=== PATIENT | male | born 1965 | race Caucasian/White ===

== ENCOUNTER 2022-10-27 13:33 | Outpatient (RCR) | payer OTHER, SELFPAY | END 2022-11-22 14:59 | disposition home or self-care (01) | LOC: PT 13:33 | PROVIDERS: PCP Family Medicine; Visit Provider Family Medicine | DX: S06.6XAD Traumatic subarachnoid hemorrhage with loss of consciousness status unknown, subsequent encounter (principal); W19.XXXD Unspecified fall, subsequent encounter | CPT/HCPCS: 97110; 97112; 97162; 97530 ==

== ENCOUNTER 2022-11-01 14:16 | Outpatient (RCR) | payer OTHER, SELFPAY | END 2022-12-26 16:34 | disposition home or self-care (01) | LOC: OT 14:16 | PROVIDERS: PCP Family Medicine; Visit Provider Family Medicine | DX: S06.6XAD Traumatic subarachnoid hemorrhage with loss of consciousness status unknown, subsequent encounter (principal); W19.XXXD Unspecified fall, subsequent encounter | CPT/HCPCS: 97018; 97022; 97110; 97165; 97530 ==

== ENCOUNTER 2022-11-30 12:50 | Outpatient (RCR) | payer OTHER, SELFPAY | END 2023-01-12 15:03 | disposition home or self-care (01) | LOC: ST 12:50 | PROVIDERS: PCP Family Medicine | DX: S06.6X0D Traumatic subarachnoid hemorrhage without loss of consciousness, subsequent encounter (principal); H53.9 Unspecified visual disturbance; R41.841 Cognitive communication deficit | CPT/HCPCS: 92507; 92523 ==

== ENCOUNTER 2023-10-10 07:19 | Outpatient (OUT) | payer OTHER, SELFPAY ==
--- OUTSIDE RECORDS SUMMARY | 2023-10-10 07:26 | XMS_ITS | CCD ---
Author Organization [facility] Inform ion Partnership [facility] Care Team Providers Care Kitchen Helper Name Role Phone DR SEBASTIAN CARO Attending Unavailable DR SEBASTIAN CARO Consulting Unavailable DR SEBASTIAN CARO Primary Care Unavailable DR SEBASTIAN CARO Admitting Unavailable Unavailable Primary Care Provider UnavailKeyana Scott Unavailable CINDY DE LA PAZ Attending Unavailable CINDY DE LA PAZ Attending Unavailable CINDY DE LA PAZ Attending Unavailable MD Ibrahima Zaman Attending Unavailable MD Ibrahima Zaman Attending Unavailable MD Ibrahima Zaman Attending Unavailable MD Ibrahima Zaman Attending Unavailable MD Ibrahima Zaman Attending Unavailable MD Ibrahima Zaman Attending Unavailable MD Ibrahima Zaman Attending Unavailable MD Ibrahima Zaman Attending Unavailable JUN ARGUETA Referring Unavailable JUN ARGUETA Referring Unavailable JUN ARGUETA Referring Unavailable BRIDGET CORBIN Consulting Unavailable JERMAINE ALEXANDRA Attending Unavailable JERMAINE ALEXANDRA Admitting Unavailable JUN ARGUETA Consulting Unavailable DOMINICK MORROW Consulting Unavailable KYLIE MEMBRENO Consulting Unavailable Allergies Allergy Classification Reported Allergen(s) Allergy Type Date of Onset Reaction(s) Facility (2 sources) Penicillins; Translations: [penicillins] Propensity to adverse reactions to drug 3 [facility] (1 source) Penicillin V Drug Allergy unknown Issuu Other Medications Current Medications Medication Drug Class(es) Dates Sig (Normalized) Sig (Original) acetaminophen 500 mg oral tablet (1 source) Start: 10-03-2022 acetaminophen (TYLENOL) tablet 1,000 mg 0.3 ml enoxaparin sodium 100 mg/ml prefilled syringe (2 sources) Low Molecular Weight Heparin Start: 10-02-2022 enoxaparin Sodium (LOVENOX) injection 30 mg ergocalciferol 1.25 mg oral capsule (1 source) Provitamin D2 Compound Start: 10-02-2022 take 1 capsule by mouth every week vitamin D (ERGOCALCIFEROL) 1.25 MG (49647 UT) CAPS capsule Take 1 capsule by mouth once a week 8 capsule 0 10/02/2022 Active fluticasone propionate 0.05 mg/actuat metered dose nasal spray (1 source) Corticosteroid Start: 02-06-2023 take 1 spray(s) nasal route once daily Fluticasone Propionate 50 MCG/ACT 1 spray in each nostril Nasally Once a day for 14 day(s) Jan, Active levETIRAcetam 500 mg oral tablet (3 sources) Start: 10-03-2022 End: 10-08-2022 take 1 tablet by mouth twice daily levETIRAcetam (KEPPRA) 500 MG tablet Take 1 tablet by mouth 2 times daily for 2 doses 60 tablet 0 10/07/2022 10/08/2022 Active Start: 10-01-2022 End: 10-03-2022 levETIRAcetam (KEPPRA) 500 m g/100 mL IVPB oxyCODONE hydrochloride 5 mg oral tablet (1 source) Opioid Agonist Start: 10-03-2022 oxyCODONE (RENATO ICODONE) immediate release tablet 5 mg polyethylene glycol 3350 07540 mg powder for oral solution (1 source) Osmotic Laxative Start: 10-01-2022 polyethylene glycol (GLYCOLAX) packet 17 g sertraline 50 mg oral tablet (4 sources) Serotonin Reuptake Inhibitor Start: 10-06-2022 sertraline (ZOLOFT) tablet 50 mg Start: 10-04-2022 End: 10-05-2022 take 25 mg by mouth once daily 25 mg, Oral, DAILY, Fir st dose on Mon10/04/22 at 0900, Until Discontinued Sertraline HCl A ctive Completed/Discontinued Medications Medication Drug Class(es) Dates Sig (Normalized) Sig (Original) 100 ml calcium gluconate 20 mg/ml injection (1 source) Start: 10-02-2022 End: 10-02-2022 calcium gluconate 2,000 mg in sodium chloride 100 mL ceFAZolin (ANCEF) 2000 mg in sterile water 20 mL IV syringe (3 sources) Start: 10-06-2022 End: 10-07-2022 2,000 mg, IntraVENous, EVERY 8 HOURS, 2 doses, First dose on Mon10/06/22 at 2200, Last dose on Mon10/07/22 at 0600 Antimicrobial Indications: Surgical Prophylaxis Administer over 5 mins. Start: 10-01-2022 End: 10-06-2022 ceFAZolin (ANCEF) 2000 mg in sterile water 20 mL IV syringe Start: 10-01-2022 End: 10-01-2022 ceFAZolin (ANCEF) 2000 mg in sterile water 20 mL IV syringe ceFAZolin 2000 mg in 20 mL SWFI IV Syringe IV syringe (1 source) Start: 10-01-2022 End: 10-01-2022 ceFAZolin 2000 mg in 20 mL SWFI IV Syringe IV syringe famotidine 20 mg oral tablet (2 sources) Histamine-2 Receptor Antagonist Start: 10-03-2022 End: 10-05-2022 famotidine (PEPCID) tablet 20 mg Start: 10-01-2022 End: 10-03-2022 famotidine (PEPCID) injectio n 20 mg 2 ml fentaNYL 0.05 mg/ml injection (1 source) Opioid Agonist Start: 10-01-2022 End: 10-01-2022 fentaNYL (SUBLIMAZE) injection 100 mcg Start: 10-01-2022 End: 10-01-2022 fentaNYL (SUBLIMAZE) injecti on 100 mcg iopamidol (ISOVUE-370) 76 % injection 130 mL (1 source) Start: 10-01-2022 End: 10-01-2022 iopamidol (ISOVUE-370) 76 % injection 130 mL iopamidol (ISOVUE-370) 76 % injection 75 mL (1 source) Start: 10-01-2022 End: 10-01-2022 iopamidol (ISOVUE-370) 76 % injection 75 mL Ketorolac (1 source) Nonsteroidal Anti-inflammatory Drug, Cyclooxygenase Inhibitor Start: 05-01-2017 Toradol per 15 mg Apr, 60 mg 10 ml lidocaine hydrochloride 10 mg/ml injection (1 source) Antiarrhythmic, Amide Local Anesthetic Start: 10-01-2022 End: 10-01-2022 lidocaine 1 % injection 20 mL Start: 10-01-2022 End: 10-01-2022 lidocaine 1 % injection 20 m L 2 ml ondansetron 2 mg/ml injection (1 source) Serotonin-3 Receptor Antagonist Start: 10-01-2022 End: 10-01-2022 ondansetron (ZOFRAN) injection 4 mg potassium phosphate 15 mmol in sodium chloride 0.9 % 250 mL IVPB (1 source) Start: 10-02-2022 End: 10-02-2022 potassium phosphate 15 mmol in sodium chloride 0.9 % 250 mL IVPB 5 ml sodium chloride 9 mg/ml injection (4 sources) Start: 10-01-2022 End: 10-05-2022 0.9 % sodium chloride infusion Start: 10-01-2022 End: 10-05-2022 sodium chloride flush 0.9 % injection 5-40 mL sodium phosphate 20 mmol in sodium chloride 0.9 % 250 mL IVPB (1 source) Start: 10-03-2022 End: 10-03-2022 sodium phosphate 20 mmol in sodium chloride 0.9 % 250 mL IVPB Problems Active Problems Problem Classification Problem Date Documented Da te Episodic/Chronic Acute cerebrovascular disease (6 sources) Hemorrhage into subarachnoid space of neuraxis; Translations: [Nontraumatic subarachnoid hemorrhage, unspecified] Onset: 10-01-2022 Chronic Intracranial injury (2 sources) Subarachnoid hemorrhage due to traumatic injury; Translations: [Traumatic intracranial subarachnoid hemorrhage (HCC)] Onset: 10-01-2022 Episodic Other screening for suspected conditions (not mental disorders or infectious disease) (1 source) Encounter for screening for malignant neoplasm of prostate; Translations: [ENC SCREEN MALIG NEOPLASM PROSTATE] Onset: 08-19-2021 Episodic Otitis media and related conditions (1 source) Unspecified nonsuppurative otitis media, unspecified ear Episodic Past or Other Problems Problem Classification Problem Date Documented Da te Episodic/Chronic Fracture of upper limb (7 sources) Closed Galeazzi fracture; Translations: [Galeazzi's fracture of left radius, initial encounter for closed fracture] Onset: 10-01-2022 Episodic Skull and face fractures (4 sources) Closed fracture of orbital floor (blow-out); Translations: [Fracture of orbital floor, unspecified side, initial encounter for closed fracture] Onset: 10-01-2022 Episodic Results Test Name Value Interpretation Reference Range Facil ity Ambulatory Visit Summaryon 0 09-11-2023 Ambulatory Visit Summary Ambulatory Visit Summary AZAEL AGOSTO :1965 Visit Date:09/11/2023 Ambulatory Visit Instructions Your Diagnosis Peripheral vision loss Seasonal allergic rhinitis due to pollen Fall on and from ladder, subsequent encounter Anxiety BMI 25.0-25.9,adult Overweight Nonsmoker Your Care Team Attending Physician - Ibrahima Zaman MD Primary Care Physician - Ibrahima Zaman MD This Is Your Medications List sertraline (sertraline 50 mg Tab) Procedures Performed History of repair of inguinal hernia. Discharge Vitals Temperature (Temporal Artery) 36.8 ?C Heart Rate (Peripheral) 76 Respiratory Rate 16 Blood Pressure 102/70 Height 173 cm Height 68 in Weight 77.7 kg Weight 170.94 lb BMI 25.96 What to do next Scheduled Follow-Up Appointments 2023 10:45 AM EDT With: Ibrahima Zaman MD Where: [facility] Normal [facility] Family Medicine Office/Clini c Noteon 09-11-2023 Family Medicine Office/Clinic Note Family Medicine Office/Clinic Note HPI Staff Azael is a 58 year old male presenting for a yearly check up Health Maintenance: Colonoscopy: refuses PSA: Last Labs: 09/12/22 questions/concerns: memory and vision not good History of Present Illness Patient is here for follow-up. Patient is really concerned about his memory. Patient states that he could be doing something such as picking out pain colors for his house. Being deep conversation with his about what colors they want and we do not want. And then 2 weeks later forget what they had even discussed. Patient does state he also forgets what he is doing if somebody stops him in the moment. Review of Systems PHQ Score Initial Depression Screen Score: 0 SCORE Physical Exam Vitals & Measurements T: 36.8 ?C(Temporal Artery) HR: 76(Peripheral) RR: 16 BP: 102/70 SpO2: 98% HT: 68 in HT: 173 cm WT: 77.7 kg WT: 170.94 lb BMI: 25.96 General: alert, no acute distress ENMT: oral mucosa moist, Cardiovascular: regular rate and rhythm, normal peripheral perfusion Respiratory: Lungs CTA, respirations non labored Extremities: no deformity, no trauma Neurological: oriented x 4, LOC appropriate for age, CN II-XII intact, motor strength equal & normal bilaterally, speech normal Abdomen: Soft, Nontender, Non-distended, + BS Assessment/Plan 1. 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 Seasonal allergic rhinitis due to pollen (J30.1: Allergic rhinitis due to pollen) - Stable 3. Fall on and from ladder, subsequent encounter (W11.XXXD: Fall on and from ladder, subsequent encounter) - Encouraged pt to follow up with neuro to help see if this TBI is causing the memory issues, or if other issues such as pseudodementia is. I do believe this is related to the TBI as the patient is forgetting things he was acutely involved in 4. Anxiety (F41.9: Anxiety disorder, unspecified) Patient is anxiety has improved significantly. Anxiety was related to concerns with having a job and being able to provide for his family. 5. BMI 25.0-25.9,adult (Z68.25: Body mass index [BMI] 25.0-25.9, adult) BMI education added to the chart 6. Overweight (E66.3: Overweight) Diet and exercise advised 7. Nonsmoker (Z78.9: Other specified health status) Please continue not to smoke. Total time spent preparing for the encounter, evaluating and assessing the patient, documenting the visit, and ordering appropriate follow-up work was 40 minutes. Follow-up No qualifying data available Patient Education BMI for Adults Problem List/Past Medical History Ongoing Anxiety Closed left hand fracture Fall on and from ladder, subsequent encounter Left hand fracture Lumbar strain Peripheral vision loss Seasonal allergic rhinitis due to pollen Historical No qualifying data Procedure/Surgical History History of repair of inguinal hernia. Medications sertraline 50 mg Tab, 50 mg= 1 tab(s), Oral, Daily, 1 refills Allergies penicillins (Unknown) Social History Tobacco Never (less than 100 in lifetime) Tobacco Use:. Never Smokeless Tobacco Use:., 09/11/2023 Family History Family history is negative Immunizations Vaccine Date Status Comments influenza virus vaccine, inactivated - Not Given Patient Refuses influenza virus vaccine, inactivated - Not Given Postpone due to refusal Normal [facility] Comment on above: Result Comment: Elec tronically Signed By: Ibrahima Zaman MD\.br\Date and Time Signed: 09/11/23 10:05 EDT Ambulatory Visit Summaryon 0 06-12-2023 Ambulatory Visit Summary AZAEL AGOSTO :1965 Visit Date:06/12/2023 Ambulatory Visit Instructions Your Diagnosis Anxiety Fall on and from ladder, subsequent encounter BMI 25.0-25.9,adult Over weight Nonsmoker Peripheral vision loss Your Care Team Attending Physician - Ibrahima Zaman MD Primary Care Physician - Ibrahima Zaman MD This Is Your Medications List sertraline (sertraline 50 mg Tab) Procedures Performed History of repair of inguinal hernia. Discharge Vitals Temperature (Temporal Artery) 37.1 ?C Heart Rate (Peripheral) 76 Respiratory Rate 16 Blood Pressure 120/82 Height 173 cm Height 68 in Weight 76.9 kg Weight 169.18 lb BMI 25.69 What to do next Scheduled Follow-Up Appointments Monday 9:15 AM EDT With: Ibrahima Zaman MD Where: [facility] [place] [address] [place] [address]- \.br\ Medications\.br \ What How Much When Instructions\.b r\ Unchanged sertraline (sertraline 50 mg Tab) 1 Tablets By Mouth Every day Pickup at [facility] #[id number]\.br\ Pharmacy Information\.br \ [facility] #[id number]: [address], [place] [id number] [phone]\.br\ Allergies\.br\ penicillins (Unknown)\.br\ Problems\.br\ Ongoing - Any problem that you are currently receiving treatment for.\.br\ Anxiety\.br\ Closed left hand fracture\.br\ Fall on and from ladder, subsequent encounter\.br\ Left hand fracture\.br\ Lumbar strain\.br\ Peripheral vision loss\.br\ Seasonal allergic rhinitis due to pollen\.br\ Patient Survey\.br\ You may receive a survey via text or e-mail asking about your office visit. Please share your experience with us by completing your survey. We appreciate your feedback and thank you for choosing us for your care.\.br\ \.br\ [facility] Medicine Office/Clini c Noteon 06-12-2023 Family Medicine Office/Clinic Note HPI Staff Azael is a 57 year old male presenting for 2 month follow up anxiety and recent OV with Dr De La Paz for the visual defect left eye and still advised not to drive Just saw Dr De La Paz again 06/09/23 and feels the peripheral vision is permanent vision loss for that part and will not change Follow up for Mental Status: Medication adherence- Yes, takes medication as prescribed Medication refill needed: yes Suicidal thoughts-Not at this time Most recent LUIS CARLOS: 0 Most recent PHQ: 0 questions/concerns: needs his sertraline refilled. Per , sherry terminated his job May 21, said there wasn't a job there for him. History of Present Illness - Here for follow up. - Still has the loss of vision. - Cannot see in the peripheral vision. - Otherwise, doing well. Review of Systems PHQ Score Initial Depression Screen Score: 0 SCORE Physical Exam Vitals & Measurements T: 37.1 ?C(Temporal Artery) HR: 76(Peripheral) RR: 16 BP: 120/82 SpO2: 98% HT: 68 in HT: 173 cm WT: 76.9 kg WT: 169.18 lb BMI: 25.69 General: alert, no acute distress ENMT: oral mucosa moist, Cardiovascular: regular rate and rhythm, normal peripheral perfusion Respiratory: Lungs CTA, respirations non labored Extremities: no deformity, no trauma Neurological: oriented x 4, LOC appropriate for age, CN II-XII intact, motor strength equal & normal bilaterally, speech normal Abdomen: Soft, Nontender, Non-distended, + BS Assessment/Plan 1. Anxiety (F41.9: Anxiety disorder, unspecified) - Well controlled. - Continue taking meds as before 2. Fall on and from ladder, subsequent encounter (W11.XXXD: Fall on and from ladder, subsequent encounter) - Stable. - No change 3. BMI 25.0-25.9,adult (Z68.25: Body mass index [BMI] 25.0-25.9, adult) - BMI education 4. Over weight (E66.3: Overweight) - Diet and exercise advised 5. Nonsmoker (Z78.9: Other specified health status) - Please continue to not smoke 6. 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 - Sees Optho - Paperwork done. Orders: sertraline, 50 mg = 1 tab(s), Oral, Daily, # 90 tab(s), Refills(s) 1, Pharmacy: [facility] #[id number], 173, cm, 06/12/23 13:01:00 EDT, Height/Length Dosing, 76.9, kg, 06/12/23 13:01:00 EDT, Weight Dosing Follow-up No qualifying data available Problem List/Past Medical History Ongoing Anxiety Closed left hand fracture Fall on and from ladder, subsequent encounter Left hand fracture Lumbar strain Peripheral vision loss Seasonal allergic rhinitis due to pollen Historical No qualifying data Procedure/Surgical History History of repair of inguinal hernia. Medications sertraline 50 mg Tab, 50 mg= 1 tab(s), Oral, Daily, 1 refills Allergies penicillins (Unknown) Social History Tobacco Never (less than 100 in lifetime) Tobacco Use:. Never Smokeless Tobacco Use:., 06/12/2023 Family History Family history is negative Immunizations Vaccine Date Status Comments influenza virus vaccine, inactivated - Not Given Patient Refuses influenza virus vaccine, inactivated - Not Given Postpone due to refusal [facility] Comment on above: Result Comment: Elec tronically Signed By: Austyn FIGUEROA, Ibrahima Pritchard\.br\Date and Time Signed: 06/12/23 13:22 EDT Consultation Noteon 06-07-19 Consultation Note [id number] 6E#1.00TIFF [facility] Consultation Noteon 05-26-19 Consultation Note [id number] 2E#1.00TIFF [facility] 04-26-2023 Forms [id number] D8#1.00TIFF [facility] 04-03-2023 Forms [id number] 98#1.00TIFF [facility] Forms [id number] D7#1.00TIFF Sravant[facility] Family Medicine Office/Clini c Noteon 03-29-2023 Family Medicine Office/Clinic Note HPI Staff Azael is a 57 year old male presenting for 2 month follow up and discuss RTW or extend currently off through Mar 23 due to the vision issues Follow up for Mental Status: Medication adherence- Yes, takes medication as prescribed Medication refill needed: no Suicidal thoughts-Not at this time Most recent LUIS CARLOS: Most recent PHQ: flu: due questions/concerns: c/o back pain and no improvement with vision History of Present Illness Azael Agosto is a 57-year-old male who presents today for a follow-up evaluation. The patient reports that his visual acuity has not improved and has remains unchanged. He reports having a recurrent back issue. He says this is the third episode of it. He notes he was diagnosed with degenerative disc disease in [place] after a comprehensive examination. He reports starting to feel pain in his spine while moving something recently. Although the pain has shown some improvement, yesterday, 03/22/2023, he was unable to bend down to remove his socks, requiring assistance from his grandson. He rated the pain as 10. He estimated his current pain level to be around 2 or 3. He reports the pain is mostly in the mid-back region. He felt relief as he stretched his body slowly, but the pain came back when he resumed sitting position. Despite the discomfort, he finds the pain manageable. His pain is relieved when stretched towards lumbar flexion. His pain on 03/22/2023 was a 10/10 but today he is at 2 or 3/10. The integrated logistics programs director did not state on his note that the patient should be off work, but they recommended a follow-up to check for vision improvement. He only has 15 days until his short term disability assistance . He spoke with the hr receptionist of Dr. De La Paz'abran to ask for a medical leave and was told that it is a task for a general practitioner. He has been struggling with anxiety ever since he stopped seeing Dr. Molina. He mentions that his doctor told him that he was fine and that he did not require any further surgery. He reports that his hernia surgery was performed by Dr Caro 40 years ago. He also mentions that Dr Caro informed him about a problem with his back but assured him not to be concerned about it. He reports having cerumen accumulation problem. He applies one or two drops of docusate ear drops in his ears as a remedy. Physical Exam Vitals & Measurements HR: 91(Peripheral) BP: 124/92 SpO2: 95% HT: 68 in HT: 173 cm WT: 78.4 kg WT: 172.48 lb BMI: 26.2 General: alert, no acute distress ENMT: oral mucosa moist, no pharyngeal erythema or exudate Cardiovascular: regular rate and rhythm, normal peripheral perfusion Respiratory: Lungs CTA, respirations non labored Extremities: no deformity, no trauma Neurological: oriented x 4, LOC appropriate for age, CN II-XII intact, motor strength equal & normal bilaterally, speech normal Musculoskeletal: Minimal pain to palpation in the left lower lumbar region in the paraspinal area. Assessment/Plan 1. Anxiety (F41.9: Anxiety disorder, unspecified) His anxiety is well controlled despite frustrations with him being unable to work. He will be reaching out to his integrated logistics programs director to consult for a likelihood for improvement. If not, we will to take the patient off of work and place him on jail disability. Since I do not specialize in ophthalmology, I am uncertain of his ability to work despite the changes in vision. We will leave it to his integrated logistics programs director. 2. Fall on and from ladder, subsequent encounter (W11.XXXD: Fall on and from ladder, subsequent encounter) He has been doing well except for his vision. I encouraged the patient to follow up with ophthalmology. 3. Seasonal allergic rhinitis due to pollen (J30.1: Allergic rhinitis due to pollen) He will continue with over the counter medication as needed. 4. BMI 26.0-26.9,adult (Z68.26: Body mass index [BMI] 26.0-26.9, adult) BMI education given. 5. Non-smoker (Z78.9: Other specified health status) Please continue not to smoke. 6. Lumbar strain (S39.012A: Strain of muscle, fascia and tendon of lower back, initial encounter) We discussed lifestyle modifications along with stretching and exercise to improve his lumbar strain. Portions of this record may have been created with voice recognition artificial intelligence software, specifically [employer], [employer] and or Dragon [employer]ient Experience. Substitutions may have occurred due to the inherent limitations of voice recognition and artificial intelligence software. Documentation services were performed after patient or guardian consented to allow Dragon [employer]ient [employer]perience to record this visit. SHIRLEY pet nutrition specialist and provider reviewed before signing. SHIRLEY: Xiomara Ferrari Follow-up No qualifying data available Problem List/Past Medical History Ongoing Anxiety Closed left hand fracture Fall on and from ladder, subsequent encounter Left hand fracture Lumbar strain Seasonal allergic rhinitis due to pollen (more content not included)... Normal [facility] Comment on above: Result Comment: Elec tronically Signed By: Ibrahima Zaman MD\.br\Date and Time Signed: 03/29/23 11:20 EST\.br\Electronically Co-Signed By: Jerry Momin\.br\Date and Time Co-Signed: 03/23/23 18:08 EST [facility] 03-07-2023 Forms [id number] FF#1.00TIFF [facility] 03-01-2023 Forms [id number] BE#1.00TIFF [facility] Consultation Noteon 02-22-19 Consultation Note [id number] EF#1.00TIFF [facility] Ambulatory Visit Summaryon 1 03-18-2022 Ambulatory Visit Summary AZAEL SCHNEIDER A :1965 Visit Date:01/16/2023 Ambulatory Visit Instructions Your Diagnosis Fall on and from ladder, subsequent encounter Anxiety Closed fracture of left hand with routine healing, subsequent encounter Subdural hematoma BMI 26.0-26.9,adult Overweight Nonsmoker Your Care Team Attending Physician - Ibrahima Zaman MD. Primary Care Physician - Ibrahima Zaman MD This Is Your Medications List Contact prescribing physician if questions or concerns sertraline (sertraline 50 mg Tab) Procedures Performed History of repair of inguinal hernia. Discharge Vitals Temperature (Temporal Artery) 37.2 ?C Heart Rate (Peripheral) 74 Respiratory Rate 16 Blood Pressure 136/78 Height 173.3 cm Height 68 in Weight 79.2 kg Weight 174.24 lb BMI 26.37 What to do next Scheduled Follow-Up Appointments 2023 1:00 PM EST With: Austyn FIGUEROA, Ibrahima Pritchard Where: [facility] [address] [place] [address]- \.br\ Medications\.br \ What How Much When Instructions\.b r\ Unchanged sertraline (sertraline 50 mg Tab) 1 Tablets By Mouth Every day Contact prescribing physician if questions or concerns \.br\ Medications and Immunizations Administered\.b r\ Not Given\.br\ influenza virus vaccine, inactivated, Patient Refuses\.br\ Allergies\.br\ penicillins (Unknown)\.br\ Problems\.br\ Ongoing - Any problem that you are currently receiving treatment for.\.br\ Anxiety\.br\ Closed left hand fracture\.br\ Fall on and from ladder, subsequent encounter\.br\ Left hand fracture\.br\ Seasonal allergic rhinitis due to pollen\.br\ Patient Survey\.br\ You may receive a survey via text or e-mail asking about your office visit. Please share your experience with us by completing your survey. We appreciate your feedback and thank you for choosing us for your care.\.br\ Education Materials\.br\ BMI for Adults\.br\ What is BMI?\.br\ Body mass index (BMI) is a number that is calculated from a person's weight and height. BMI can help estimate how much of a person's weight is composed of fat. BMI does not measure body fat directly. Rather, it is an alternative to procedures that directly measure body fat, which can be difficult and expensive.\.br\ BMI can help identify people who may be at higher risk for certain medical problems.\.br\ What are BMI measurements used for?\.br\ BMI is used as a screening tool to identify possible weight problems. It helps determine whether a person is obese, overweight, a healthy weight, or underweight.\.b r\ BMI is useful for:\.br\ ? \.br\ Identifying a weight problem that may be related to a medical condition or may increase the risk for medical problems.\.br\ ? \.br\ Promoting changes, such as changes in diet and exercise, to help reach a healthy weight. BMI screening can be repeated to see if these changes are working.\.br\ How is BMI calculated?\.br \ BMI involves measuring your weight in relation to your height. Both height and weight are measured, and the BMI is calculated from those numbers. This can be done either in [place] or metric measurements. Note that charts and online BMI calculators are available to help you find your BMI quickly and easily without having to do these calculations yourself.\.br\ To calculate your BMI in [place] measurements:\. br\ \.br\ 1. \.br\ Measure your weight in pounds (lb).\.br\ 2. \.br\ Multiply the number of pounds by 703.\.br\ ? \.br\ For example, for a person who weighs 180 lb, multiply that number by 703, which equals 126,540.\.br\ 3. \.br\ Measure your height in inches. Then multiply that number by itself to get a measurement called inches squared. \.br\ ? \.br\ For example, for a person who is 70 inches tall, the inches squared measurement is 70 inches x 70 inches, which equals 4,900 inches squared.\.br\ 4. \.br\ Divide the total from step 2 (number of lb x 703) by the total from step 3 (inches squared): 126,540 ? 4,900 = 25.8. This is your BMI.\.br\ To calculate your BMI in metric measurements:\. br\ 1. \.br\ Measure your weight in kilograms (kg).\.br\ 2. \.br\ Measure your height in meters (m). Then multiply that number by itself to get a measurement called meters squared. \.br\ ? \.br\ For example, for a person who is 1.75 m tall, the meters squared measurement is 1.75 m x 1.75 m, which is equal to 3.1 meters squared.\.br\ 3. \.br\ Divide the number of kilograms (your weight) by the meters squared number. In this example: 70 ? 3.1 = 22.6. This is your BMI.\.br\ What do the results mean?\.br\ BMI charts are used to identify whether you are underweight, normal weight, overweight, or obese. The following guidelines will be used:\.br\ ? \.br\ Underweight: BMI less than 18.5.\.br\ ? \.br\ Normal weight: BMI between 18.5 and 24.9.\.br\ ? \.br\ Overweight: BMI between 25 and 29.9.\.br\ ? \.br\ Obese: BMI of 30 or above.\.br\ Keep these notes in mind:\.br\ ? \.br\ Weight includes both fat and muscle, so someone with a muscular build, such as an athlete, may have a BMI that is higher than 24.9. In cases like these, BMI is not an accurate measure of body fat.\.br\ ? \.br\ To determine if excess body fat is the cause of a BMI of 25 or higher, further assessments may need to be done by a health care provider.\.br\ ? \.br\ BMI is usually interpreted in the same way for men and women.\.br\ Where to find more information\.br \ For more information about BMI, including tools to quickly calculate your BMI, go to these websites:\.br\ ? \.br\ Centers for Disease Control and Prevention: www.cdc.gov\.br \ ? \.br\ [place] [employer]: www.heart.org\. br\ ? \.br\ National Heart, Lung, and Blood Hooper: www.nhlbi.nih.g ov\.br\ Summary\.br\ ? \.br\ Body mass index (BMI) is a number that is calculated from a person's weight and height.\.br\ ? \.br\ BMI may help estimate how much of a person's weight is composed of fat. BMI can help identify those who may be at higher risk for certain medical problems.\.br\ ? \.br\ BMI can be measured using [place] measurements or metric measurements.\. br\ ? \.br\ BMI charts are used to identify whether you are underweight, normal weight, overweight, or obese.\.br\ This information is not intended to replace advice given to you by your health care provider. Make sure you discuss any questions you have with your health care provider.\.br\ Document Revised: 10/30/2019 Document Reviewed: 09/06/2019 Elsevier Patient Education ? 2022 [employer].br\ \.br\ [facility] Ambulatory Visit Summary AZAEL AGOSTO :1965 Visit Date:01/16/2023 Ambulatory Visit Instructions Your Diagnosis Fall on and from ladder, subsequent encounter Anxiety Closed fracture of left hand with routine healing, subsequent encounter Subdural hematoma BMI 26.0-26.9,adult Overweight Nonsmoker Your Care Team Attending Physician - Ibrahima Zaman MD Primary Care Physician - Ibrahima Zaman MD This Is Your Medications List sertraline (sertraline 50 mg Tab) Procedures Performed History of repair of inguinal hernia. Discharge Vitals Temperature (Temporal Artery) 37.2 ?C Heart Rate (Peripheral) 74 Respiratory Rate 16 Blood Pressure 136/78 Height 173.3 cm Height 68 in Weight 79.2 kg Weight 174.24 lb BMI 26.37 What to do next Scheduled Follow-Up Appointments 2023 1:00 PM EST With: Ibrahima Zaman MD Where: [facility] Normal [address] [place] [address]- \.br\ Medications\.br \ What How Much When Instructions\.b r\ Unchanged sertraline (sertraline 50 mg Tab) 1 Tablets By Mouth Every day\.br\ Medications and Immunizations Administered\.b r\ Not Given\.br\ influenza virus vaccine, inactivated, Patient Refuses\.br\ Allergies\.br\ penicillins (Unknown)\.br\ Problems\.br\ Ongoing - Any problem that you are currently receiving treatment for.\.br\ Anxiety\.br\ Closed left hand fracture\.br\ Fall on and from ladder, subsequent encounter\.br\ Left hand fracture\.br\ Seasonal allergic rhinitis due to pollen\.br\ Patient Survey\.br\ You may receive a survey via text or e-mail asking about your office visit. Please share your experience with us by completing your survey. We appreciate your feedback and thank you for choosing us for your care.\.br\ \.br\ [facility] Family Medicine Office/Clini c Noteon 01-16-2023 Family Medicine Office/Clinic Note HPI Staff Azael is a 57 year old male presenting for follow up anxiety Follow up for Mental Status: Medication adherence- Yes, takes medication as prescribed MEdication refill needed: no Suicidal thoughts-Not at this time Most recent LUIS CARLOS: 0 Most recent PHQ: 0 flu: refused questions/concerns: released from neuro and ortho and all care will go to PCP now Gave him 6 more weeks off work most she would extend. 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 - Anxiety is doing well. - For more information please see staff HPI. Review of Systems PHQ Score Initial Depression Screen Score: 0 SCORE Physical Exam Vitals & Measurements T: 37.2 ?C(Temporal Artery) HR: 74(Peripheral) RR: 16 BP: 136/78 SpO2: 100% HT: 68 in HT: 173.3 cm WT: 79.2 kg WT: 174.24 lb BMI: 26.37 General: alert, no acute distress ENMT: oral mucosa moist, Cardiovascular: normal peripheral perfusion Respiratory: respirations non labored Extremities: no deformity, no trauma Neurological: oriented x 4, LOC appropriate for age, CN II-XII intact, motor strength equal & normal bilaterally, speech normal Assessment/Plan 1. Fall on and from ladder, subsequent encounter (W11.XXXD: Fall on and from ladder, subsequent encounter) - Doing good. NS ok-ed him to go back to work - Will monitor 2. Anxiety (F41.9: Anxiety disorder, unspecified) - Doing great. - Pt is the calmest he has been 3. Closed fracture of left hand with routine healing, subsequent encounter (S62.92XD: Unspecified fracture of left wrist and hand, subsequent encounter for fracture with routine healing) - NO issues today. 4. Subdural hematoma (S06.5XAA: Traumatic subdural hemorrhage with loss of consciousness status unknown, initial encounter) - Resolved but still having some eye sight issues. - WIll follow - Needs Ana Cristina to put him off further from work as its 2/2 his sight now 5. BMI 26.0-26.9,adult (Z68.26: Body mass index [BMI] 26.0-26.9, adult) - BMI education given 6. Overweight (E66.3: Overweight) - Diet and exercise advised 7. Nonsmoker (Z78.9: Other specified health status) - Please continue to not smoke. Follow-up No qualifying data available Patient Education BMI for Adults Problem List/Past Medical History Ongoing Anxiety Closed left hand fracture Fall on and from ladder, subsequent encounter Left hand fracture Seasonal allergic rhinitis due to pollen Historical No qualifying data Procedure/Surgical History History of repair of inguinal hernia. Medications sertraline 50 mg Tab, 50 mg= 1 tab(s), Oral, Daily, 1 refills Allergies penicillins (Unknown) Social History Tobacco Never (less than 100 in lifetime) Tobacco Use:. Never Smokeless Tobacco Use:., 01/16/2023 Family History Family history is negative Immunizations Vaccine Date Status Comments influenza virus vaccine, inactivated - Not Given Patient Refuses influenza virus vaccine, inactivated - Not Given Postpone due to refusal Normal [facility] Comment on above: Result Comment: Elec tronically Signed By: Austyn FIGUEROA, Ibrahima Pritchard\.br\Date and Time Signed: 01/16/23 14:39 EST Patient Educationon 01-17-20 23 Patient Education Nutrition BMI for Adults What is BMI? Body mass index (BMI) is a number that is calculated from a person's weight and height. BMI can help estimate how much of a person's weight is composed of fat. BMI does not measure body fat directly. Rather, it is an alternative to procedures that directly measure body fat, which can be difficult and expensive. BMI can help identify people who may be at higher risk for certain medical problems. What are BMI measurements used for? BMI is used as a screening tool to identify possible weight problems. It helps determine whether a person is obese, overweight, a healthy weight, or underweight. BMI is useful for: ? Identifying a weight problem that may be related to a medical condition or may increase the risk for medical problems. ? Promoting changes, such as changes in diet and exercise, to help reach a healthy weight. BMI screening can be repeated to see if these changes are working. How is BMI calculated? BMI involves measuring your weight in relation to your height. Both height and weight are measured, and the BMI is calculated from those numbers. This can be done either in [place] or metric measurements. Note that charts and online BMI calculators are available to help you find your BMI quickly and easily without having to do these calculations yourself. To calculate your BMI in [place] measurements: 1. Measure your weight in pounds (lb). 2. Multiply the number of pounds by 703. ? For example, for a person who weighs 180 lb, multiply that number by 703, which equals 126,540. 3. Measure your height in inches. Then multiply that number by itself to get a measurement called inches squared. ? For example, for a person who is 70 inches tall, the inches squared measurement is 70 inches x 70 inches, which equals 4,900 inches squared. 4. Divide the total from step 2 (number of lb x 703) by the total from step 3 (inches squared): 126,540 ? 4,900 = 25.8. This is your BMI. To calculate your BMI in metric measurements: 1. Measure your weight in kilograms (kg). 2. Measure your height in meters (m). Then multiply that number by itself to get a measurement called meters squared. ? For example, for a person who is 1.75 m tall, the meters squared measurement is 1.75 m x 1.75 m, which is equal to 3.1 meters squared. 3. Divide the number of kilograms (your weight) by the meters squared number. In this example: 70 ? 3.1 = 22.6. This is your BMI. What do the results mean? BMI charts are used to identify whether you are underweight, normal weight, overweight, or obese. The following guidelines will be used: ? Underweight: BMI less than 18.5. ? Normal weight: BMI between 18.5 and 24.9. ? Overweight: BMI between 25 and 29.9. ? Obese: BMI of 30 or above. Keep these notes in mind: ? Weight includes both fat and muscle, so someone with a muscular build, such as an athlete, may have a BMI that is higher than 24.9. In cases like these, BMI is not an accurate measure of body fat. ? To determine if excess body fat is the cause of a BMI of 25 or higher, further assessments may need to be done by a health care provider. ? BMI is usually interpreted in the same way for men and women. Where to find more information For more information about BMI, including tools to quickly calculate your BMI, go to these websites: ? Centers for Disease Control and Prevention: www.cdc.gov ? [place] Heart [employer]: www.heart.org ? National Heart, Lung, and Blood Hooper: www.nhlbi.nih.gov Summary ? Body mass index (BMI) is a number that is calculated from a person's weight and height. ? BMI may help estimate how much of a person's weight is composed of fat. BMI can help identify those who may be at higher risk for certain medical problems. ? BMI can be measured using [place] measurements or metric measurements. ? BMI charts are used to identify whether you are underweight, normal weight, overweight, or obese. This information is not intended to replace advice given to you by your health care provider. Make sure you discuss any questions you have with your health care provider. Document Revised: 10/30/2019 Document Reviewed: 09/06/2019 [employer] Patient Education ? 2022 [employer] Normal [facility] XR WRIST LEFT (MIN 3 VIEWS)o n 01-06-2023 XR WRIST LEFT (MIN 3 VIEWS) History: 57-year-old male status post open reduction internal fixation left distal radius Comparison: 11/23/2022 Findings: 3 views of the left wrist (AP/lateral/oblique ) in a skeletally mature patient showing redemonstration of orthopedic hardware in the form plate and screws to left distal radius. No signs of hardware failure or loosening. Interval callus formation and bony consolidation when compared to prior films. No new acute osseous abnormalities. Joint alignment well-maintained. Impression: Stable hardware left wrist with interval healing Interpreted by: Jun Argueta DO Signed by: Jun Argueta DO 01/06/23 Final result Normal [facility] Discharge Note - OTon 2022 Discharge Note - OT [id number] 20#1.00TIFF Normal [facility] OT - Progress Noteson 2022 OT - Progress Notes [id number] 0A#1.00TIFF Normal [facility] XR WRIST LEFT (MIN 3 VIEWS)o n 12-19-2022 XR WRIST LEFT (MIN 3 VIEWS) History: 57-year-old male status post open reduction internal fixation left distal radius Comparison: 10/26/2022 Findings: 3 views of the left wrist (AP/lateral/oblique ) in a skeletally mature patient showing redemonstration orthopedic hardware in the form plate and screws to left distal radius. No signs of hardware failure or loosening. Interval callus formation when compared to prior films. Joint alignment well-maintained. No new acute osseous abnormalities. Impression: Stable hardware left wrist Interpreted by: Jun Argueta DO Signed by: Jun Argueta DO 12/19/22 Final result Normal [facility] Discharge Note - PTon 2022 Discharge Note - PT [id number] 53#1.00CD:[address] [facility] PT - Progress Noteson 2022 PT - Progress Notes [id number] 04#1.00CD:[address] [facility] Ambulatory Visit Summaryon 0 11-14-2022 Ambulatory Visit Summary AZAEL AGOSTO :1965 Visit Date:11/14/2022 Ambulatory Visit Instructions Your Diagnosis BMI 25.0-25.9,adult Overweight Anxiety Your Care Team Attending Physician - Ibrahima Zaamn MD Primary Care Physician - Ibrahima Zaman MD This Is Your Medications List sertraline (sertraline 50 mg Tab) Procedures Performed History of repair of inguinal hernia. Discharge Vitals Temperature (Oral) 36.8 ?C Heart Rate (Peripheral) 68 Respiratory Rate 14 Blood Pressure 136/74 Height 173.3 cm Height 68 in Weight 76.1 kg Weight 167.42 lb BMI 25.34 What to do next Scheduled Follow-Up Appointments Monday 2:20 PM EST With: Ibrahima Zaman MD Where: [facility] Normal [address] [place] [address]- \.br\ Medications\.br \ What How Much When Instructions\.b r\ Unchanged sertraline (sertraline 50 mg Tab) 1 Tablets By Mouth Every day\.br\ Medications and Immunizations Administered\.b r\ Not Given\.br\ influenza virus vaccine, inactivated, Postpone due to refusal\.br\ Allergies\.br\ penicillins (Unknown)\.br\ Problems\.br\ Ongoing - Any problem that you are currently receiving treatment for.\.br\ Anxiety\.br\ Fall\.br\ Hand fracture, left\.br\ Laceration of leg\.br\ Physical exam\.br\ Seasonal allergic rhinitis due to pollen\.br\ \.br\ [facility] Ambulatory Visit Summary AZAEL AGOSTO :1965 Visit Date:11/14/2022 Ambulatory Visit Instructions Your Diagnosis BMI 25.0-25.9,adult Overweight Your Care Team Attending Physician - Ibrahima Zaman MD Primary Care Physician - Ibrahima Zaman MD This Is Your Medications List sertraline (sertraline 50 mg Tab) Procedures Performed History of repair of inguinal hernia. Discharge Vitals Temperature (Oral) 36.8 ?C Heart Rate (Peripheral) 68 Respiratory Rate 14 Blood Pressure 136/74 Height 173.3 cm Height 68 in Weight 76.1 kg Weight 167.42 lb BMI 25.34 What to do next Scheduled Follow-Up Appointments Monday 2:20 PM EST With: Ibrahima Zaman MD Where: [place] [address]- \.br\ Medications\.br \ What How Much When Instructions\.b r\ Unchanged sertraline (sertraline 50 mg Tab) 1 Tablets By Mouth Every day\.br\ Medications and Immunizations Administered\.b r\ Not Given\.br\ influenza virus vaccine, inactivated, Postpone due to refusal\.br\ Allergies\.br\ penicillins (Unknown)\.br\ Problems\.br\ Ongoing - Any problem that you are currently receiving treatment for.\.br\ Anxiety\.br\ Fall\.br\ Hand fracture, left\.br\ Laceration of leg\.br\ Physical exam\.br\ Seasonal allergic rhinitis due to pollen\.br\ \.br\ [facility] Ambulatory Visit Summary AZAEL AGOSTO :1965 Visit Date:11/14/2022 Ambulatory Visit Instructions Your Diagnosis BMI 25.0-25.9,adult Overweight Your Care Team Attending Physician - Ibrahima Zaman MD Primary Care Physician - Ibrahima Zaman MD This Is Your Medications List sertraline (sertraline 50 mg Tab) Procedures Performed History of repair of inguinal hernia. Discharge Vitals Temperature (Oral) 36.8 ?C Heart Rate (Peripheral) 68 Respiratory Rate 14 Blood Pressure 136/74 Height 173.3 cm Height 68 in Weight 76.1 kg Weight 167.42 lb BMI 25.34 What to do next Scheduled Follow-Up Appointments Monday 8:40 AM EDT With: Ibrahima Zaman MD Where: [facility] Normal [facility] Medicine Office/Clini c Noteon 11-14-2022 Family Medicine Office/Clinic Note HPI Staff Azeal is a 57 year old male presenting for follow up after a fall facial fractures, laceration left leg, subdural hematoma, anxiety Still with eye issues, can't see out left eye. Memory a bit better, but having issues with things from 2 weeks ago, short term Follow up for Mental Status: Medication adherence- Yes, takes medication as prescribed MEdication refill needed: yes on the sertraline Suicidal thoughts-Not at this time Most recent LUIS CARLOS: 1 Most recent PHQ: 0 flu: refused questions/concerns: sees neurologist this week but can't see opth until dec 19 Dr Alaniz in [place] and can't see well in left eye and can't return to work with his eyesight the way it is and driving. History of Present Illness - Here for follow up. - states he is doing better. - Still having eye issues. - Needing visual rehab - Pt states they have tried to get into the eye doctor, but next apt is in november. - Pt is hoping for neurosurgeries help - Hand is doing better. - No new issues today. Review of Systems PHQ Score Initial Depression Screen Score: 0 Physical Exam Vitals & Measurements T: 36.8 ?C(Oral) HR: 68(Peripheral) RR: 14 BP: 136/74 SpO2: 96% HT: 68 in HT: 173.3 cm WT: 76.1 kg WT: 167.42 lb BMI: 25.34 General: alert, no acute distress ENMT: oral mucosa moist, Cardiovascular: regular rate and rhythm, normal peripheral perfusion Respiratory: Lungs CTA, respirations non labored Extremities: no deformity, no trauma Neurological: oriented x 4, LOC appropriate for age, CN II-XII intact, motor strength equal & normal bilaterally, speech normal Abdomen: Soft, Nontender, Non-distended, + BS Assessment/Plan 1. Anxiety (F41.9: Anxiety disorder, unspecified) - Doing well. - Stable - Needs refills 2. Fall on and from ladder, subsequent encounter (W11.XXXD: Fall on and from ladder, subsequent encounter) - Improving. - Seeing Neurosurgery next week, plastics then ortho - Significant improvement 3. Left hand fracture (S62.92XA: Unspecified fracture of left wrist and hand, initial encounter for closed fracture) - Seeing ortho next week 4. BMI 25.0-25.9,adult (Z68.25: Body mass index [BMI] 25.0-25.9, adult) - BMI education given 5. Overweight (E66.3: Overweight) - Diet and exercise advised. Orders: sertraline, 50 mg = 1 tab(s), Oral, Daily, # 90 tab(s), Refills(s) 1, Pharmacy: [id number], 173.3, cm, 11/14/22 14:30:00 EDT, Height/Length Dosing, 76.1, kg, 11/14/22 14:30:00 EDT, Weight Dosing Follow-up No qualifying data available Problem List/Past Medical History Ongoing Anxiety Fall on and from ladder, subsequent encounter Hand fracture, left Left hand fracture Seasonal allergic rhinitis due to pollen Historical No qualifying data Procedure/Surgical History History of repair of inguinal hernia. Medications sertraline 50 mg Tab, 50 mg= 1 tab(s), Oral, Daily, 1 refills Allergies penicillins (Unknown) Social History Tobacco Never (less than 100 in lifetime) Tobacco Use:. Never Smokeless Tobacco Use:., 11/14/2022 Family History Family history is negative Immunizations Vaccine Date Status Comments influenza virus vaccine, inactivated - Not Given Postpone due to refusal [facility] Comment on above: Result Comment: Elec tronically Signed By: Austyn FIGUEROA, Ibrahima Pritchard\.br\Date and Time Signed: 11/14/22 15:10 EDT XR WRIST LEFT (MIN 3 VIEWS)o n 11-14-2022 XR WRIST LEFT (MIN 3 VIEWS) History: ORIF left distal radius fracture Comparison: 10/06/2022 Findings: 3 views of the left wrist (AP, oblique, lateral) in a skeletally mature patient showing internal fixation of a comminuted distal radius fracture in the form of a plate and multiple screws. No change in fracture alignment, hardware complications or loss of fixation. No new fractures or dislocations. Impression: Stable ORIF left distal radius fracture. Interpreted by: Jun Argueta DO Signed by: Jun Argueta DO 11/14/22 Final result Normal [facility] Plan of Care - PT/OT/Speecho n 11-11-2022 Plan of Care - PT/OT/Speech [id number] 7#1.00CD:[address] [facility] OT - Progress Noteson 2022 OT - Progress Notes [id number] 4#1.00CD:[address] [facility] PT - Progress Noteson 2022 PT - Progress Notes [id number] E6#1.00CD:[address] [facility] Ambulatory Visit Summaryon 0 10-13-2022 Ambulatory Visit Summary SURENDRA RENUKA :1965 Visit Date:10/13/2022 Ambulatory Visit Instructions Your Diagnosis Hand fracture, left Laceration of leg Anxiety Subdural hematoma BMI 24.0-24.9, adult Your Care Team Attending Physician - Ibrahima Zaman MD Primary Care Physician - Ibrahima Zaman MD This Is Your Medications List sertraline (sertraline 25 mg Tab) Procedures Performed History of repair of inguinal hernia. Discharge Vitals Temperature (Oral) 36.8 ?C Heart Rate (Peripheral)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 Performed By: #### U A, UMICAO #### [facility] [address] [place] [address] Assistant Hvac Mechanic: Joe Hess MD MCHC (RBC) [Mass/Vol] 34.0 g/dL Normal 28.4-34.8 [facility] Comment on above: Performed By: #### U LAURA Hedrick #### [facility] [address] [place] [address] Assistant Hvac Mechanic: Joe Hess MD MCV (RBC) [Entitic vol] 93.0 fL Normal 82.6-102.9 [facility] Comment on above: Performed By: #### U A, UMHARSHILO #### [facility] [address] [place] [address] Assistant Hvac Mechanic: Joe Hess MD NRBC Automated 0.0 per 100 WBC Normal 0.0 [facility] Comment on above: Performed By: #### U LAURA Hedrick #### [address] [address] Assistant Hvac Mechanic: Joe Hess MD Platelet mean volume (Bld) [Entitic vol] 9.2 fL Normal 8.1-13.5 [facility] Comment on above: Performed By: #### U LAURA Hedrick #### [address] [address] Assistant Hvac Mechanic: Joe Hess MD Platelets (Bld) [#/Vol] 204 10*3/uL Normal 138-453 [facility] Comment on above: Performed By: #### U AVALENTINEO #### [address] [address] Assistant Hvac Mechanic: Joe Hess MD RBC (Bld) [#/Vol] 4.43 10*6/uL Normal 4.21-5.77 [facility] Comment on above: Performed By: #### U A, UMICAO #### [facility] [address] [place] [address] Assistant Hvac Mechanic: Joe Hess MD WBC (Bld) [#/Vol] 5.1 10*3/uL Normal 3.5-11.3 [facility] Comment on above: Performed By: #### U LAURA Hedrick #### [address] [address] Assistant Hvac Mechanic: Joe Hess MD Abs. Basophil <0.03 Normal 0.00-0.20 [facility] Comment on above: Performed By: #### B MP, CDP #### [address] [address] Assistant Hvac Mechanic: Joe Hess MD Abs.Imm.Granulocyte 0.03 k/uL Normal 0.00-0.30 [facility] Comment on above: Performed By: #### B MP, CDP #### [address] [address] Assistant Hvac Mechanic: Joe Hess MD Abs.Neutrophil (Seg) 2.46 k/uL Normal 1.50-8.10 [facility] Comment on above: Performed By: #### B MP, CDP #### [address] [address] Assistant Hvac Mechanic: Joe Hess MD Basophils/100 WBC (Bld) 1 % Normal 0-2 [facility] Comment on above: Performed By: #### B MP, CDP #### [address] [address] Assistant Hvac Mechanic: Joe Hess MD Eosinophils (Bld) [#/Vol] 0.06 10*3/uL Normal 0.00-0.44 [facility] Comment on above: Performed By: #### B MP, CDP #### [address] [address] Assistant Hvac Mechanic: Joe Hess MD Eosinophils/100 WBC (Bld) 2 % Normal 1-4 [facility] Comment on above: Performed By: #### B MP, CDP #### [facility] [address] [place] [address] Assistant Hvac Mechanic: Joe Hess MD Erythrocyte distribution width (RBC) [Ratio] 11.9 % Normal 11.8-14.4 [facility] Comment on above: Performed By: #### B MP, CDP #### [facility] [address] [place] [address] Assistant Hvac Mechanic: Joe Hess MD Hematocrit (Bld) [Volume fraction] 42.4 % Normal 40.7-50.3 [facility] Comment on above: Performed By: #### B MP, CDP #### [facility] [address] [place] [address] Assistant Hvac Mechanic: Joe Hess MD Hemoglobin (Bld) [Mass/Vol] 13.9 g/dL Normal 13.0-17.0 [facility] Comment on above: Performed By: #### B MP, CDP #### [facility] [address] [place] [address] Assistant Hvac Mechanic: Joe Hess MD Immature granulocytes/100 WBC (Bld) 1 % High 0 [facility] Comment on above: Performed By: #### B MP, CDP #### [facility] [address] [place] [address] Assistant Hvac Mechanic: Joe Hess MD Lymphocytes (Bld) [#/Vol] 0.95 10*3/uL Low 1.10-3.70 [facility] Comment on above: Performed By: #### B MP, CDP #### [facility] [address] [place] [address] Assistant Hvac Mechanic: Joe Hess MD Lymphocytes/100 WBC (Bld) 24 % Normal 24-43 [facility] Comment on above: Performed By: #### B MP, CDP #### [facility] [address] [place] [address] Assistant Hvac Mechanic: Joe Hess MD MCH (RBC) [Entitic mass] 31.6 pg Normal 25.2-33.5 [facility] Comment on above: Performed By: #### B MP, CDP #### [address] [address] Assistant Hvac Mechanic: Joe Hess MD MCHC (RBC) [Mass/Vol] 32.8 g/dL Normal 28.4-34.8 [facility] Comment on above: Performed By: #### B MP, CDP #### [address] [address] Assistant Hvac Mechanic: Joe Hess MD MCV (RBC) [Entitic vol] 96.4 fL Normal 82.6-102.9 [facility] Comment on above: Performed By: #### B ALVARO, CDP #### [address] [address] Assistant Hvac Mechanic: Joe Hess MD Monocytes (Bld) [#/Vol] 0.42 10*3/uL Normal 0.10-1.20 [facility] Comment on above: Performed By: #### B MP, CDP #### [address] [address] Assistant Hvac Mechanic: Joe Hess MD Monocytes/100 WBC (Bld) 11 % Normal 3-12 [facility] Comment on above: Performed By: #### B MP, CDP #### [address] [address] Assistant Hvac Mechanic: Joe Hess MD Neutrophil (Seg) 62 % Normal 36-65 [facility] Comment on above: Performed By: #### B MP, CDP #### [address] [address] Assistant Hvac Mechanic: Joe Hess MD NRBC Automated 0.0 per 100 WBC Normal 0.0 [facility] Comment on above: Performed By: #### B MP, CDP #### [facility] [place] [address] Assistant Hvac Mechanic: oJe Hess MD Platelet mean volume (Bld) [Entitic vol] 8.9 fL Normal 8.1-13.5 [facility] Comment on above: Performed By: #### B MP, CDP #### [facility] [address] [place] [address] Assistant Hvac Mechanic: Joe Hess MD Platelets (Bld) [#/Vol] 189 10*3/uL Normal 138-453 [facility] Comment on above: Performed By: #### B ALVARO, CDP #### [facility] [address] [place] [address] Assistant Hvac Mechanic: Joe Hess MD RBC (Bld) [#/Vol] 4.40 10*6/uL Normal 4.21-5.77 [facility] Comment on above: Performed By: #### B ALVARO, CDP #### [facility] [address] [place] [address] Assistant Hvac Mechanic: Joe Hess MD WBC (Bld) [#/Vol] 3.9 10*3/uL Normal 3.5-11.3 [facility] Comment on above: Performed By: #### B ALVARO, CDP #### [address] [address] Assistant Hvac Mechanic: Joe Hess MD FLUORO FOR SURGICAL PROCEDUR ESon 10-06-2022 FLUORO FOR SURGICAL PROCEDURES Radiology exam is complete. No Radiologist dictation. Please follow up with ordering provider. Final result Normal [facility] Radiology exam is complete. No Radiologist dictation. Please follow up with ordering provider. [facility] RIS CONSOLIDATED Lactate, Sepsison 10-06-2022 Lactic Acid, Sepsis, Whole Blood 1.4 mmol/L 0.5 - 1.9 mmol/L [facility] Lactic Acid,Sep Wbld 1.4 mmol/L Normal 0.5-1.9 [facility] Comment on above: Performed By: #### U LAURA Hedrick #### [facility] [address] [place] [address] Assistant Hvac Mechanic: Joe Hess MD XR WRIST LEFT (MIN 3 VIEWS)o n 10-06-2022 XR WRIST LEFT (MIN 3 VIEWS) EXAMINATION: 3 XRAY VIEWS OF THE LEFT WRIST 10/06/2022 4:52 pm COMPARISON: None. HISTORY: ORDERING SYSTEM PROVIDED HISTORY: post op TECHNOLOGIST PROVIDED HISTORY: post op Reason for Exam: post op. FINDINGS: Improved alignment distal radial fracture status post ORIF and plaster splint. IMPRESSION: Status post ORIF distal radial fracture Interpreted by: Chris Rm MD Signed by: Chris Rm MD 10/06/22 Final result Normal [facility] Status post ORIF distal radial fracture [facility] RIS CONSOLIDATED EXAMINATION: 3 XRAY VIEWS OF THE LEFT WRIST 10/06/2022 4:52 pm COMPARISON: None. HISTORY: ORDERING SYSTEM PROVIDED HISTORY: post op TECHNOLOGIST PROVIDED HISTORY: post op Reason for Exam: post op. FINDINGS: Improved alignment distal radial fracture status post ORIF and plaster splint. [facility] RIS CONSOLIDATED Chris Rm MD - 10/06/2022 EXAMINATION: 3 XRAY VIEWS OF THE LEFT WRIST 10/06/2022 4:52 pm COMPARISON: None. HISTORY: ORDERING SYSTEM PROVIDED HISTORY: post op TECHNOLOGIST PROVIDED HISTORY: post op Reason for Exam: post op. FINDINGS: Improved alignment distal radial fracture status post ORIF and plaster splint. IMPRESSION: Status post ORIF distal radial fracture [facility] [employer] [facility] Radiology Study observation (narrative) [facility] [employer] Basic Metabolic Panelon 09-20 Anion gap [Moles/Vol] 10 mmol/L 9 - 17 mmol/L [facility] [employer] Calcium [Mass/Vol] 8.6 mg/dL 8.6 - 10. 4 mg/dL [facility] Chloride [Moles/Vol] 104 mmol/L 98 - 107 mmol/L [facility] CO2 [Moles/Vol] 25 mmol/L 20 - 31 mmol/L [facility] Creatinine [Mass/Vol] 0.8 mg/dL 0.7 - 1.2 mg/d L [facility] Comment on above: ICTERIC SPECIMEN GFR/1.73 sq M.predicted MDRD (S/P/Bld) [Vol rate/Area] - PINF [facility] Comment on above: These results are not intended for use in patients <18 years of age. eGFR results are calculated without a race factor using the 202 CKD-EPI equation. Careful clinical correlation is recommended, particularly when comparing to results calculated using previous equations. The CKD-EPI equation is less accurate in patients with extremes of muscle mass, extra-renal metabolism of creatine, excessive creatine ingestion, or following therapy that affects renal tubular secretion. Glucose [Mass/Vol] 103 mg/dL High 70 - 99 mg/dL [facility] Interpretation and review of laboratory results Abnormal [facility] Potassium [Moles/Vol] 4.0 mmol/L 3.7 - 5.3 mmol/L [facility] Sodium [Moles/Vol] 139 mmol/L 135 - 144 mmol/L [facility] Urea nitrogen [Mass/Vol] 10 mg/dL 6 - 20 mg/dL [facility] Basic Metabolic Profon 10-05 Creatinine [Mass/Vol] 0.8 mg/dL Normal 0.7-1.2 [facility] Comment on above: Result Comment: ICTE [place] SPECIMEN Performed By: #### B MP, CDP #### [facility] [place] [address] Assistant Hvac Mechanic: Joe Hess MD GFR/1.73 sq M.predicted among non-blacks MDRD (S/P/Bld) [Vol rate/Area] mL/min/{1.73_m2} Normal >60 [facility] Comment on above: Result Comment: These results are not intended for use in patients <18 years of age. eGFR results are calculated without a race factor using the 2020 CKD-EPI equation. Careful clinical correlation is recommended, particularly when comparing to results calculated using previous equations. The CKD-EPI equation is less accurate in patients with extremes of muscle mass, extra-renal metabolism of creatine, excessive creatine ingestion, or following therapy that affects renal tubular secretion. Performed By: #### B ALVARO, CDP #### [address] [address] Assistant Hvac Mechanic: Joe Hess MD Anion gap [Moles/Vol] 10 mmol/L Normal 9-17 [facility] Comment on above: Performed By: #### B ALVARO, CDP #### [address] [address] Assistant Hvac Mechanic: Joe Hess MD Calcium [Mass/Vol] 8.6 mg/dL Normal 8.6-10.4 [facility] Comment on above: Performed By: #### B ALVARO, CDP #### [address] [address] Assistant Hvac Mechanic: Joe Hess MD Chloride [Moles/Vol] 104 mmol/L Normal 98-107 [facility] Comment on above: Performed By: #### B ALVARO, CDP #### [address] [address] Assistant Hvac Mechanic: Joe Hess MD CO2 [Moles/Vol] 25 mmol/L Normal 20-31 [facility] Comment on above: Performed By: #### B ALVARO, CDP #### [address] [address] Assistant Hvac Mechanic: Joe Hess MD Glucose [Mass/Vol] 103 mg/dL High 70-99 [facility] Comment on above: Performed By: #### B ALVARO, CDP #### [address] [address] Assistant Hvac Mechanic: Joe Hess MD Potassium [Moles/Vol] 4.0 mmol/L Normal 3.7-5.3 [facility] Comment on above: Performed By: #### B MP, CDP #### [facility] [address] [place] [address] Assistant Hvac Mechanic: Joe Hess MD Sodium [Moles/Vol] 139 mmol/L Normal 135-144 [facility] Comment on above: Performed By: #### B ALVARO, CDP #### [facility] [address] [place], [place] [id number] Assistant Hvac Mechanic: Joe Hess MD Urea nitrogen [Mass/Vol] 10 mg/dL Normal 6-20 [facility] Comment on above: Performed By: #### B ALVARO, CDP #### [facility] [address] [place], [place] [phone] Assistant Hvac Mechanic: Joe Hess MD CBC with Auto Differentialon 10-05-2022 Basophils (Bld) [#/Vol] [facility] Basophils/100 WBC (Bld) 0 % 0 - 2 % [facility] Eosinophils (Bld) [#/Vol] 0.04 10*3/uL [facility] Eosinophils/100 WBC (Bld) 1 % 1 - 4 % [facility] Erythrocyte distribution width (RBC) [Ratio] 11.4 % Low 11.8 - 14.4 % [facility] Hematocrit (Bld) [Volume fraction] 38.3 % Low 40.7 - 50.3 % [facility] Hemoglobin (Bld) [Mass/Vol] 13.5 g/dL 13.0 - 17.0 g/dL [facility] Immature granulocytes (Bld) [#/Vol] 0.03 10*3/uL [facility] Immature granulocytes/100 WBC (Bld) 1 % High 0 [facility] Interpretation and review of laboratory results Abnormal [facility] Lymphocytes/100 WBC (Bld) 23 % Low 24 - 43 % [facility] Lymphocytes/100 WBC (Bld) 1.18 % [facility] MCH (RBC) [Entitic mass] 31.9 pg 25.2 - 33.5 pg [facility] MCHC (RBC) [Mass/Vol] 35.2 g/dL High 28.4 - 34.8 g/dL [facility] MCV (RBC) [Entitic vol] 90.5 fL 82.6 - 102.9 fL [facility] Monocytes/100 WBC (Bld) 9 % 3 - 12 % [facility] Monocytes/100 WBC (Bld) 0.45 % [facility] Neutrophils/100 WBC (Bld) 66 % High 36 - 65 % [facility] Nucleated RBC/100 WBC (Bld) [Ratio] 0.0 % 0.0 per 100 WBC [facility] Platelet mean volume (Bld) [Entitic vol] 10.2 fL 8.1 - 13.5 fL [facility] Platelets (Bld) [#/Vol] 142 10*3/uL [facility] RBC (Bld) [#/Vol] 4.23 10*6/uL 4.21 - 5.7 7 m/uL [facility] [employer] Segmented neutrophils/100 WBC (Bld) 3.39 % [facility] WBC other (Bld) [#/Vol] 5.1 [facility] CBC with Diffon 10-05-2022 Abs. Basophil <0.03 Normal 0.00-0.20 [facility] Comment on above: Performed By: #### B ALVARO, CDP #### [employer] [address] [place] [address] Assistant Hvac Mechanic: Joe Hess MD Abs.Imm.Granulocyte 0.03 k/uL Normal 0.00-0.30 [facility] Comment on above: Performed By: #### B ALVARO, CDP #### [employer] [address] [place] [address] Assistant Hvac Mechanic: Joe Hess MD Abs.Neutrophil (Seg) 3.39 k/uL Normal 1.50-8.10 [facility] Comment on above: Performed By: #### B ALVARO, CDP #### [facility] [address] [place] [address] Assistant Hvac Mechanic: Joe Hess MD Basophils/100 WBC (Bld) 0 % Normal 0-2 [facility] Comment on above: Performed By: #### B ALVARO, CDP #### [address] [address] Assistant Hvac Mechanic: Joe Hess MD Eosinophils (Bld) [#/Vol] 0.04 10*3/uL Normal 0.00-0.44 [facility] Comment on above: Performed By: #### B ALVARO, CDP #### [address] [address] Assistant Hvac Mechanic: Joe Hess MD Eosinophils/100 WBC (Bld) 1 % Normal 1-4 [facility] Comment on above: Performed By: #### B ALVARO, CDP #### [address] [address] Assistant Hvac Mechanic: Joe Hess MD Erythrocyte distribution width (RBC) [Ratio] 11.4 % Low 11.8-14.4 [facility] Comment on above: Performed By: #### B ALVARO, CDP #### [address] [address] Assistant Hvac Mechanic: Joe Hess MD Hematocrit (Bld) [Volume fraction] 38.3 % Low 40.7-50.3 [facility] Comment on above: Performed By: #### B ALVARO, CDP #### [address] [address] Assistant Hvac Mechanic: Joe Hess MD Hemoglobin (Bld) [Mass/Vol] 13.5 g/dL Normal 13.0-17.0 [facility] Comment on above: Performed By: #### B MP, CDP #### [address] [address] Assistant Hvac Mechanic: Joe Hess MD Immature granulocytes/100 WBC (Bld) 1 % High 0 [facility] Comment on above: Performed By: #### B MP, CDP #### [place] [address] Assistant Hvac Mechanic: Joe Hess MD Lymphocytes (Bld) [#/Vol] 1.18 10*3/uL Normal 1.10-3.70 [facility] Comment on above: Performed By: #### B MP, CDP #### [place] [address] Assistant Hvac Mechanic: Joe Hess MD Lymphocytes/100 WBC (Bld) 23 % Low 24-43 [facility] Comment on above: Performed By: #### B ALVARO, CDP #### [place] [address] Assistant Hvac Mechanic: Joe Hess MD MCH (RBC) [Entitic mass] 31.9 pg Normal 25.2-33.5 [facility] Comment on above: Performed By: #### B ALVARO, CDP #### [place] [address] Assistant Hvac Mechanic: Joe Hess MD MCHC (RBC) [Mass/Vol] 35.2 g/dL High 28.4-34.8 [facility] Comment on above: Performed By: #### B ALVARO, CDP #### [place] [address] Assistant Hvac Mechanic: Joe Hess MD MCV (RBC) [Entitic vol] 90.5 fL Normal 82.6-102.9 [facility] Comment on above: Performed By: #### B MP, CDP #### [address] [address] Assistant Hvac Mechanic: Joe Hess MD Monocytes (Bld) [#/Vol] 0.45 10*3/uL Normal 0.10-1.20 [facility] Comment on above: Performed By: #### B MP, CDP #### [facility] [address] [place] [address] Assistant Hvac Mechanic: Joe Hess MD Monocytes/100 WBC (Bld) 9 % Normal 3-12 [facility] Comment on above: Performed By: #### B MP, CDP #### [facility] [address] [place] [address] Assistant Hvac Mechanic: Joe Hess MD Neutrophil (Seg) 66 % High 36-65 [facility] Comment on above: Performed By: #### B MP, CDP #### [address] [address] Assistant Hvac Mechanic: Joe Hess MD NRBC Automated 0.0 per 100 WBC Normal 0.0 [facility] Comment on above: Performed By: #### B MP, CDP #### [address] [address] Assistant Hvac Mechanic: Joe Hess MD Platelet mean volume (Bld) [Entitic vol] 10.2 fL Normal 8.1-13.5 [facility] Comment on above: Performed By: #### B MP, CDP #### [address] [address] Assistant Hvac Mechanic: Joe Hess MD Platelets (Bld) [#/Vol] 142 10*3/uL Normal 138-453 [facility] Comment on above: Performed By: #### B MP, CDP #### [facility] [address] [place] [address] Assistant Hvac Mechanic: Joe Hess MD RBC (Bld) [#/Vol] 4.23 10*6/uL Normal 4.21-5.77 [facility] Comment on above: Performed By: #### B MP, CDP #### [address] [address] Assistant Hvac Mechanic: Joe Hess MD WBC (Bld) [#/Vol] 5.1 10*3/uL Normal 3.5-11.3 [facility] Comment on above: Performed By: #### B MP, CDP #### [facility] [address] [phone] Assistant Hvac Mechanic: oJe Hess MD POC Glucose Fingerstickon Glucose [Mass/Vol] 101 mg/dL 75 - 110 mg/dL [facility] [employer] Basic Metabolic Panelon 09-20 Anion gap [Moles/Vol] 10 mmol/L 9 - 17 mmol/L [facility] [employer] Calcium [Mass/Vol] 8.6 mg/dL 8.6 - 10. 4 mg/dL [facility] [employer] Chloride [Moles/Vol] 105 mmol/L 98 - 107 mmol/L [facility] [employer] CO2 [Moles/Vol] 24 mmol/L 20 - 31 mmol/L [facility] Creatinine [Mass/Vol] 0.8 mg/dL 0.7 - 1.2 mg/d L [facility] [employer] [facility] Comment on above: ICTERIC SPECIMEN GFR/1.73 sq M.predicted MDRD (S/P/Bld) [Vol rate/Area] - [facility]PITAL[facility] Comment on above: These results are not intended for use in patients <18 years of age. eGFR results are calculated without a race factor using the 2020 CKD-EPI equation. Careful clinical correlation is recommended, particularly when comparing to results calculated using previous equations. The CKD-EPI equation is less accurate in patients with extremes of muscle mass, extra-renal metabolism of creatine, excessive creatine ingestion, or following therapy that affects renal tubular secretion. Glucose [Mass/Vol] 87 mg/dL 70 - 99 mg/dL [facility] Potassium [Moles/Vol] 4.2 mmol/L 3.7 - 5.3 mmol/L [facility] [employer] Sodium [Moles/Vol] 139 mmol/L 135 - 144 mmol/L [facility] Urea nitrogen [Mass/Vol] 13 mg/dL 6 - 20 mg/dL [facility] [employer] [facility] Basic Metabolic Profon 10-04 Creatinine [Mass/Vol] 0.8 mg/dL Normal 0.7-1.2 [facility] Comment on above: Result Comment: ICTE [place] SPECIMEN Performed By: #### T YS #### [facility] [address] [place] [address] Assistant Hvac Mechanic: Joe Hess MD GFR/1.73 sq M.predicted among non-blacks MDRD (S/P/Bld) [Vol rate/Area] mL/min/{1.73_m2} Normal >60 [facility] Comment on above: Result Comment: These results are not intended for use in patients <18 years of age. eGFR results are calculated without a race factor using the 2020 CKD-EPI equation. Careful clinical correlation is recommended, particularly when comparing to results calculated using previous equations. The CKD-EPI equation is less accurate in patients with extremes of muscle mass, extra-renal metabolism of creatine, excessive creatine ingestion, or following therapy that affects renal tubular secretion. Performed By: #### T YS #### [employer] [address] [place] [address] Assistant Hvac Mechanic: Joe Hess MD Anion gap [Moles/Vol] 10 mmol/L Normal 9-17 [facility] Comment on above: Performed By: #### T YS #### [facility] [address] [place] [address] Assistant Hvac Mechanic: Joe Hess MD Calcium [Mass/Vol] 8.6 mg/dL Normal 8.6-10.4 [facility] Comment on above: Performed By: #### T YS #### [facility] [address] [place] [address] Assistant Hvac Mechanic: Joe Hess MD Chloride [Moles/Vol] 105 mmol/L Normal 98-107 [facility] Comment on above: Performed By: #### T YS #### [facility] [address] [place] [address] Assistant Hvac Mechanic: Joe Hess MD CO2 [Moles/Vol] 24 mmol/L Normal 20-31 [facility] Comment on above: Performed By: #### T YS #### [facility] [employer] [address] [place] [address] Assistant Hvac Mechanic: Joe Hess MD Glucose [Mass/Vol] 87 mg/dL Normal 70-99 [facility] Comment on above: Performed By: #### T YS #### [address] [address] Assistant Hvac Mechanic: Joe Hess MD Potassium [Moles/Vol] 4.2 mmol/L Normal 3.7-5.3 [facility] Comment on above: Performed By: #### T YS #### [address] [address] Assistant Hvac Mechanic: Joe Hess MD Sodium [Moles/Vol] 139 mmol/L Normal 135-144 [facility] Comment on above: Performed By: #### T YS #### [address] [address] Assistant Hvac Mechanic: Joe Hess MD Urea nitrogen [Mass/Vol] 13 mg/dL Normal 6-20 [facility] Comment on above: Performed By: #### T YS #### [address] [address] Assistant Hvac Mechanic: Joe Hess MD CBC with Auto Differentialon 10-04-2022 Basophils (Bld) [#/Vol] [facility] SEC[facility] [employer] Basophils/100 WBC (Bld) 0 % 0 - 2 % [facility] Eosinophils (Bld) [#/Vol] 0.03 10*3/uL [facility] [employer] Eosinophils/100 WBC (Bld) 1 % 1 - 4 % [facility] Erythrocyte distribution width (RBC) [Ratio] 11.5 % Low 11.8 - 14.4 % [facility] SECPubliAt[facility]ATION[facility] Interactive Hematocrit (Bld) [Volume fraction] 39.8 % Low 40.7 - 50.3 % [facility] Hemoglobin (Bld) [Mass/Vol] 13.7 g/dL 13.0 - 17.0 g/dL [facility] Immature granulocytes (Bld) [#/Vol] [facility] Immature granulocytes/100 WBC (Bld) 0 % 0 [facility] Interpretation and review of laboratory results Abnormal [facility] Lymphocytes/100 WBC (Bld) 21 % Low 24 - 43 % [facility] Lymphocytes/100 WBC (Bld) 1.13 % [facility] MCH (RBC) [Entitic mass] 31.6 pg 25.2 - 33.5 pg [facility] MCHC (RBC) [Mass/Vol] 34.4 g/dL 28.4 - 34.8 g/dL [facility] MCV (RBC) [Entitic vol] 91.7 fL 82.6 - 102.9 fL [facility] Monocytes/100 WBC (Bld) 9 % 3 - 12 % [facility] Monocytes/100 WBC (Bld) 0.50 % [facility] Neutrophils/100 WBC (Bld) 68 % High 36 - 65 % [facility] Nucleated RBC/100 WBC (Bld) [Ratio] 0.0 % 0.0 per 100 WBC [facility] Platelet, Fluorescence 156 [facility] Platelets (Bld) [#/Vol] See Reflexed IPF Result [facility] Platelets reticulated/100 platelets Auto (Bld) 1.5 % 1.1 - 10.3 % [facility] RBC (Bld) [#/Vol] 4.34 10*6/uL 4.21 - 5.7 7 m/uL [facility] Segmented neutrophils/100 WBC (Bld) 3.61 % [facility] WBC other (Bld) [#/Vol] 5.3 [facility] CBC with Diffon 10-04-2022 Platelet, Fluoresc. 156 k/uL Normal 138-453 [facility] Comment on above: Performed By: #### T YS #### [address] [address] Assistant Hvac Mechanic: Joe Hess MD PLT, Immature Fract. 1.5 % Normal 1.1-10.3 [facility] Comment on above: Performed By: #### T YS #### [address] [address] Assistant Hvac Mechanic: Joe Hess MD Abs. Basophil <0.03 Normal 0.00-0.20 [facility] Comment on above: Performed By: #### T YS #### [address] [address] Assistant Hvac Mechanic: Joe Hess MD Abs.Imm.Granulocyte <0.03 Normal 0.00-0.30 [facility] Comment on above: Performed By: #### T YS #### [place] [address] Assistant Hvac Mechanic: Joe Hess MD Abs.Neutrophil (Seg) 3.61 k/uL Normal 1.50-8.10 [facility] Comment on above: Performed By: #### T YS #### [address] [address] Assistant Hvac Mechanic: Joe Hess MD Basophils/100 WBC (Bld) 0 % Normal 0-2 [facility] Comment on above: Performed By: #### T YS #### [place] [address] Assistant Hvac Mechanic: Joe Hess MD Eosinophils (Bld) [#/Vol] 0.03 10*3/uL Normal 0.00-0.44 [facility] Comment on above: Performed By: #### T YS #### [address] [address] Assistant Hvac Mechanic: Joe Hess MD Eosinophils/100 WBC (Bld) 1 % Normal 1-4 [facility] Comment on above: Performed By: #### T YS #### [address] [address] Assistant Hvac Mechanic: Joe Hess MD Erythrocyte distribution width (RBC) [Ratio] 11.5 % Low 11.8-14.4 [facility] Comment on above: Performed By: #### T YS #### [address] [address] Assistant Hvac Mechanic: Joe Hess MD Hematocrit (Bld) [Volume fraction] 39.8 % Low 40.7-50.3 [facility] Comment on above: Performed By: #### T YS #### [address] [address] Assistant Hvac Mechanic: Joe Hess MD Hemoglobin (Bld) [Mass/Vol] 13.7 g/dL Normal 13.0-17.0 [facility] Comment on above: Performed By: #### T YS #### [address] [address] Assistant Hvac Mechanic: Joe Hess MD Immature granulocytes/100 WBC (Bld) 0 % Normal 0 [facility] Comment on above: Performed By: #### T YS #### [address] [address] Assistant Hvac Mechanic: Joe Hess MD Lymphocytes (Bld) [#/Vol] 1.13 10*3/uL Normal 1.10-3.70 [facility] Comment on above: Performed By: #### T YS #### [address] [address] Assistant Hvac Mechanic: Joe Hess MD Lymphocytes/100 WBC (Bld) 21 % Low 24-43 [facility] Comment on above: Performed By: #### T YS #### [address] [address] Assistant Hvac Mechanic: Joe Hess MD MCH (RBC) [Entitic mass] 31.6 pg Normal 25.2-33.5 [facility] Comment on above: Performed By: #### T YS #### [address] [address] Assistant Hvac Mechanic: Joe Hess MD MCHC (RBC) [Mass/Vol] 34.4 g/dL Normal 28.4-34.8 [facility] Comment on above: Performed By: #### T YS #### [address] [address] Assistant Hvac Mechanic: Joe Hess MD MCV (RBC) [Entitic vol] 91.7 fL Normal 82.6-102.9 [facility] Comment on above: Performed By: #### T YS #### [address] [address] Assistant Hvac Mechanic: Joe Hess MD Monocytes (Bld) [#/Vol] 0.50 10*3/uL Normal 0.10-1.20 [facility] Comment on above: Performed By: #### T YS #### [address] [address] Assistant Hvac Mechanic: Joe Hess MD Monocytes/100 WBC (Bld) 9 % Normal 3-12 [facility] Comment on above: Performed By: #### T YS #### [address] [address] Assistant Hvac Mechanic: Joe Hess MD Neutrophil (Seg) 68 % High 36-65 [facility] Comment on above: Performed By: #### T YS #### [address] [address] Assistant Hvac Mechanic: Joe Hess MD NRBC Automated 0.0 per 100 WBC Normal 0.0 [facility] Comment on above: Performed By: #### T YS #### [facility] [address] [place] [address] Assistant Hvac Mechanic: Joe Hess MD Platelet Count See Reflexed IPF Result Normal 138-453 [facility] Comment on above: Performed By: #### T YS #### [facility] [address] [place] [address] Assistant Hvac Mechanic: Joe Hess MD RBC (Bld) [#/Vol] 4.34 10*6/uL Normal 4.21-5.77 [facility] Comment on above: Performed By: #### T YS #### [facility] [place] [address] Assistant Hvac Mechanic: Joe Hess MD WBC (Bld) [#/Vol] 5.3 10*3/uL Normal 3.5-11.3 [facility] Comment on above: Performed By: #### T YS #### [facility] [address] [place] [address] Assistant Hvac Mechanic: Joe Hess MD EKG 12 LeadOrdered By: Naif Nunes on 10-04-2022 Atrial Rate 55 BPM [employer] Phone: P Fenton 61 degrees [employer] Phone: P-R Interval 154 ms [employer] Phone: Q-T Interval 414 ms [employer] Phone: QRS Duration 82 ms [employer] Phone: QTc Calculation (Bazett) 396 ms [employer] Phone: R Fenton 20 degrees [employer] Phone: T Fenton 15 degrees [employer] Phone: Ventricular Rate 55 BPM [facility] [employer] Phone: [facility] [employer] Work Phone: EKG 12 Leadon 10-04-2022 Sinus bradycardia Otherwise normal ECG No previous ECGs available [facility] Naif Lozada MD - 10/04/2022 Sinus bradycardia Otherwise normal ECG No previous ECGs available [facility] Magnesiumon 10-04-2022 Magnesium [Mass/Vol] 2.0 mg/dL 1.6 - 2.6 mg/dL [facility] Magnesium [Mass/Vol] 2.0 mg/dL Normal 1.6-2.6 [facility] Comment on above: Performed By: #### T YS #### [employer] [facility] [place] [address] Assistant Hvac Mechanic: Joe Hess MD Microscopic Urinalysison Epithelial cells LM.HPF (Urine sed) [#/Area] None [facility] RBC LM.HPF (Urine sed) [#/Area] 2 TO 5 [facility] Comment on above: Reference range defi rupa for non-centrifuged specimen. WBC LM.HPF (Urine sed) [#/Area] None [facility] [employer] No Panel Informationon 10-04 [facility]ITAL[facility] Interactive POC Glucose Fingerstickon Glucose [Mass/Vol] 142 mg/dL High 75 - 110 mg/dL [facility] Interpretation and review of laboratory results Abnormal [facility] Glucose [Mass/Vol] 113 mg/dL High 75 - 110 mg/dL [facility] Interpretation and review of laboratory results Abnormal [facility] Glucose [Mass/Vol] 99 mg/dL 75 - 110 mg/dL [facility] Glucose [Mass/Vol] 110 mg/dL 75 - 110 mg/dL [facility] Glucose [Mass/Vol] 93 mg/dL 75 - 110 mg/dL [facility] [employer] Phosphoruson 10-04-2022 Phosphate [Mass/Vol] 3.0 mg/dL 2.5 - 4.5 mg/dL [facility] Phosphorus, Inorg.on 023 Phosphorus, Inorg. 3.0 mg/dL Normal 2.5-4.5 [facility] Comment on above: Performed By: #### T YS #### [employer] [address] [place] [phone] Assistant Hvac Mechanic: Joe Hess MD Urinalysison 10-04-2022 Bilirubin Ql (U) Negative NEGATIVE [facility] Clarity (U) Clear Clear [facility] Color (U) Yellow Yellow [facility] Glucose Test strip (U) [Mass/Vol] Negative NEGATIVE mg/dL [facility] Hemoglobin Auto test strip Ql (U) TRACE Abnormal NEGATIVE [facility] Interpretation and review of laboratory results Abnormal [facility] Ketones (U) [Mass/Vol] SMALL Abnormal NEGATIVE mg/dL [facility] Leukocyte esterase Test strip Ql (U) Negative NEGATIVE [facility] Nitrite Ql (U) Negative NEGATIVE [facility] pH (U) 8.0 [pH] 5.0 - 8.0 [facility] Protein (U) [Mass/Vol] Negative NEGATIVE mg/dL [facility] Specific gravity (U) [Rel density] 1.013 1.005 - 1.030 [facility] Urobilinogen Qn (U) Normal 0.0 - 1.0 EU/dL [facility] Urinalysis, Routineon 2022 Bilirubin, SemiQt,Ur Negative Normal NEG [facility] Comment on above: Performed By: #### LAURA Strauss #### [employer] [address] [place] [address] [id number] Assistant Hvac Mechanic: Joe Hess MD Blood, Urine TRACE Abnormal NEG [facility] Comment on above: Performed By: #### U LAURA Hedrick #### [address] [address] Assistant Hvac Mechanic: Joe Hess MD Clarity (U) Clear Normal CLEAR [facility] Comment on above: Performed By: #### U A, UMICAO #### [facility] [address] [place] [address] Assistant Hvac Mechanic: Joe Hess MD Color (U) Yellow Normal YEL [facility] Comment on above: Performed By: #### U A, UMICAO #### [facility] [address] [place] [address] Assistant Hvac Mechanic: Joe Hess MD Glucose Ql (U) Negative Normal NEG [facility] Comment on above: Performed By: #### U A, UMICAO #### [address] [address] Assistant Hvac Mechanic: Joe Hess MD Ketones Ql (U) SMALL Abnormal NEG [facility] Comment on above: Performed By: #### U A, UMICAO #### [address] [address] Assistant Hvac Mechanic: Joe Hess MD Leukocyte esterase Test strip Ql (U) Negative Normal NEG [facility] Comment on above: Performed By: #### U A, UMICAO #### [address] [address] Assistant Hvac Mechanic: Joe Hess MD Nitrite,Ur Negative Normal NEG [facility] Comment on above: Performed By: #### U A, UMICAO #### [address] [address] Assistant Hvac Mechanic: Joe Hess MD PH,Ur 8.0 Normal 5.0-8.0 [facility] Comment on above: Performed By: #### U A, UMICAO #### [facility] [address] [place] [address] Assistant Hvac Mechanic: Joe Hess MD Protein Ql (U) Negative Normal NEG [facility] Comment on above: Performed By: #### U A, UMICAO #### [facility] [employer] [address] [place] [address] Assistant Hvac Mechanic: Joe Hess MD Spec. [place],Ur 1.013 Normal 1.005-1.030 [facility] Comment on above: Performed By: #### U A, UMICAO #### [facility] [employer] [address] [place] [address] Assistant Hvac Mechanic: Joe Hess MD Urobilinogen,Ur Normal Normal 0.0-1.0 [facility] Comment on above: Performed By: #### U A, UMICAO #### [address] [address] Assistant Hvac Mechanic: Joe Hess MD Urinalysis,Microon 3 Epithelial cells LM Ql (Urine sed) None Normal 0-5 [facility] Comment on above: Performed By: #### U A, UMICAO #### [facility] [employer] [address] [place] [address] Assistant Hvac Mechanic: Joe Hess MD Urine RBC's 2 TO 5 Normal 0-4 [facility] Comment on above: Result Comment: Refe rence range defined for non-centrifuged specimen. Performed By: #### U A, UMICAO #### [facility] [address] [place] [address] Assistant Hvac Mechanic: Joe Hess MD Urine WBC's None Normal 0-5 [facility] Comment on above: Performed By: #### U A, UMICAO #### [facility] [employer] [address] [place] [address] Assistant Hvac Mechanic: Joe Hess MD Basic Metabolic Panelon 09-20 Anion gap [Moles/Vol] 12 mmol/L 9 - 17 mmol/L [facility] Calcium [Mass/Vol] 8.3 mg/dL Low 8.6 - 10. 4 mg/dL [facility] Chloride [Moles/Vol] 105 mmol/L 98 - 107 mmol/L [facility] CO2 [Moles/Vol] 21 mmol/L 20 - 31 mmol/L [facility] Creatinine [Mass/Vol] 0.8 mg/dL 0.7 - 1.2 mg/d L [facility] Comment on above: ICTERIC SPECIMEN GFR/1.73 sq M.predicted MDRD (S/P/Bld) [Vol rate/Area] - PINF [facility] Comment on above: These results are not intended for use in patients <18 years of age. eGFR results are calculated without a race factor using the 2020 CKD-EPI equation. Careful clinical correlation is recommended, particularly when comparing to results calculated using previous equations. The CKD-EPI equation is less accurate in patients with extremes of muscle mass, extra-renal metabolism of creatine, excessive creatine ingestion, or following therapy that affects renal tubular secretion. Glucose [Mass/Vol] 92 mg/dL 70 - 99 mg/dL [facility] Interpretation and review of laboratory results Abnormal [facility] Potassium [Moles/Vol] 4.0 mmol/L 3.7 - 5.3 mmol/L [facility] Sodium [Moles/Vol] 138 mmol/L 135 - 144 mmol/L [facility] Urea nitrogen [Mass/Vol] 14 mg/dL 6 - 20 mg/dL [facility] Basic Metabolic Profon 10-03 Creatinine [Mass/Vol] 0.8 mg/dL Normal 0.7-1.2 [facility] Comment on above: Result Comment: ICTE [place] SPECIMEN Performed By: #### B CUL2 #### [employer] [address] [place] [address] Assistant Hvac Mechanic: Joe Hess MD GFR/1.73 sq M.predicted among non-blacks MDRD (S/P/Bld) [Vol rate/Area] mL/min/{1.73_m2} Normal >60 [facility] Comment on above: Result Comment: These results are not intended for use in patients <18 years of age. eGFR results are calculated without a race factor using the 2020 CKD-EPI equation. Careful clinical correlation is recommended, particularly when comparing to results calculated using previous equations. The CKD-EPI equation is less accurate in patients with extremes of muscle mass, extra-renal metabolism of creatine, excessive creatine ingestion, or following therapy that affects renal tubular secretion. Performed By: #### B CUL2 #### [address] [address] Assistant Hvac Mechanic: Joe Hess MD Anion gap [Moles/Vol] 12 mmol/L Normal 9-17 [facility] Comment on above: Performed By: #### B CUL2 #### [address] [address] Assistant Hvac Mechanic: Joe Hess MD Calcium [Mass/Vol] 8.3 mg/dL Low 8.6-10.4 [facility] Comment on above: Performed By: #### B CUL2 #### [address] [address] Assistant Hvac Mechanic: Joe Hess MD Chloride [Moles/Vol] 105 mmol/L Normal 98-107 [facility] Comment on above: Performed By: #### B CUL2 #### [address] [address] Assistant Hvac Mechanic: Joe Hess MD CO2 [Moles/Vol] 21 mmol/L Normal 20-31 [facility] Comment on above: Performed By: #### B CUL2 #### [address] [address] Assistant Hvac Mechanic: Joe Hess MD Glucose [Mass/Vol] 92 mg/dL Normal 70-99 [facility] Comment on above: Performed By: #### B CUL2 #### [address] [id number] Assistant Hvac Mechanic: Joe Hess MD Potassium [Moles/Vol] 4.0 mmol/L Normal 3.7-5.3 [facility] Comment on above: Performed By: #### B CUL2 #### [facility] [address] [place], [place] [id number] Assistant Hvac Mechanic: Joe Hess MD Sodium [Moles/Vol] 138 mmol/L Normal 135-144 [facility] Comment on above: Performed By: #### B CUL2 #### [employer] [address] [place], [place] [id number] Assistant Hvac Mechanic: Joe Hess MD Urea nitrogen [Mass/Vol] 14 mg/dL Normal 6-20 [facility] Comment on above: Performed By: #### B CUL2 #### [facility] [place], [place] [id number] Assistant Hvac Mechanic: Joe Hess MD CBC with Auto Differentialon 10-03-2022 Basophils (Bld) [#/Vol] [facility] Basophils/100 WBC (Bld) 0 % 0 - 2 % [facility] Eosinophils (Bld) [#/Vol] [facility] Eosinophils/100 WBC (Bld) 0 % Low 1 - 4 % [facility] Erythrocyte distribution width (RBC) [Ratio] 11.7 % Low 11.8 - 14.4 % [facility] Hematocrit (Bld) [Volume fraction] 37.8 % Low 40.7 - 50.3 % [facility] Hemoglobin (Bld) [Mass/Vol] 12.6 g/dL Low 13.0 - 17.0 g/dL [facility] Immature granulocytes (Bld) [#/Vol] [facility] Immature granulocytes/100 WBC (Bld) 0 % 0 [facility] Interpretation and review of laboratory results Abnormal [facility] Lymphocytes/100 WBC (Bld) 16 % Low 24 - 43 % [facility] Lymphocytes/100 WBC (Bld) 0.88 % Low [facility] MCH (RBC) [Entitic mass] 31.6 pg 25.2 - 33.5 pg [facility] MCHC (RBC) [Mass/Vol] 33.3 g/dL 28.4 - 34.8 g/dL [facility] MCV (RBC) [Entitic vol] 94.7 fL 82.6 - 102.9 fL [facility] Monocytes/100 WBC (Bld) 7 % 3 - 12 % [facility] Monocytes/100 WBC (Bld) 0.38 % [facility] Neutrophils/100 WBC (Bld) 77 % High 36 - 65 % [facility] Nucleated RBC/100 WBC (Bld) [Ratio] 0.0 % 0.0 per 100 WBC [facility] Platelet mean volume (Bld) [Entitic vol] 9.6 fL 8.1 - 13.5 fL [facility] Platelets (Bld) [#/Vol] 141 10*3/uL [facility] RBC (Bld) [#/Vol] 3.99 10*6/uL Low 4.21 - 5.7 7 m/uL [facility] Segmented neutrophils/100 WBC (Bld) 4.25 % [facility] WBC other (Bld) [#/Vol] 5.6 [facility] CBC with Diffon 10-03-2022 Abs. Basophil <0.03 Normal 0.00-0.20 [facility] Comment on above: Performed By: #### B CUL2 #### [facility] [place] [id number] Assistant Hvac Mechanic: Joe Hess MD Abs. Eosinophil <0.03 Normal 0.00-0.44 [facility] Comment on above: Performed By: #### B CUL2 #### [facility] [place] [id number] Assistant Hvac Mechanic: Joe Hess MD Abs.Imm.Granulocyte <0.03 Normal 0.00-0.30 [facility] Comment on above: Performed By: #### B CUL2 #### [address] [address] Assistant Hvac Mechanic: Joe Hess MD Abs.Neutrophil (Seg) 4.25 k/uL Normal 1.50-8.10 [facility] Comment on above: Performed By: #### B CUL2 #### [address] [address] Assistant Hvac Mechanic: Joe Hess MD Basophils/100 WBC (Bld) 0 % Normal 0-2 [facility] Comment on above: Performed By: #### B CUL2 #### [address] [address] Assistant Hvac Mechanic: Joe Hess MD Eosinophils/100 WBC (Bld) 0 % Low 1-4 [facility] Comment on above: Performed By: #### B CUL2 #### [address] [address] Assistant Hvac Mechanic: Joe Hess MD Erythrocyte distribution width (RBC) [Ratio] 11.7 % Low 11.8-14.4 [facility] Comment on above: Performed By: #### B CUL2 #### [address] [address] Assistant Hvac Mechanic: Joe Hess MD Hematocrit (Bld) [Volume fraction] 37.8 % Low 40.7-50.3 [facility] Comment on above: Performed By: #### B CUL2 #### [address] [address] Assistant Hvac Mechanic: Joe Hess MD Hemoglobin (Bld) [Mass/Vol] 12.6 g/dL Low 13.0-17.0 [facility] Comment on above: Performed By: #### B CUL2 #### [address] [address] Assistant Hvac Mechanic: Joe Hess MD Immature granulocytes/100 WBC (Bld) 0 % Normal 0 [facility] Comment on above: Performed By: #### B CUL2 #### [address] [address] Assistant Hvac Mechanic: Joe Hess MD Lymphocytes (Bld) [#/Vol] 0.88 10*3/uL Low 1.10-3.70 [facility] Comment on above: Performed By: #### B CUL2 #### [place] [address] Assistant Hvac Mechanic: Joe Hess MD Lymphocytes/100 WBC (Bld) 16 % Low 24-43 [facility] Comment on above: Performed By: #### B CUL2 #### [place] [address] Assistant Hvac Mechanic: Joe Hess MD MCH (RBC) [Entitic mass] 31.6 pg Normal 25.2-33.5 [facility] Comment on above: Performed By: #### B CUL2 #### [place] [address] Assistant Hvac Mechanic: Joe Hess MD MCHC (RBC) [Mass/Vol] 33.3 g/dL Normal 28.4-34.8 [facility] Comment on above: Performed By: #### B CUL2 #### [place] [address] Assistant Hvac Mechanic: Joe Hess MD MCV (RBC) [Entitic vol] 94.7 fL Normal 82.6-102.9 [facility] Comment on above: Performed By: #### B CUL2 #### [place] [address] Assistant Hvac Mechanic: Joe Hess MD Monocytes (Bld) [#/Vol] 0.38 10*3/uL Normal 0.10-1.20 [facility] Comment on above: Performed By: #### B CUL2 #### [address] [address] Assistant Hvac Mechanic: Joe Hess MD Monocytes/100 WBC (Bld) 7 % Normal 3-12 [facility] Comment on above: Performed By: #### B CUL2 #### [address] [address] Assistant Hvac Mechanic: Joe Hess MD Neutrophil (Seg) 77 % High 36-65 [facility] Comment on above: Performed By: #### B CUL2 #### [address] [address] Assistant Hvac Mechanic: Joe Hess MD NRBC Automated 0.0 per 100 WBC Normal 0.0 [facility] Comment on above: Performed By: #### B CUL2 #### [address] [address] Assistant Hvac Mechanic: Joe Hess MD Platelet mean volume (Bld) [Entitic vol] 9.6 fL Normal 8.1-13.5 [facility] Comment on above: Performed By: #### B CUL2 #### [address] [address] Assistant Hvac Mechanic: Joe Hess MD Platelets (Bld) [#/Vol] 141 10*3/uL Normal 138-453 [facility] Comment on above: Performed By: #### B CUL2 #### [address] [address] Assistant Hvac Mechanic: Joe Hess MD RBC (Bld) [#/Vol] 3.99 10*6/uL Low 4.21-5.77 [facility] Comment on above: Performed By: #### B CUL2 #### [address] [address] Assistant Hvac Mechanic: Joe Hess MD WBC (Bld) [#/Vol] 5.6 10*3/uL Normal 3.5-11.3 [facility] Comment on above: Performed By: #### B CUL2 #### [facility] [address] [place], [place] [id number] Assistant Hvac Mechanic: Joe Hess MD Calcium, Ionicon 10-03-2022 Calcium [Moles/Vol] 1.09 mmol/L Low 1.13-1.33 [facility] Comment on above: Performed By: #### B CUL2 #### [facility] [address] [place], [place] [id number] Assistant Hvac Mechanic: Joe Hess MD Calcium, Ionizedon Calcium.ionized (Bld) [Moles/Vol] 1.09 mmol/L Low 1.13 - 1.33 mmol/L [facility] Interpretation and review of laboratory results Abnormal [facility] Magnesiumon 10-03-2022 Magnesium [Mass/Vol] 1.9 mg/dL 1.6 - 2.6 mg/dL [facility] Magnesium [Mass/Vol] 1.9 mg/dL Normal 1.6-2.6 [facility] Comment on above: Performed By: #### T YS #### [facility] [place], [place] [id number] Assistant Hvac Mechanic: Joe Hess MD No Panel Informationon 10-03 [facility] POC Glucose Fingerstickon Glucose [Mass/Vol] 107 mg/dL 75 - 110 mg/dL [facility] Glucose [Mass/Vol] 132 mg/dL High 75 - 110 mg/dL [facility] Interpretation and review of laboratory results Abnormal [facility] Glucose [Mass/Vol] 80 mg/dL 75 - 110 mg/dL [facility] Phosphoruson 10-03-2022 Interpretation and review of laboratory results Abnormal [facility] Phosphate [Mass/Vol] 1.9 mg/dL Low 2.5 - 4.5 mg/dL [facility] Phosphorus, Inorg.on 023 Phosphorus, Inorg. 1.9 mg/dL Low 2.5-4.5 [facility] Comment on above: Performed By: #### T YS #### [facility] [address] [place] [id number] Assistant Hvac Mechanic: Joe Hess MD XR CHEST PORTABLEon 10-04-19 XR CHEST PORTABLE EXAMINATION: ONE XRAY VIEW OF THE CHEST 10/03/2022 6:06 pm COMPARISON: CT chest October 01, 2022 HISTORY: ORDERING SYSTEM PROVIDED HISTORY: Preop TECHNOLOGIST PROVIDED HISTORY: Preop Reason for Exam: Upright port, pre op FINDINGS: The lungs are without acute focal process. There is no effusion or pneumothorax. The cardiomediastinal silhouette is without acute process. The osseous structures are without acute process. IMPRESSION: No acute process. Interpreted by: Chris Rm MD Signed by: Chris Rm MD 10/03/22 Final result Normal [facility] No acute process. [facility] EXAMINATION: ONE XRAY VIEW OF THE CHEST 10/03/2022 6:06 pm COMPARISON: CT chest October 01, 2022 HISTORY: ORDERING SYSTEM PROVIDED HISTORY: Preop TECHNOLOGIST PROVIDED HISTORY: Preop Reason for Exam: Upright port, pre op FINDINGS: The lungs are without acute focal process. There is no effusion or pneumothorax. The cardiomediastinal silhouette is without acute process. The osseous structures are without acute process. [facility] Chris Rm MD - 10/03/2022 EXAMINATION: ONE XRAY VIEW OF THE CHEST 10/03/2022 6:06 pm COMPARISON: CT chest October 01, 2022 HISTORY: ORDERING SYSTEM PROVIDED HISTORY: Preop TECHNOLOGIST PROVIDED HISTORY: Preop Reason for Exam: Upright port, pre op FINDINGS: The lungs are without acute focal process. There is no effusion or pneumothorax. The cardiomediastinal silhouette is without acute process. The osseous structures are without acute process. IMPRESSION: No acute process. [facility] Radiology Study observation (narrative) [facility] XR CHEST PORTABLEOrdered By: Chris Rm on 10-03-2022 [facility] Work Phone: Basic Metab w/rfx MGon 10-02 Anion gap [Moles/Vol] 10 mmol/L Normal 9-17 [facility] Comment on above: Performed By: #### U AVALENTINEO #### [facility] [address] [place] [address] Assistant Hvac Mechanic: Joe Hess MD Calcium [Mass/Vol] 7.9 mg/dL Low 8.6-10.4 [facility] Comment on above: Performed By: #### U VALENTINE HedrickO #### [facility] [address] [place] [address] Assistant Hvac Mechanic: Joe Hess MD Chloride [Moles/Vol] 105 mmol/L Normal 98-107 [facility] Comment on above: Performed By: #### U AVALENTINEO #### [facility] [address] [place] [address] Assistant Hvac Mechanic: Joe Hess MD CO2 [Moles/Vol] 23 mmol/L Normal 20-31 [facility] Comment on above: Performed By: #### U AVALENTINEO #### [facility] [address] [place] [address] Assistant Hvac Mechanic: Joe Hess MD Creatinine [Mass/Vol] 0.8 mg/dL Normal 0.7-1.2 [facility] Comment on above: Performed By: #### U A UMICAO #### [facility] [address] [place] [address] Assistant Hvac Mechanic: Joe Hess MD GFR/1.73 sq M.predicted among non-blacks MDRD (S/P/Bld) [Vol rate/Area] mL/min/{1.73_m2} Normal >60 [facility] Comment on above: Result Comment: These results are not intended for use in patients <18 years of age. eGFR results are calculated without a race factor using the 2020 CKD-EPI equation. Careful clinical correlation is recommended, particularly when comparing to results calculated using previous equations. The CKD-EPI equation is less accurate in patients with extremes of muscle mass, extra-renal metabolism of creatine, excessive creatine ingestion, or following therapy that affects renal tubular secretion. Performed By: #### U Floridalma UMICAO #### [facility] [address] [place] [address] Assistant Hvac Mechanic: Joe Hess MD Glucose [Mass/Vol] 108 mg/dL High 70-99 [facility] Comment on above: Performed By: #### U Floridalma UMICAO #### [address] [address] Assistant Hvac Mechanic: Joe Hess MD Potassium [Moles/Vol] 4.0 mmol/L Normal 3.7-5.3 [facility] Comment on above: Performed By: #### U Floridalma UMICAO #### [address] [address] Assistant Hvac Mechanic: Joe Hess MD Sodium [Moles/Vol] 138 mmol/L Normal 135-144 [facility] Comment on above: Performed By: #### U Floridalma UMICAO #### [address] [address] Assistant Hvac Mechanic: Joe Hess MD Urea nitrogen [Mass/Vol] 19 mg/dL Normal 6-20 [facility] Comment on above: Performed By: #### U A, UMICAO #### [address] [address] Assistant Hvac Mechanic: Joe Hess MD Basic Metabolic Panel w/ Ref da to MGon 10-02-2022 Anion gap [Moles/Vol] 10 mmol/L 9 - 17 mmol/L [facility] Calcium [Mass/Vol] 7.9 mg/dL Low 8.6 - 10. 4 mg/dL [facility] Chloride [Moles/Vol] 105 mmol/L 98 - 107 mmol/L [facility] CO2 [Moles/Vol] 23 mmol/L 20 - 31 mmol/L [facility] Creatinine [Mass/Vol] 0.8 mg/dL 0.7 - 1.2 mg/d L [facility] GFR/1.73 sq M.predicted MDRD (S/P/Bld) [Vol rate/Area] - PINF [facility] Comment on above: These results are not intended for use in patients <18 years of age. eGFR results are calculated without a race factor using the 2020 CKD-EPI equation. Careful clinical correlation is recommended, particularly when comparing to results calculated using previous equations. The CKD-EPI equation is less accurate in patients with extremes of muscle mass, extra-renal metabolism of creatine, excessive creatine ingestion, or following therapy that affects renal tubular secretion. Glucose [Mass/Vol] 108 mg/dL High 70 - 99 mg/dL [facility] Interpretation and review of laboratory results Abnormal [facility] Potassium [Moles/Vol] 4.0 mmol/L 3.7 - 5.3 mmol/L [facility] Sodium [Moles/Vol] 138 mmol/L 135 - 144 mmol/L [facility] Urea nitrogen [Mass/Vol] 19 mg/dL 6 - 20 mg/dL [facility] CBC with Auto Differentialon 10-02-2022 Basophils (Bld) [#/Vol] [facility] Basophils/100 WBC (Bld) 0 % 0 - 2 % [facility] Eosinophils (Bld) [#/Vol] [facility] Eosinophils/100 WBC (Bld) 0 % Low 1 - 4 % [facility] Erythrocyte distribution width (RBC) [Ratio] 12.0 % 11.8 - 14.4 % [facility] Hematocrit (Bld) [Volume fraction] 40.2 % Low 40.7 - 50.3 % [facility] Hemoglobin (Bld) [Mass/Vol] 13.3 g/dL 13.0 - 17.0 g/dL [facility] Immature granulocytes (Bld) [#/Vol] [facility] Immature granulocytes/100 WBC (Bld) 0 % 0 [facility] Interpretation and review of laboratory results Abnormal [facility] Lymphocytes/100 WBC (Bld) 12 % Low 24 - 43 % [facility] Lymphocytes/100 WBC (Bld) 0.85 % Low [facility] MCH (RBC) [Entitic mass] 31.4 pg 25.2 - 33.5 pg [facility] MCHC (RBC) [Mass/Vol] 33.1 g/dL 28.4 - 34.8 g/dL [facility] MCV (RBC) [Entitic vol] 94.8 fL 82.6 - 102.9 fL [facility] Monocytes/100 WBC (Bld) 7 % 3 - 12 % [facility] Monocytes/100 WBC (Bld) 0.53 % [facility] Neutrophils/100 WBC (Bld) 81 % High 36 - 65 % [facility] Nucleated RBC/100 WBC (Bld) [Ratio] 0.0 % 0.0 per 100 WBC [facility] Platelet mean volume (Bld) [Entitic vol] 9.6 fL 8.1 - 13.5 fL [facility] Platelets (Bld) [#/Vol] 139 10*3/uL [facility] RBC (Bld) [#/Vol] 4.24 10*6/uL 4.21 - 5.7 7 m/uL [facility] Segmented neutrophils/100 WBC (Bld) 5.97 % [facility] WBC other (Bld) [#/Vol] 7.4 [facility] CBC with Diffon 10-02-2022 Abs. Basophil <0.03 Normal 0.00-0.20 [facility] Comment on above: Performed By: #### P HO, VD25, BMPX, IOCAL, CDP, MG #### [facility] [place] [address] Assistant Hvac Mechanic: Joe Hess MD Abs. Eosinophil <0.03 Normal 0.00-0.44 [facility] Comment on above: Performed By: #### P HO, VD25, BMPX, IOCAL, CDP, MG #### [place] [address] Assistant Hvac Mechanic: Joe Hess MD Abs.Imm.Granulocyte <0.03 Normal 0.00-0.30 [facility] Comment on above: Performed By: #### P HO, VD25, BMPX, IOCAL, CDP, MG #### [place] [address] Assistant Hvac Mechanic: Joe Hess MD Abs.Neutrophil (Seg) 5.97 k/uL Normal 1.50-8.10 [facility] Comment on above: Performed By: #### P HO, VD25, BMPX, IOCAL, CDP, MG #### [place] [address] Assistant Hvac Mechanic: Joe Hess MD Basophils/100 WBC (Bld) 0 % Normal 0-2 [facility] Comment on above: Performed By: #### P HO, VD25, BMPX, IOCAL, CDP, MG #### [place] [address] Assistant Hvac Mechanic: Joe Hess MD Eosinophils/100 WBC (Bld) 0 % Low 1-4 [facility] Comment on above: Performed By: #### P HO, VD25, BMPX, IOCAL, CDP, MG #### [place] [address] Assistant Hvac Mechanic: Joe Hess MD Erythrocyte distribution width (RBC) [Ratio] 12.0 % Normal 11.8-14.4 [facility] Comment on above: Performed By: #### P HO, VD25, BMPX, IOCAL, CDP, MG #### [address] [address] Assistant Hvac Mechanic: Joe Hess MD Hematocrit (Bld) [Volume fraction] 40.2 % Low 40.7-50.3 [facility] Comment on above: Performed By: #### P HO, VD25, BMPX, IOCAL, CDP, MG #### [address] [address] Assistant Hvac Mechanic: Joe Hess MD Hemoglobin (Bld) [Mass/Vol] 13.3 g/dL Normal 13.0-17.0 [facility] Comment on above: Performed By: #### P HO, VD25, BMPX, IOCAL, CDP, MG #### [address] [address] Assistant Hvac Mechanic: Joe Hess MD Immature granulocytes/100 WBC (Bld) 0 % Normal 0 [facility] Comment on above: Performed By: #### P HO, VD25, BMPX, IOCAL, CDP, MG #### [address] [address] Assistant Hvac Mechanic: Joe Hess MD Lymphocytes (Bld) [#/Vol] 0.85 10*3/uL Low 1.10-3.70 [facility] Comment on above: Performed By: #### P HO, VD25, BMPX, IOCAL, CDP, MG #### [address] [address] Assistant Hvac Mechanic: Joe Hess MD Lymphocytes/100 WBC (Bld) 12 % Low 24-43 [facility] Comment on above: Performed By: #### P HO, VD25, BMPX, IOCAL, CDP, MG #### [address] [address] Assistant Hvac Mechanic: Joe Hess MD MCH (RBC) [Entitic mass] 31.4 pg Normal 25.2-33.5 [facility] Comment on above: Performed By: #### P HO, VD25, BMPX, IOCAL, CDP, MG #### [address] [address] Assistant Hvac Mechanic: Joe Hess MD MCHC (RBC) [Mass/Vol] 33.1 g/dL Normal 28.4-34.8 [facility] Comment on above: Performed By: #### P HO, VD25, BMPX, IOCAL, CDP, MG #### [address] [address] Assistant Hvac Mechanic: Joe Hess MD MCV (RBC) [Entitic vol] 94.8 fL Normal 82.6-102.9 [facility] Comment on above: Performed By: #### P HO, VD25, BMPX, IOCAL, CDP, MG #### [address] [address] Assistant Hvac Mechanic: Joe Hess MD Monocytes (Bld) [#/Vol] 0.53 10*3/uL Normal 0.10-1.20 [facility] Comment on above: Performed By: #### P HO, VD25, BMPX, IOCAL, CDP, MG #### [address] [address] Assistant Hvac Mechanic: Joe Hess MD Monocytes/100 WBC (Bld) 7 % Normal 3-12 [facility] Comment on above: Performed By: #### P HO, VD25, BMPX, IOCAL, CDP, MG #### [address] [address] Assistant Hvac Mechanic: Joe Hess MD Neutrophil (Seg) 81 % High 36-65 [facility] Comment on above: Performed By: #### P HO, VD25, BMPX, IOCAL, CDP, MG #### [address] [address] Assistant Hvac Mechanic: Joe Hess MD NRBC Automated 0.0 per 100 WBC Normal 0.0 [facility] Comment on above: Performed By: #### P HO, VD25, BMPX, IOCAL, CDP, MG #### [address] [address] Assistant Hvac Mechanic: Joe Hess MD Platelet mean volume (Bld) [Entitic vol] 9.6 fL Normal 8.1-13.5 [facility] Comment on above: Performed By: #### P HO, VD25, BMPX, IOCAL, CDP, MG #### [address] [address] Assistant Hvac Mechanic: Joe Hess MD Platelets (Bld) [#/Vol] 139 10*3/uL Normal 138-453 [facility] Comment on above: Performed By: #### P HO, VD25, BMPX, IOCAL, CDP, MG #### [facility] [address] [place] [address] Assistant Hvac Mechanic: Joe Hess MD RBC (Bld) [#/Vol] 4.24 10*6/uL Normal 4.21-5.77 [facility] Comment on above: Performed By: #### P HO, VD25, BMPX, IOCAL, CDP, MG #### [address] [address] Assistant Hvac Mechanic: Joe Hess MD WBC (Bld) [#/Vol] 7.4 10*3/uL Normal 3.5-11.3 [facility] Comment on above: Performed By: #### P HO, VD25, BMPX, IOCAL, CDP, MG #### [facility] [address] [place] [address] Assistant Hvac Mechanic: Joe Hess MD CT HEAD WO CONTRASTon 2022 CT HEAD WO CONTRAST EXAMINATION: CT OF THE HEAD WITHOUT CONTRAST 10/01/2022 10:55 pm TECHNIQUE: CT of the head was performed without the administration of intravenous contrast. Automated exposure control, iterative reconstruction, and/or weight based adjustment of the mA/kV was utilized to reduce the radiation dose to as low as reasonably achievable. COMPARISON: CT scan of brain without contrast on 10/01/2022 at 4:32 p.m. HISTORY: ORDERING SYSTEM PROVIDED HISTORY: sah TECHNOLOGIST PROVIDED HISTORY: sah FINDINGS: BRAIN/VENTRICLES: Redemonstration of small focus of subarachnoid hemorrhage, with or without focal cortical hemorrhage at the medial aspect of upper posterior portion of right frontal lobe, and, as compared to previous CT scan the amount of hyperdense blood in this area appears to be decreased to some extent. Redemonstration of small focus of cortical or subcortical hemorrhage at the upper posterosuperior portion of the left frontal lobe similar to previous study. Redemonstration of small punctate foci of cortical or subarachnoid hemorrhage in 3-4 tiny foci at the posterosuperior aspect of the right parietal lobe. Redemonstration of minimal cortical or subarachnoid hemorrhage at the posterior aspect of left parietal lobe similar to previous CT scan findings. Redemonstration of focus of acute hyperdense hemorrhage at the right posterolateral aspect of upper bindu of brainstem in the area of the right superior cerebellar peduncle. This focus of hyperdense hemorrhage measures maximal 6.5 mm, similar to findings on previous CT scan. Redemonstration of small focus of subarachnoid hemorrhage in the depth of the interventricular cistern. There is no new focus of hemorrhage in brain. No evidence of subdural or epidural hematoma. No evidence of intraventricular hemorrhage. Cerebral ventricles are of normal size without midline shift. ORBITS: Redemonstration of findings of fractures involving the lateral wall of left orbit and the left orbital floor with soft tissue emphysema within the left orbit. Within the right orbit there is no soft tissue emphysema or hemorrhage. SINUSES: Redemonstration of comminuted fractures of left lateral wall of the left maxillary sinus and mild depressed fracture of the lateral of the right maxillary sinus. Redemonstration of comminuted fractures involving the anterior wall of the left maxillary sinus. Also there are findings of pre-existing comminuted fractures of the nasal bones. Evidence of dense opacities in bilateral maxillary sinus, suggestive of significant hemorrhage in the sinuses. SOFT TISSUES/SKULL: No evidence of fracture in the skull. IMPRESSION: Redemonstration of multifocal subarachnoid hemorrhage/cortical hemorrhage at the upper medial aspect of right frontal lobe, at the upper posterior aspect of left frontal lobe, and at the posterior aspects of bilateral parietal lobes. Evidence of focal hyperdense acute hemorrhage in the area of the right superior cerebellar peduncle at the right posterior aspect of upper bindu or lower midbrain. Redemonstration of small focus of subarachnoid hemorrhage in the depth of the interpeduncular cistern No new focus of intra-axial or extra-axial hemorrhage. Cerebral ventricles are of normal size without midline shift. No evidence of intraventricular hemorrhage. Interpreted by: Fernanda Prince MD Signed by: Fernanda Prince MD 10/02/22 Final result Normal [facility] Redemonstration of multifocal subarachnoid hemorrhage/cortical hemorrhage at the upper medial aspect of right frontal lobe, at the upper posterior aspect of left frontal lobe, and at the posterior aspects of bilateral parietal lobes. Evidence of focal hyperdense acute hemorrhage in the area of the right superior cerebellar peduncle at the right posterior aspect of upper bindu or lower midbrain. Redemonstration of small focus of subarachnoid hemorrhage in the depth of the interpeduncular cistern No new focus of intra-axial or extra-axial hemorrhage. Cerebral ventricles are of normal size without midline shift. No evidence of intraventricular hemorrhage. [facility] CONSOLIDATED EXAMINATION: CT OF THE HEAD WITHOUT CONTRAST 10/01/2022 10:55 pm TECHNIQUE: CT of the head was performed without the administration of intravenous contrast. Automated exposure control, iterative reconstruction, and/or weight based adjustment of the mA/kV was utilized to reduce the radiation dose to as low as reasonably achievable. COMPARISON: CT scan of brain without contrast on 10/01/2022 at 4:32 p.m. HISTORY: ORDERING SYSTEM PROVIDED HISTORY: sah TECHNOLOGIST PROVIDED HISTORY: sah FINDINGS: BRAIN/VENTRICLES: Redemonstration of small focus of subarachnoid hemorrhage, with or without focal cortical hemorrhage at the medial aspect of upper posterior portion of right frontal lobe, and, as compared to previous CT scan the amount of hyperdense blood in this area appears to be decreased to some extent. Redemonstration of small focus of cortical or subcortical hemorrhage at the upper posterosuperior portion of the left frontal lobe similar to previous study. Redemonstration of small punctate foci of cortical or subarachnoid hemorrhage in 3-4 tiny foci at the posterosuperior aspect of the right parietal lobe. Redemonstration of minimal cortical or subarachnoid hemorrhage at the posterior aspect of left parietal lobe similar to previous CT scan findings. Redemonstration of focus of acute hyperdense hemorrhage at the right posterolateral aspect of upper bindu of brainstem in the area of the right superior cerebellar peduncle. This focus of hyperdense hemorrhage measures maximal 6.5 mm, similar to findings on previous CT scan. Redemonstration of small focus of subarachnoid hemorrhage in the depth of the interventricular cistern. There is no new focus of hemorrhage in brain. No evidence of subdural or epidural hematoma. No evidence of intraventricular hemorrhage. Cerebral ventricles are of normal size without midline shift. ORBITS: Redemonstration of findings of fractures involving the lateral wall of left orbit and the left orbital floor with soft tissue emphysema within the left orbit. Within the right orbit there is no soft tissue emphysema or hemorrhage. SINUSES: Redemonstration of comminuted fractures of left lateral wall of the left maxillary sinus and mild depressed fracture of the lateral of the right maxillary sinus. Redemonstration of comminuted fractures involving the anterior wall of the left maxillary sinus. Also there are findings of pre-existing comminuted fractures of the nasal bones. Evidence of dense opacities in bilateral maxillary sinus, suggestive of significant hemorrhage in the sinuses. SOFT TISSUES/SKULL: No evidence of fracture in the skull. [facility] Fernanda Manzano MD - 10/02/2022 EXAMINATION: CT OF THE HEAD WITHOUT CONTRAST 10/01/2022 10:55 pm TECHNIQUE: CT of the head was performed without the administration of intravenous contrast. Automated exposure control, iterative reconstruction, and/or weight based adjustment of the mA/kV was utilized to reduce the radiation dose to as low as reasonably achievable. COMPARISON: CT scan of brain without contrast on 10/01/2022 at 4:32 p.m. HISTORY: ORDERING SYSTEM PROVIDED HISTORY: sah TECHNOLOGIST PROVIDED HISTORY: sah FINDINGS: BRAIN/VENTRICLES: Redemonstration of small focus of subarachnoid hemorrhage, with or without focal cortical hemorrhage at the medial aspect of upper posterior portion of right frontal lobe, and, as compared to previous CT scan the amount of hyperdense blood in this area appears to be decreased to some extent. Redemonstration of small focus of cortical or subcortical hemorrhage at the upper posterosuperior portion of the left frontal lobe similar to previous study. Redemonstration of small punctate foci of cortical or subarachnoid hemorrhage in 3-4 tiny foci at the posterosuperior aspect of the right parietal lobe. Redemonstration of minimal cortical or subarachnoid hemorrhage at the posterior aspect of left parietal lobe similar to previous CT scan findings. Redemonstration of focus of acute hyperdense hemorrhage at the right posterolateral aspect of upper bindu of brainstem in the area of the right superior cerebellar peduncle. This focus of hyperdense hemorrhage measures maximal 6.5 mm, similar to findings on previous CT scan. Redemonstration of small focus of subarachnoid hemorrhage in the depth of the interventricular cistern. There is no new focus of hemorrhage in brain. No evidence of subdural or epidural hematoma. No evidence of intraventricular hemorrhage. Cerebral ventricles are of normal size without midline shift. ORBITS: Redemonstration of findings of fractures involving the lateral wall of left orbit and the left orbital floor with soft tissue emphysema within the left orbit. Within the right orbit there is no soft tissue emphysema or hemorrhage. SINUSES: Redemonstration of comminuted fractures of left lateral wall of the left maxillary sinus and mild depressed fracture of the lateral of the right maxillary sinus. Redemonstration of comminuted fractures involving the anterior wall of the left maxillary sinus. Also there are findings of pre-existing comminuted fractures of the nasal bones. Evidence of dense opacities in bilateral maxillary sinus, suggestive of significant hemorrhage in the sinuses. SOFT TISSUES/SKULL: No evidence of fracture in the skull. IMPRESSION: Redemonstration of multifocal subarachnoid hemorrhage/cortical hemorrhage at the upper medial aspect of right frontal lobe, at the upper posterior aspect of left frontal lobe, and at the posterior aspects of bilateral parietal lobes. Evidence of focal hyperdense acute hemorrhage in the area of the right superior cerebellar peduncle at the right posterior aspect of upper bindu or lower midbrain. Redemonstration of small focus of subarachnoid hemorrhage in the depth of the interpeduncular cistern No new focus of intra-axial or extra-axial hemorrhage. Cerebral ventricles are of normal size without midline shift. No evidence of intraventricular hemorrhage. [facility] CT HEAD WO CONTRAST ADDENDUM: Connected Jermaine MENEZES with Dr Phipps,10/01/2022 6:12 PM Electronically Signed by: JUAN DAVID PHIPPS on Sun Oct 02, 2022 8:45:34 AM EDT EXAMINATION: CT OF THE HEAD WITHOUT CONTRAST 10/01/2022 4:18 pm TECHNIQUE: CT of the head was performed without the administration of intravenous contrast. Automated exposure control, iterative reconstruction, and/or weight based adjustment of the mA/kV was utilized to reduce the radiation dose to as low as reasonably achievable. COMPARISON: October 01 at 1018 hours HISTORY: ORDERING SYSTEM PROVIDED HISTORY: f/u sah TECHNOLOGIST PROVIDED HISTORY: f/u sah FINDINGS: BRAIN/VENTRICLES: Areas of subarachnoid hemorrhage involving the bilateral parietal and left frontal lobe. Punctate foci of parenchymal hemorrhage are seen within the left frontal lobe. New areas of subdural hemorrhage are seen adjacent to the falx. Minimal hemorrhage in the left sylvian fissure. Stable appearing area of hemorrhage adjacent to the posterior right bindu (series 2, image 25). Hemorrhage is seen in the intra peduncular fossa. No mass effect or subfalcine herniation. The ventricles are normal in position and size. Minimal hemorrhage in the region of the foramen of Monro versus small colored cyst (series 2, image 39). No pneumocephalus identified. Stable appearing numerous facial bone fractures no opacification of the paranasal sinuses. Intra and extraconal left orbital air is noted. Globes are unremarkable in appearance. SOFT TISSUES/SKULL: No acute abnormality of the visualized skull or soft tissues. IMPRESSION: Worsening areas of parenchymal, subdural, and subarachnoid hemorrhage when compared to the prior exam. No appreciable mass effect. No midline shift. Interpreted by: Juan David Phipps MD Signed by: Juan David Phipps MD 10/02/22 Edited Result - FINAL Normal [facility] CT HEAD WO CONTRASTOrdered B y: Fernanda Prince on 10-02-2022 NAOMI GAGETEVIN [facility] [employer] Work Phone: Calcium, Ionicon 10-02-2022 Calcium [Moles/Vol] 1.00 mmol/L Low 1.13-1.33 [facility] Comment on above: Performed By: #### U LAURA Hedrick #### [facility] [address] [place] [address] Assistant Hvac Mechanic: Joe Hess MD Calcium, Ionizedon 3 Calcium.ionized (Bld) [Moles/Vol] 1.00 mmol/L Low 1.13 - 1.33 mmol/L [facility] Interpretation and review of laboratory results Abnormal [facility] Magnesiumon 10-02-2022 Magnesium [Mass/Vol] 1.9 mg/dL 1.6 - 2.6 mg/dL [facility] Magnesium [Mass/Vol] 1.9 mg/dL Normal 1.6-2.6 [facility] Comment on above: Performed By: #### U LAURA Hedrick #### [id number] [address] [place] [address] Assistant Hvac Mechanic: Joe Hess MD No Panel Informationon 10-02 [facility] POC Glucose Fingerstickon Glucose [Mass/Vol] 89 mg/dL 75 - 110 mg/dL [facility] Phosphoruson 10-02-2022 Phosphate [Mass/Vol] 2.9 mg/dL 2.5 - 4.5 mg/dL [facility] Phosphorus, Inorg.on 023 Phosphorus, Inorg. 2.9 mg/dL Normal 2.5-4.5 [facility] Comment on above: Performed By: #### Brian Hedrick, LAURA #### [id number] [address] [place] [address] Assistant Hvac Mechanic: Joe Hess MD Vitamin D 25 Hydroxyon 10-02 25-hydroxyvitamin D3 [Mass/Vol] 18.7 ng/mL Low 29.9 - PINF ng/mL [facility] Comment on above: Reference Range: Vitamin D status Range Deficiency <20 ng/mL Mild Deficiency 20-30 ng/mL Sufficiency 30-100 ng/mL Toxicity >100 ng/mL Interpretation and review of laboratory results Abnormal [facility] Vitamin D 25 OHon 10-02-2022 Vitamin D 25 OH 18.7 ng/mL Low >29.9 [facility] Comment on above: Result Comment: Reference Range: Vitamin D status Range Deficiency <20 ng/mL Mild Deficiency 20-30 ng/mL Sufficiency 30-100 ng/mL Toxicity >100 ng/mL Performed By: #### U LAURA Hedrick #### [facility] [address] [place] [address] Assistant Hvac Mechanic: Joe Hess MD XR WRIST LEFT (MIN 3 VIEWS)o n 10-02-2022 XR WRIST LEFT (MIN 3 VIEWS) EXAMINATION: 3 XRAY VIEWS OF THE LEFT WRIST 10/02/2022 9:03 pm COMPARISON: Left wrist radiograph series performed earlier today. HISTORY: ORDERING SYSTEM PROVIDED HISTORY: Trauma/Fracture. Reason for Exam: fracture FINDINGS: *Unchanged comminuted, Y configured articular 2 cortex width radial displaced mildly impacted distal radial metaphysis fracture. *Possible acute, nondisplaced distal ulnar fracture versus overlying artifact. *Diffuse left wrist soft tissue edema. *Overlying splint material obscures detail greatly. IMPRESSION: 1. Unchanged comminuted, Y configured articular 2 cortex width radial displaced mildly impacted distal radial metaphysis fracture. 2. Possible acute, nondisplaced distal ulnar fracture versus overlying artifact. 3. Diffuse left wrist soft tissue edema. 4. Overlying splint material obscures detail greatly. Interpreted by: Wili Casillas MD Signed by: Wili Casillas MD 10/02/22 Final result Normal [facility] 1. Unchanged comminuted, Y configured articular 2 cortex width radial displaced mildly impacted distal radial metaphysis fracture. 2. Possible acute, nondisplaced distal ulnar fracture versus overlying artifact. 3. Diffuse left wrist soft tissue edema. 4. Overlying splint material obscures detail greatly. [facility] CON[facility] EXAMINATION: 3 XRAY VIEWS OF THE LEFT WRIST 10/02/2022 9:03 pm COMPARISON: Left wrist radiograph series performed earlier today. HISTORY: ORDERING SYSTEM PROVIDED HISTORY: Trauma/Fracture. Reason for Exam: fracture FINDINGS: *Unchanged comminuted, Y configured articular 2 cortex width radial displaced mildly impacted distal radial metaphysis fracture. *Possible acute, nondisplaced distal ulnar fracture versus overlying artifact. *Diffuse left wrist soft tissue edema. *Overlying splint material obscures detail greatly. [facility] Wili Casillas MD - 10/02/2022 EXAMINATION: 3 XRAY VIEWS OF THE LEFT WRIST 10/02/2022 9:03 pm COMPARISON: Left wrist radiograph series performed earlier today. HISTORY: ORDERING SYSTEM PROVIDED HISTORY: Trauma/Fracture. Reason for Exam: fracture FINDINGS: *Unchanged comminuted, Y configured articular 2 cortex width radial displaced mildly impacted distal radial metaphysis fracture. *Possible acute, nondisplaced distal ulnar fracture versus overlying artifact. *Diffuse left wrist soft tissue edema. *Overlying splint material obscures detail greatly. IMPRESSION: 1. Unchanged comminuted, Y configured articular 2 cortex width radial displaced mildly impacted distal radial metaphysis fracture. 2. Possible acute, nondisplaced distal ulnar fracture versus overlying artifact. 3. Diffuse left wrist soft tissue edema. 4. Overlying splint material obscures detail greatly. [facility] Radiology Study observation (narrative) [facility] XR WRIST LEFT (MIN 3 VIEWS)O rdered By: Wili Casillas on 10-02-2022 [facility] Work Phone: CT CERVICAL SPINE WO CONTRAS Ton 10-01-2022 CT CERVICAL SPINE WO CONTRAST EXAMINATION: CT OF THE CERVICAL SPINE WITHOUT CONTRAST 10/01/2022 10:14 am TECHNIQUE: CT of the cervical spine was performed without the administration of intravenous contrast. Multiplanar reformatted images are provided for review. Automated exposure control, iterative reconstruction, and/or weight based adjustment of the mA/kV was utilized to reduce the radiation dose to as low as reasonably achievable. COMPARISON: None. HISTORY: ORDERING SYSTEM PROVIDED HISTORY: Trauma TECHNOLOGIST PROVIDED HISTORY: Trauma FINDINGS: BONES/ALIGNMENT: There is no acute fracture or traumatic malalignment. DEGENERATIVE CHANGES: Multilevel degenerative changes SOFT TISSUES: There is no prevertebral soft tissue swelling. IMPRESSION: No acute abnormality of the cervical spine. Interpreted by: Azael Khan MD Signed by: Azael Khan MD 10/01/22 Final result Normal [facility] No acute abnormality of the cervical spine. [facility] EXAMINATION: CT OF THE CERVICAL SPINE WITHOUT CONTRAST 10/01/2022 10:14 am TECHNIQUE: CT of the cervical spine was performed without the administration of intravenous contrast. Multiplanar reformatted images are provided for review. Automated exposure control, iterative reconstruction, and/or weight based adjustment of the mA/kV was utilized to reduce the radiation dose to as low as reasonably achievable. COMPARISON: None. HISTORY: ORDERING SYSTEM PROVIDED HISTORY: Trauma TECHNOLOGIST PROVIDED HISTORY: Trauma FINDINGS: BONES/ALIGNMENT: There is no acute fracture or traumatic malalignment. DEGENERATIVE CHANGES: Multilevel degenerative changes SOFT TISSUES: There is no prevertebral soft tissue swelling. [facility] Azael Dias MD - 10/01/2022 EXAMINATION: CT OF THE CERVICAL SPINE WITHOUT CONTRAST 10/01/2022 10:14 am TECHNIQUE: CT of the cervical spine was performed without the administration of intravenous contrast. Multiplanar reformatted images are provided for review. Automated exposure control, iterative reconstruction, and/or weight based adjustment of the mA/kV was utilized to reduce the radiation dose to as low as reasonably achievable. COMPARISON: None. HISTORY: ORDERING SYSTEM PROVIDED HISTORY: Trauma TECHNOLOGIST PROVIDED HISTORY: Trauma FINDINGS: BONES/ALIGNMENT: There is no acute fracture or traumatic malalignment. DEGENERATIVE CHANGES: Multilevel degenerative changes SOFT TISSUES: There is no prevertebral soft tissue swelling. IMPRESSION: No acute abnormality of the cervical spine. [facility] CT CERVICAL SPINE WO CONTRAS TOrdered By: Azael Khan on 10-01-2022 [facility] Work Phone: CT CHEST ABDOMEN PELVIS W CO NTRASTon 10-01-2022 CT CHEST ABDOMEN PELVIS W CONTRAST EXAMINATION: CT OF THE LUMBAR SPINE WITHOUT CONTRAST; CT OF THE THORACIC SPINE WITHOUT CONTRAST; CT OF THE CHEST, ABDOMEN, AND PELVIS WITH CONTRAST 10/01/2022 10:14 am TECHNIQUE: CT of the lumbar spine was performed without the administration of intravenous contrast. Multiplanar reformatted images are provided for review. Adjustment of mA and/or kV according to patient size was utilized. Automated exposure control, iterative reconstruction, and/or weight based adjustment of the mA/kV was utilized to reduce the radiation dose to as low as reasonably achievable.; CT of the thoracic spine was performed without the administration of intravenous contrast. Multiplanar reformatted images are provided for review. Automated exposure control, iterative reconstruction, and/or weight based adjustment of the mA/kV was utilized to reduce the radiation dose to as low as reasonably achievable.; CT of the chest, abdomen and pelvis was performed with the administration of intravenous contrast. Multiplanar reformatted images are provided for review. Automated exposure control, iterative reconstruction, and/or weight based adjustment of the mA/kV was utilized to reduce the radiation dose to as low as reasonably achievable. COMPARISON: None. HISTORY: ORDERING SYSTEM PROVIDED HISTORY: TRAUMA TECHNOLOGIST PROVIDED HISTORY: Trauma trauma; ORDERING SYSTEM PROVIDED HISTORY: trauma TECHNOLOGIST PROVIDED HISTORY: trauma; ORDERING SYSTEM PROVIDED HISTORY: Trauma TECHNOLOGIST PROVIDED HISTORY: Trauma FINDINGS: CT SCAN CHEST: Mediastinum: There are a few less than 1 cm mediastinal lymph nodes but no lymphadenopathy is seen. The thoracic aorta is not aneurysmal. No dissection is seen. There are no defects involving the major pulmonary arteries. Lungs/pleura: The lung parenchyma demonstrates no focal infiltrates or masses. No pleural effusions or pneumothoraces are seen. Bones/soft tissues: No acute bony abnormalities are noted. CT SCAN ABDOMEN AND PELVIS: Organs: The liver, spleen, gallbladder, pancreas and adrenal glands appear unremarkable. There is symmetric enhancement of the kidneys. No hydronephrosis is seen. No ureteral or bladder calculi are seen. GI/Bowel: Evaluation of the bowel is limited as no enteric contrast was given. No dilated loops of bowel are seen. There is scattered diverticular disease involving the colon but no findings to suggest active inflammation. I do not see a dilated appendix. Pelvis: No pelvic masses or fluid collections are seen. Peritoneum/Retroper itoneum: The abdominal aorta is not aneurysmal. There are shotty mesenteric and retroperitoneal lymph nodes but no lymphadenopathy is seen. Bones/Soft Tissues: No acute bony abnormalities are noted. CT SCAN THORACIC AND LUMBAR SPINE: BONES/ALIGNMENT: There is normal alignment of the spine. The vertebral body heights are maintained. No osseous destructive lesion is seen. There is non osseous union involving the left transverse process of L1. No acute fractures are seen. DEGENERATIVE CHANGES: There is degenerative disc disease most pronounced at L5-S1. SOFT TISSUES/RETROPERITO NEUM: No paraspinal mass is seen. IMPRESSION: 1. No active pulmonary disease. 2. No acute intra-abdominal or pelvic abnormality. 3. No acute traumatic abnormality involving the thoracic or lumbar spine. Interpreted by: Chuy Roy MD Signed by: Chuy Roy MD 10/01/22 Final result Normal [facility] CT FACIAL BONES WO CONTRASTo n 10-01-2022 CT FACIAL BONES WO CONTRAST EXAMINATION: CT OF THE FACE WITHOUT CONTRAST 10/01/2022 10:57 am TECHNIQUE: CT of the face was performed without the administration of intravenous contrast. Multiplanar reformatted images are provided for review. Automated exposure control, iterative reconstruction, and/or weight based adjustment of the mA/kV was utilized to reduce the radiation dose to as low as reasonably achievable. COMPARISON: None. HISTORY: ORDERING SYSTEM PROVIDED HISTORY: facial fractures TECHNOLOGIST PROVIDED HISTORY: facial fractures Decision Support Exception - unselect if not a suspected or confirmed emergency medical condition->Emergenc y Medical Condition (MA) FINDINGS: FACIAL BONES: There are numerous facial bone fractures. There are nondisplaced fractures of the right pterygoid plates. No visible fracture involving the left pterygoid plates. Mandible and temporomandibular joints are intact. There is a nondisplaced fracture at the anterior nasal maxillary spine. Hard palate is intact. There is hemorrhage in the right maxillary sinus with suspected nondisplaced fractures of the medial and lateral sadlivar. There are multiple mildly displaced fractures involving all saldivar of the left maxillary sinus. There are mildly displaced fractures of bilateral nasal bones. Right orbital bones are intact. There a comminuted and displaced fracture at the floor of the left orbit. There is herniation of extraconal fat and minimal displacement of the inferior rectus muscle into the fracture defect. There are multiple foci of gas in the intraconal and extraconal fat. There are nondisplaced fractures of the left lamina papyracea. There is a minimally displaced fracture at the lateral wall of the left orbit. Roof of the orbit is intact. There is a nondisplaced fracture of the left zygomatic arch. Right zygomatic arch is intact. ORBITAL CONTENTS: The globes appear intact. There is mild left-sided proptosis. No evidence of retrobulbar hematoma. SINUSES: There is scattered hemorrhage and mucosal thickening in the paranasal sinuses. Mastoid air cells are well aerated. SOFT TISSUES: There is scattered soft tissue edema and soft tissue gas in the soft tissues of the face, more so on the left. IMPRESSION: 1. Multiple acute maxillofacial fractures, as below: -nondisplaced fractures of the right pterygoid plates. -nondisplaced fracture at the anterior nasal maxillary spine and mildly displaced fractures of bilateral nasal bones. -nondisplaced fractures at the medial and lateral saldivar of the right maxillary sinus. -multiple mildly displaced fractures involving all saldivar of the left maxillary sinus. -comminuted left orbital blowout fracture with herniation of extraconal fat and minimal displacement of the inferior rectus muscle. Multiple foci of gas in the intraconal and extraconal fat. No visible retrobulbar hematoma. -nondisplaced fractures of the left lamina papyracea. -minimally displaced fracture at the lateral wall of the left orbit. -nondisplaced fracture of the left zygomatic arch 2. Mild left-sided proptosis. 3. Scattered hemorrhage and mucosal thickening in the paranasal sinuses. 4. Scattered soft tissue edema and gas. Interpreted by: Uzma Beckett DO Signed by: Uzma Beckett DO 10/01/22 Final result Normal [facility] 1. Multiple acute maxillofacial fractures, as below: -nondisplaced fractures of the right pterygoid plates. -nondisplaced fracture at the anterior nasal maxillary spine and mildly displaced fractures of bilateral nasal bones. -nondisplaced fractures at the medial and lateral saldivar of the right maxillary sinus. -multiple mildly displaced fractures involving all saldivar of the left maxillary sinus. -comminuted left orbital blowout fracture with herniation of extraconal fat and minimal displacement of the inferior rectus muscle. Multiple foci of gas in the intraconal and extraconal fat. No visible retrobulbar hematoma. -nondisplaced fractures of the left lamina papyracea. -minimally displaced fracture at the lateral wall of the left orbit. -nondisplaced fracture of the left zygomatic arch 2. Mild left-sided proptosis. 3. Scattered hemorrhage and mucosal thickening in the paranasal sinuses. 4. Scattered soft tissue edema and gas. [facility] CONSOLIDATED EXAMINATION: CT OF THE FACE WITHOUT CONTRAST 10/01/2022 10:57 am TECHNIQUE: CT of the face was performed without the administration of intravenous contrast. Multiplanar reformatted images are provided for review. Automated exposure control, iterative reconstruction, and/or weight based adjustment of the mA/kV was utilized to reduce the radiation dose to as low as reasonably achievable. COMPARISON: None. HISTORY: ORDERING SYSTEM PROVIDED HISTORY: facial fractures TECHNOLOGIST PROVIDED HISTORY: facial fractures Decision Support Exception - unselect if not a suspected or confirmed emergency medical condition->Emergenc y Medical Condition (MA) FINDINGS: FACIAL BONES: There are numerous facial bone fractures. There are nondisplaced fractures of the right pterygoid plates. No visible fracture involving the left pterygoid plates. Mandible and temporomandibular joints are intact. There is a nondisplaced fracture at the anterior nasal maxillary spine. Hard palate is intact. There is hemorrhage in the right maxillary sinus with suspected nondisplaced fractures of the medial and lateral saldivar. There are multiple mildly displaced fractures involving all saldivar of the left maxillary sinus. There are mildly displaced fractures of bilateral nasal bones. Right orbital bones are intact. There a comminuted and displaced fracture at the floor of the left orbit. There is herniation of extraconal fat and minimal displacement of the inferior rectus muscle into the fracture defect. There are multiple foci of gas in the intraconal and extraconal fat. There are nondisplaced fractures of the left lamina papyracea. There is a minimally displaced fracture at the lateral wall of the left orbit. Roof of the orbit is intact. There is a nondisplaced fracture of the left zygomatic arch. Right zygomatic arch is intact. ORBITAL CONTENTS: The globes appear intact. There is mild left-sided proptosis. No evidence of retrobulbar hematoma. SINUSES: There is scattered hemorrhage and mucosal thickening in the paranasal sinuses. Mastoid air cells are well aerated. SOFT TISSUES: There is scattered soft tissue edema and soft tissue gas in the soft tissues of the face, more so on the left. [facility] Uzma Beckett DO - 10/01/2022 EXAMINATION: CT OF THE FACE WITHOUT CONTRAST 10/01/2022 10:57 am TECHNIQUE: CT of the face was performed without the administration of intravenous contrast. Multiplanar reformatted images are provided for review. Automated exposure control, iterative reconstruction, and/or weight based adjustment of the mA/kV was utilized to reduce the radiation dose to as low as reasonably achievable. COMPARISON: None. HISTORY: ORDERING SYSTEM PROVIDED HISTORY: facial fractures TECHNOLOGIST PROVIDED HISTORY: facial fractures Decision Support Exception - unselect if not a suspected or confirmed emergency medical condition->Emergenc y Medical Condition (MA) FINDINGS: FACIAL BONES: There are numerous facial bone fractures. There are nondisplaced fractures of the right pterygoid plates. No visible fracture involving the left pterygoid plates. Mandible and temporomandibular joints are intact. There is a nondisplaced fracture at the anterior nasal maxillary spine. Hard palate is intact. There is hemorrhage in the right maxillary sinus with suspected nondisplaced fractures of the medial and lateral saldivar. There are multiple mildly displaced fractures involving all saldivar of the left maxillary sinus. There are mildly displaced fractures of bilateral nasal bones. Right orbital bones are intact. There a comminuted and displaced fracture at the floor of the left orbit. There is herniation of extraconal fat and minimal displacement of the inferior rectus muscle into the fracture defect. There are multiple foci of gas in the intraconal and extraconal fat. There are nondisplaced fractures of the left lamina papyracea. There is a minimally displaced fracture at the lateral wall of the left orbit. Roof of the orbit is intact. There is a nondisplaced fracture of the left zygomatic arch. Right zygomatic arch is intact. ORBITAL CONTENTS: The globes appear intact. There is mild left-sided proptosis. No evidence of retrobulbar hematoma. SINUSES: There is scattered hemorrhage and mucosal thickening in the paranasal sinuses. Mastoid air cells are well aerated. SOFT TISSUES: There is scattered soft tissue edema and soft tissue gas in the soft tissues of the face, more so on the left. IMPRESSION: 1. Multiple acute maxillofacial fractures, as below: -nondisplaced fractures of the right pterygoid plates. -nondisplaced fracture at the anterior nasal maxillary spine and mildly displaced fractures of bilateral nasal bones. -nondisplaced fractures at the medial and lateral saldivar of the right maxillary sinus. -multiple mildly displaced fractures involving all saldivar of the left maxillary sinus. -comminuted left orbital blowout fracture with herniation of extraconal fat and minimal displacement of the inferior rectus muscle. Multiple foci of gas in the intraconal and extraconal fat. No visible retrobulbar hematoma. -nondisplaced fractures of the left lamina papyracea. -minimally displaced fracture at the lateral wall of the left orbit. -nondisplaced fracture of the left zygomatic arch 2. Mild left-sided proptosis. 3. Scattered hemorrhage and mucosal thickening in the paranasal sinuses. 4. Scattered soft tissue edema and gas. [facility] Radiology Study observation (narrative) [facility] CT HEAD WO CONTRASTon 2022 Radiology Study observation (narrative) [facility] Addendum by Juan David Phipps MD on 10/02/2022 8:45 AM EDT ADDENDUM: Connected Jermaine MENEZES with Dr Phipps,10/01/2022 6:12 PM [facility] Worsening areas of parenchymal, subdural, and subarachnoid hemorrhage when compared to the prior exam. No appreciable mass effect. No midline shift. [facility] CONSOLIDATED EXAMINATION: CT OF THE HEAD WITHOUT CONTRAST 10/01/2022 4:18 pm TECHNIQUE: CT of the head was performed without the administration of intravenous contrast. Automated exposure control, iterative reconstruction, and/or weight based adjustment of the mA/kV was utilized to reduce the radiation dose to as low as reasonably achievable. COMPARISON: October 01 at 1018 hours HISTORY: ORDERING SYSTEM PROVIDED HISTORY: f/u sah TECHNOLOGIST PROVIDED HISTORY: f/u sah FINDINGS: BRAIN/VENTRICLES: Areas of subarachnoid hemorrhage involving the bilateral parietal and left frontal lobe. Punctate foci of parenchymal hemorrhage are seen within the left frontal lobe. New areas of subdural hemorrhage are seen adjacent to the falx. Minimal hemorrhage in the left sylvian fissure. Stable appearing area of hemorrhage adjacent to the posterior right bidnu (series 2, image 25). Hemorrhage is seen in the intra peduncular fossa. No mass effect or subfalcine herniation. The ventricles are normal in position and size. Minimal hemorrhage in the region of the foramen of Monro versus small colored cyst (series 2, image 39). No pneumocephalus identified. Stable appearing numerous facial bone fractures no opacification of the paranasal sinuses. Intra and extraconal left orbital air is noted. Globes are unremarkable in appearance. SOFT TISSUES/SKULL: No acute abnormality of the visualized skull or soft tissues. [facility] Juan David Phipps MD - 10/01/2022 EXAMINATION: CT OF THE HEAD WITHOUT CONTRAST 10/01/2022 4:18 pm TECHNIQUE: CT of the head was performed without the administration of intravenous contrast. Automated exposure control, iterative reconstruction, and/or weight based adjustment of the mA/kV was utilized to reduce the radiation dose to as low as reasonably achievable. COMPARISON: October 01 at 1018 hours HISTORY: ORDERING SYSTEM PROVIDED HISTORY: f/u sah TECHNOLOGIST PROVIDED HISTORY: f/u sah FINDINGS: BRAIN/VENTRICLES: Areas of subarachnoid hemorrhage involving the bilateral parietal and left frontal lobe. Punctate foci of parenchymal hemorrhage are seen within the left frontal lobe. New areas of subdural hemorrhage are seen adjacent to the falx. Minimal hemorrhage in the left sylvian fissure. Stable appearing area of hemorrhage adjacent to the posterior right bindu (series 2, image 25). Hemorrhage is seen in the intra peduncular fossa. No mass effect or subfalcine herniation. The ventricles are normal in position and size. Minimal hemorrhage in the region of the foramen of Monro versus small colored cyst (series 2, image 39). No pneumocephalus identified. Stable appearing numerous facial bone fractures no opacification of the paranasal sinuses. Intra and extraconal left orbital air is noted. Globes are unremarkable in appearance. SOFT TISSUES/SKULL: No acute abnormality of the visualized skull or soft tissues. IMPRESSION: Worsening areas of parenchymal, subdural, and subarachnoid hemorrhage when compared to the prior exam. No appreciable mass effect. No midline shift. [facility] CT HEAD WO CONTRAST EXAMINATION: CT OF THE HEAD WITHOUT CONTRAST 10/01/2022 10:14 am TECHNIQUE: CT of the head was performed without the administration of intravenous contrast. Automated exposure control, iterative reconstruction, and/or weight based adjustment of the mA/kV was utilized to reduce the radiation dose to as low as reasonably achievable. COMPARISON: None. HISTORY: ORDERING SYSTEM PROVIDED HISTORY: Trauma TECHNOLOGIST PROVIDED HISTORY: Trauma FINDINGS: BRAIN/VENTRICLES: There is a tiny focus of subarachnoid hemorrhage in the right ambient cistern. There is also a tiny amount of subarachnoid hemorrhage in the left frontal and parietal sulci. No mass effect or midline shift.. The brush-white differentiation is maintained without evidence of an acute infarct. There is no evidence of hydrocephalus. SINUSES: There is hemorrhage in the bilateral maxillary sinuses. There is mucosal thickening and hemorrhage in the frontal, sphenoid, and ethmoid sinuses as well. There are fractures of bilateral nasal bones. Multiple fractures is in the saldivar of the maxillary sinuses, more so on the left. There is a blowout fracture at the left orbit with minimal herniation of the left inferior rectus muscle. There is intraconal and extraconal gas at the left orbit. There is a fracture at the lateral wall of the left orbit. Possible nondisplaced fracture of the left zygoma. SOFT TISSUES/SKULL: No acute abnormality of the visualized skull or soft tissues. IMPRESSION: 1. There are a few tiny foci of subarachnoid hemorrhage, including in the right ambient cistern as well as at the left frontal and parietal sulci. No mass effect or midline shift. 2. Multiple facial fractures with hemorrhage in the paranasal sinuses. Facial fractures include bilateral maxillary sinuses, nasal bones, and a left orbital blowout fracture. There is intra and extraconal gas at the left orbit. Critical results were called by Dr. Uzma Beckett to Dr. Schmidt on 10/01/2022 at 10:44. Interpreted by: Uzma Beckett DO Signed by: Uzma Beckett DO 10/01/22 Final result Normal [facility] 1. There are a few tiny foci of subarachnoid hemorrhage, including in the right ambient cistern as well as at the left frontal and parietal sulci. No mass effect or midline shift. 2. Multiple facial fractures with hemorrhage in the paranasal sinuses. Facial fractures include bilateral maxillary sinuses, nasal bones, and a left orbital blowout fracture. There is intra and extraconal gas at the left orbit. Critical results were called by Dr. Uzma Beckett to Dr. Schmidt on 10/01/2022 at 10:44. [facility] R[facility] CONSOLIDATED EXAMINATION: CT OF THE HEAD WITHOUT CONTRAST 10/01/2022 10:14 am TECHNIQUE: CT of the head was performed without the administration of intravenous contrast. Automated exposure control, iterative reconstruction, and/or weight based adjustment of the mA/kV was utilized to reduce the radiation dose to as low as reasonably achievable. COMPARISON: None. HISTORY: ORDERING SYSTEM PROVIDED HISTORY: Trauma TECHNOLOGIST PROVIDED HISTORY: Trauma FINDINGS: BRAIN/VENTRICLES: There is a tiny focus of subarachnoid hemorrhage in the right ambient cistern. There is also a tiny amount of subarachnoid hemorrhage in the left frontal and parietal sulci. No mass effect or midline shift.. The brush-white differentiation is maintained without evidence of an acute infarct. There is no evidence of hydrocephalus. SINUSES: There is hemorrhage in the bilateral maxillary sinuses. There is mucosal thickening and hemorrhage in the frontal, sphenoid, and ethmoid sinuses as well. There are fractures of bilateral nasal bones. Multiple fractures is in the saldivar of the maxillary sinuses, more so on the left. There is a blowout fracture at the left orbit with minimal herniation of the left inferior rectus muscle. There is intraconal and extraconal gas at the left orbit. There is a fracture at the lateral wall of the left orbit. Possible nondisplaced fracture of the left zygoma. SOFT TISSUES/SKULL: No acute abnormality of the visualized skull or soft tissues. [facility] Uzma Bah, DO - 10/01/2022 EXAMINATION: CT OF THE HEAD WITHOUT CONTRAST 10/01/2022 10:14 am TECHNIQUE: CT of the head was performed without the administration of intravenous contrast. Automated exposure control, iterative reconstruction, and/or weight based adjustment of the mA/kV was utilized to reduce the radiation dose to as low as reasonably achievable. COMPARISON: None. HISTORY: ORDERING SYSTEM PROVIDED HISTORY: Trauma TECHNOLOGIST PROVIDED HISTORY: Trauma FINDINGS: BRAIN/VENTRICLES: There is a tiny focus of subarachnoid hemorrhage in the right ambient cistern. There is also a tiny amount of subarachnoid hemorrhage in the left frontal and parietal sulci. No mass effect or midline shift.. The brush-white differentiation is maintained without evidence of an acute infarct. There is no evidence of hydrocephalus. SINUSES: There is hemorrhage in the bilateral maxillary sinuses. There is mucosal thickening and hemorrhage in the frontal, sphenoid, and ethmoid sinuses as well. There are fractures of bilateral nasal bones. Multiple fractures is in the saldivar of the maxillary sinuses, more so on the left. There is a blowout fracture at the left orbit with minimal herniation of the left inferior rectus muscle. There is intraconal and extraconal gas at the left orbit. There is a fracture at the lateral wall of the left orbit. Possible nondisplaced fracture of the left zygoma. SOFT TISSUES/SKULL: No acute abnormality of the visualized skull or soft tissues. IMPRESSION: 1. There are a few tiny foci of subarachnoid hemorrhage, including in the right ambient cistern as well as at the left frontal and parietal sulci. No mass effect or midline shift. 2. Multiple facial fractures with hemorrhage in the paranasal sinuses. Facial fractures include bilateral maxillary sinuses, nasal bones, and a left orbital blowout fracture. There is intra and extraconal gas at the left orbit. Critical results were called by Dr. Uzma Beckett to Dr. Schmidt on 10/01/2022 at 10:44. [facility] CT HEAD WO CONTRASTOrdered B y: Uzma Beckett on 10-01-2022 [facility] Work Phone: CT LUMBAR SPINE TRAUMA RECON STRUCTIONon 10-01-2022 CT LUMBAR SPINE TRAUMA RECONSTRUCTION EXAMINATION: CT OF THE LUMBAR SPINE WITHOUT CONTRAST; CT OF THE THORACIC SPINE WITHOUT CONTRAST; CT OF THE CHEST, ABDOMEN, AND PELVIS WITH CONTRAST 10/01/2022 10:14 am TECHNIQUE: CT of the lumbar spine was performed without the administration of intravenous contrast. Multiplanar reformatted images are provided for review. Adjustment of mA and/or kV according to patient size was utilized. Automated exposure control, iterative reconstruction, and/or weight based adjustment of the mA/kV was utilized to reduce the radiation dose to as low as reasonably achievable.; CT of the thoracic spine was performed without the administration of intravenous contrast. Multiplanar reformatted images are provided for review. Automated exposure control, iterative reconstruction, and/or weight based adjustment of the mA/kV was utilized to reduce the radiation dose to as low as reasonably achievable.; CT of the chest, abdomen and pelvis was performed with the administration of intravenous contrast. Multiplanar reformatted images are provided for review. Automated exposure control, iterative reconstruction, and/or weight based adjustment of the mA/kV was utilized to reduce the radiation dose to as low as reasonably achievable. COMPARISON: None. HISTORY: ORDERING SYSTEM PROVIDED HISTORY: TRAUMA TECHNOLOGIST PROVIDED HISTORY: Trauma trauma; ORDERING SYSTEM PROVIDED HISTORY: trauma TECHNOLOGIST PROVIDED HISTORY: trauma; ORDERING SYSTEM PROVIDED HISTORY: Trauma TECHNOLOGIST PROVIDED HISTORY: Trauma FINDINGS: CT SCAN CHEST: Mediastinum: There are a few less than 1 cm mediastinal lymph nodes but no lymphadenopathy is seen. The thoracic aorta is not aneurysmal. No dissection is seen. There are no defects involving the major pulmonary arteries. Lungs/pleura: The lung parenchyma demonstrates no focal infiltrates or masses. No pleural effusions or pneumothoraces are seen. Bones/soft tissues: No acute bony abnormalities are noted. CT SCAN ABDOMEN AND PELVIS: Organs: The liver, spleen, gallbladder, pancreas and adrenal glands appear unremarkable. There is symmetric enhancement of the kidneys. No hydronephrosis is seen. No ureteral or bladder calculi are seen. GI/Bowel: Evaluation of the bowel is limited as no enteric contrast was given. No dilated loops of bowel are seen. There is scattered diverticular disease involving the colon but no findings to suggest active inflammation. I do not see a dilated appendix. Pelvis: No pelvic masses or fluid collections are seen. Peritoneum/Retroper itoneum: The abdominal aorta is not aneurysmal. There are shotty mesenteric and retroperitoneal lymph nodes but no lymphadenopathy is seen. Bones/Soft Tissues: No acute bony abnormalities are noted. CT SCAN THORACIC AND LUMBAR SPINE: BONES/ALIGNMENT: There is normal alignment of the spine. The vertebral body heights are maintained. No osseous destructive lesion is seen. There is non osseous union involving the left transverse process of L1. No acute fractures are seen. DEGENERATIVE CHANGES: There is degenerative disc disease most pronounced at L5-S1. SOFT TISSUES/RETROPERITO NEUM: No paraspinal mass is seen. IMPRESSION: 1. No active pulmonary disease. 2. No acute intra-abdominal or pelvic abnormality. 3. No acute traumatic abnormality involving the thoracic or lumbar spine. Interpreted by: Chuy Roy MD Signed by: Chuy Roy MD 10/01/22 Final result Normal [facility] CT THORACIC SPINE TRAUMA REC ONSTRUCTIONon 10-01-2022 CT THORACIC SPINE TRAUMA RECONSTRUCTION EXAMINATION: CT OF THE LUMBAR SPINE WITHOUT CONTRAST; CT OF THE THORACIC SPINE WITHOUT CONTRAST; CT OF THE CHEST, ABDOMEN, AND PELVIS WITH CONTRAST 10/01/2022 10:14 am TECHNIQUE: CT of the lumbar spine was performed without the administration of intravenous contrast. Multiplanar reformatted images are provided for review. Adjustment of mA and/or kV according to patient size was utilized. Automated exposure control, iterative reconstruction, and/or weight based adjustment of the mA/kV was utilized to reduce the radiation dose to as low as reasonably achievable.; CT of the thoracic spine was performed without the administration of intravenous contrast. Multiplanar reformatted images are provided for review. Automated exposure control, iterative reconstruction, and/or weight based adjustment of the mA/kV was utilized to reduce the radiation dose to as low as reasonably achievable.; CT of the chest, abdomen and pelvis was performed with the administration of intravenous contrast. Multiplanar reformatted images are provided for review. Automated exposure control, iterative reconstruction, and/or weight based adjustment of the mA/kV was utilized to reduce the radiation dose to as low as reasonably achievable. COMPARISON: None. HISTORY: ORDERING SYSTEM PROVIDED HISTORY: TRAUMA TECHNOLOGIST PROVIDED HISTORY: Trauma trauma; ORDERING SYSTEM PROVIDED HISTORY: trauma TECHNOLOGIST PROVIDED HISTORY: trauma; ORDERING SYSTEM PROVIDED HISTORY: Trauma TECHNOLOGIST PROVIDED HISTORY: Trauma FINDINGS: CT SCAN CHEST: Mediastinum: There are a few less than 1 cm mediastinal lymph nodes but no lymphadenopathy is seen. The thoracic aorta is not aneurysmal. No dissection is seen. There are no defects involving the major pulmonary arteries. Lungs/pleura: The lung parenchyma demonstrates no focal infiltrates or masses. No pleural effusions or pneumothoraces are seen. Bones/soft tissues: No acute bony abnormalities are noted. CT SCAN ABDOMEN AND PELVIS: Organs: The liver, spleen, gallbladder, pancreas and adrenal glands appear unremarkable. There is symmetric enhancement of the kidneys. No hydronephrosis is seen. No ureteral or bladder calculi are seen. GI/Bowel: Evaluation of the bowel is limited as no enteric contrast was given. No dilated loops of bowel are seen. There is scattered diverticular disease involving the colon but no findings to suggest active inflammation. I do not see a dilated appendix. Pelvis: No pelvic masses or fluid collections are seen. Peritoneum/Retroper itoneum: The abdominal aorta is not aneurysmal. There are shotty mesenteric and retroperitoneal lymph nodes but no lymphadenopathy is seen. Bones/Soft Tissues: No acute bony abnormalities are noted. CT SCAN THORACIC AND LUMBAR SPINE: BONES/ALIGNMENT: There is normal alignment of the spine. The vertebral body heights are maintained. No osseous destructive lesion is seen. There is non osseous union involving the left transverse process of L1. No acute fractures are seen. DEGENERATIVE CHANGES: There is degenerative disc disease most pronounced at L5-S1. SOFT TISSUES/RETROPERITO NEUM: No paraspinal mass is seen. IMPRESSION: 1. No active pulmonary disease. 2. No acute intra-abdominal or pelvic abnormality. 3. No acute traumatic abnormality involving the thoracic or lumbar spine. Interpreted by: Chuy Roy MD Signed by: Chuy Roy MD 10/01/22 Final result Normal [facility] CTA NECK W CONTRASTon 2022 CTA NECK W CONTRAST EXAMINATION: CTA OF THE NECK 10/01/2022 4:18 pm TECHNIQUE: CTA of the neck was performed with the administration of intravenous contrast. Multiplanar reformatted images are provided for review. MIP images are provided for review. Stenosis of the internal carotid arteries measured using NASCET criteria. Automated exposure control, iterative reconstruction, and/or weight based adjustment of the mA/kV was utilized to reduce the radiation dose to as low as reasonably achievable. COMPARISON: None. HISTORY: ORDERING SYSTEM PROVIDED HISTORY: multiple deep facial fxs s/p fall TECHNOLOGIST PROVIDED HISTORY: multiple deep facial fxs s/p fall Decision Support Exception - unselect if not a suspected or confirmed emergency medical condition->Emergenc y Medical Condition (MA) FINDINGS: AORTIC ARCH/ARCH VESSELS: No dissection or arterial injury. No significant stenosis of the brachiocephalic or subclavian arteries. CAROTID ARTERIES: No dissection, arterial injury, or hemodynamically significant stenosis by NASCET criteria. VERTEBRAL ARTERIES: No dissection, arterial injury, or significant stenosis. SOFT TISSUES: No active contrast extravasation. BONES: Please see separate head, face and cervical spine CT reports. IMPRESSION: No acute trauma of the major arterial vessels of the neck. Interpreted by: Massimo Dejesus DO Signed by: Massimo Dejesus DO 10/01/22 Final result Normal [facility] No acute trauma of the major arterial vessels of the neck. [facility] EXAMINATION: CTA OF THE NECK 10/01/2022 4:18 pm TECHNIQUE: CTA of the neck was performed with the administration of intravenous contrast. Multiplanar reformatted images are provided for review. MIP images are provided for review. Stenosis of the internal carotid arteries measured using NASCET criteria. Automated exposure control, iterative reconstruction, and/or weight based adjustment of the mA/kV was utilized to reduce the radiation dose to as low as reasonably achievable. COMPARISON: None. HISTORY: ORDERING SYSTEM PROVIDED HISTORY: multiple deep facial fxs s/p fall TECHNOLOGIST PROVIDED HISTORY: multiple deep facial fxs s/p fall Decision Support Exception - unselect if not a suspected or confirmed emergency medical condition->Emergenc y Medical Condition (MA) FINDINGS: AORTIC ARCH/ARCH VESSELS: No dissection or arterial injury. No significant stenosis of the brachiocephalic or subclavian arteries. CAROTID ARTERIES: No dissection, arterial injury, or hemodynamically significant stenosis by NASCET criteria. VERTEBRAL ARTERIES: No dissection, arterial injury, or significant stenosis. SOFT TISSUES: No active contrast extravasation. BONES: Please see separate head, face and cervical spine CT reports. [facility] Massimo Dejesus DO - 10/01/2022 EXAMINATION: CTA OF THE NECK 10/01/2022 4:18 pm TECHNIQUE: CTA of the neck was performed with the administration of intravenous contrast. Multiplanar reformatted images are provided for review. MIP images are provided for review. Stenosis of the internal carotid arteries measured using NASCET criteria. Automated exposure control, iterative reconstruction, and/or weight based adjustment of the mA/kV was utilized to reduce the radiation dose to as low as reasonably achievable. COMPARISON: None. HISTORY: ORDERING SYSTEM PROVIDED HISTORY: multiple deep facial fxs s/p fall TECHNOLOGIST PROVIDED HISTORY: multiple deep facial fxs s/p fall Decision Support Exception - unselect if not a suspected or confirmed emergency medical condition->Emergenc y Medical Condition (MA) FINDINGS: AORTIC ARCH/ARCH VESSELS: No dissection or arterial injury. No significant stenosis of the brachiocephalic or subclavian arteries. CAROTID ARTERIES: No dissection, arterial injury, or hemodynamically significant stenosis by NASCET criteria. VERTEBRAL ARTERIES: No dissection, arterial injury, or significant stenosis. SOFT TISSUES: No active contrast extravasation. BONES: Please see separate head, face and cervical spine CT reports. IMPRESSION: No acute trauma of the major arterial vessels of the neck. [facility] [employer] [facility] CTA NECK W CONTRASTOrdered B y: Massimo Sessions on 10-01-2022 [facility] [employer] [facility] Work Phone: No Panel Informationon 10-01 Radiology Study observation (narrative) [facility]okoreWE[facility] H[facility]PITALMatchbook [facility] Acute comminuted displaced intra-articular fracture of the distal left radius (Galeazzi). No acute osseous abnormality identified involving the left elbow. No acute osseous abnormality identified involving the right femur or left tib fib. [facility] EXAMINATION: XRAY VIEWS OF THE LEFT WRIST; TWO XRAY VIEWS OF THE LEFT ELBOW; TWO XRAY VIEWS OF THE LEFT FOREARM; XRAY VIEWS OF THE RIGHT FEMUR; XRAY VIEWS OF THE LEFT TIBIA AND FIBULA 10/01/2022 10:32 am COMPARISON: None. HISTORY: ORDERING SYSTEM PROVIDED HISTORY: trauma TECHNOLOGIST PROVIDED HISTORY: trauma FINDINGS: Left elbow: Joint spaces are maintained. No fracture or dislocation identified. No joint effusion. No soft tissue abnormality identified. Left forearm: Comminuted displaced intra-articular fracture involving the distal radius. There is 8.4 mm dorsal displacement of the distal radial fracture. Positive ulnar variance. Osteophyte formation subjacent to the distal radioulnar joint. Left wrist: No additional fractures are seen. Narrowing of the 1st CMC joint with associated subjacent osteophytes. Right femur: No fracture dislocation identified. Over coverage of the right femoral head by the acetabulum. Osteophyte formation involving the right acetabulum. No bony destructive process is seen. No soft tissue abnormality identified. Left tib fib: No fracture dislocation identified. No bony destructive process. No soft tissue abnormality identified. [facility] Juan David Phipps MD - 10/01/2022 EXAMINATION: XRAY VIEWS OF THE LEFT WRIST; TWO XRAY VIEWS OF THE LEFT ELBOW; TWO XRAY VIEWS OF THE LEFT FOREARM; XRAY VIEWS OF THE RIGHT FEMUR; XRAY VIEWS OF THE LEFT TIBIA AND FIBULA 10/01/2022 10:32 am COMPARISON: None. HISTORY: ORDERING SYSTEM PROVIDED HISTORY: trauma TECHNOLOGIST PROVIDED HISTORY: trauma FINDINGS: Left elbow: Joint spaces are maintained. No fracture or dislocation identified. No joint effusion. No soft tissue abnormality identified. Left forearm: Comminuted displaced intra-articular fracture involving the distal radius. There is 8.4 mm dorsal displacement of the distal radial fracture. Positive ulnar variance. Osteophyte formation subjacent to the distal radioulnar joint. Left wrist: No additional fractures are seen. Narrowing of the 1st CMC joint with associated subjacent osteophytes. Right femur: No fracture dislocation identified. Over coverage of the right femoral head by the acetabulum. Osteophyte formation involving the right acetabulum. No bony destructive process is seen. No soft tissue abnormality identified. Left tib fib: No fracture dislocation identified. No bony destructive process. No soft tissue abnormality identified. IMPRESSION: Acute comminuted displaced intra-articular fracture of the distal left radius (Galeazzi). No acute osseous abnormality identified involving the left elbow. No acute osseous abnormality identified involving the right femur or left tib fib. [facility] 1. No active pulmonary disease. 2. No acute intra-abdominal or pelvic abnormality. 3. No acute traumatic abnormality involving the thoracic or lumbar spine. [facility] EXAMINATION: CT OF THE LUMBAR SPINE WITHOUT CONTRAST; CT OF THE THORACIC SPINE WITHOUT CONTRAST; CT OF THE CHEST, ABDOMEN, AND PELVIS WITH CONTRAST 10/01/2022 10:14 am TECHNIQUE: CT of the lumbar spine was performed without the administration of intravenous contrast. Multiplanar reformatted images are provided for review. Adjustment of mA and/or kV according to patient size was utilized. Automated exposure control, iterative reconstruction, and/or weight based adjustment of the mA/kV was utilized to reduce the radiation dose to as low as reasonably achievable.; CT of the thoracic spine was performed without the administration of intravenous contrast. Multiplanar reformatted images are provided for review. Automated exposure control, iterative reconstruction, and/or weight based adjustment of the mA/kV was utilized to reduce the radiation dose to as low as reasonably achievable.; CT of the chest, abdomen and pelvis was performed with the administration of intravenous contrast. Multiplanar reformatted images are provided for review. Automated exposure control, iterative reconstruction, and/or weight based adjustment of the mA/kV was utilized to reduce the radiation dose to as low as reasonably achievable. COMPARISON: None. HISTORY: ORDERING SYSTEM PROVIDED HISTORY: TRAUMA TECHNOLOGIST PROVIDED HISTORY: Trauma trauma; ORDERING SYSTEM PROVIDED HISTORY: trauma TECHNOLOGIST PROVIDED HISTORY: trauma; ORDERING SYSTEM PROVIDED HISTORY: Trauma TECHNOLOGIST PROVIDED HISTORY: Trauma FINDINGS: CT SCAN CHEST: Mediastinum: There are a few less than 1 cm mediastinal lymph nodes but no lymphadenopathy is seen. The thoracic aorta is not aneurysmal. No dissection is seen. There are no defects involving the major pulmonary arteries. Lungs/pleura: The lung parenchyma demonstrates no focal infiltrates or masses. No pleural effusions or pneumothoraces are seen. Bones/soft tissues: No acute bony abnormalities are noted. CT SCAN ABDOMEN AND PELVIS: Organs: The liver, spleen, gallbladder, pancreas and adrenal glands appear unremarkable. There is symmetric enhancement of the kidneys. No hydronephrosis is seen. No ureteral or bladder calculi are seen. GI/Bowel: Evaluation of the bowel is limited as no enteric contrast was given. No dilated loops of bowel are seen. There is scattered diverticular disease involving the colon but no findings to suggest active inflammation. I do not see a dilated appendix. Pelvis: No pelvic masses or fluid collections are seen. Peritoneum/Retroper itoneum: The abdominal aorta is not aneurysmal. There are shotty mesenteric and retroperitoneal lymph nodes but no lymphadenopathy is seen. Bones/Soft Tissues: No acute bony abnormalities are noted. CT SCAN THORACIC AND LUMBAR SPINE: BONES/ALIGNMENT: There is normal alignment of the spine. The vertebral body heights are maintained. No osseous destructive lesion is seen. There is non osseous union involving the left transverse process of L1. No acute fractures are seen. DEGENERATIVE CHANGES: There is degenerative disc disease most pronounced at L5-S1. SOFT TISSUES/RETROPERITO NEUM: No paraspinal mass is seen. [facility] Chuy Roy MD - 10/01/2022 EXAMINATION: CT OF THE LUMBAR SPINE WITHOUT CONTRAST; CT OF THE THORACIC SPINE WITHOUT CONTRAST; CT OF THE CHEST, ABDOMEN, AND PELVIS WITH CONTRAST 10/01/2022 10:14 am TECHNIQUE: CT of the lumbar spine was performed without the administration of intravenous contrast. Multiplanar reformatted images are provided for review. Adjustment of mA and/or kV according to patient size was utilized. Automated exposure control, iterative reconstruction, and/or weight based adjustment of the mA/kV was utilized to reduce the radiation dose to as low as reasonably achievable.; CT of the thoracic spine was performed without the administration of intravenous contrast. Multiplanar reformatted images are provided for review. Automated exposure control, iterative reconstruction, and/or weight based adjustment of the mA/kV was utilized to reduce the radiation dose to as low as reasonably achievable.; CT of the chest, abdomen and pelvis was performed with the administration of intravenous contrast. Multiplanar reformatted images are provided for review. Automated exposure control, iterative reconstruction, and/or weight based adjustment of the mA/kV was utilized to reduce the radiation dose to as low as reasonably achievable. COMPARISON: None. HISTORY: ORDERING SYSTEM PROVIDED HISTORY: TRAUMA TECHNOLOGIST PROVIDED HISTORY: Trauma trauma; ORDERING SYSTEM PROVIDED HISTORY: trauma TECHNOLOGIST PROVIDED HISTORY: trauma; ORDERING SYSTEM PROVIDED HISTORY: Trauma TECHNOLOGIST PROVIDED HISTORY: Trauma FINDINGS: CT SCAN CHEST: Mediastinum: There are a few less than 1 cm mediastinal lymph nodes but no lymphadenopathy is seen. The thoracic aorta is not aneurysmal. No dissection is seen. There are no defects involving the major pulmonary arteries. Lungs/pleura: The lung parenchyma demonstrates no focal infiltrates or masses. No pleural effusions or pneumothoraces are seen. Bones/soft tissues: No acute bony abnormalities are noted. CT SCAN ABDOMEN AND PELVIS: Organs: The liver, spleen, gallbladder, pancreas and adrenal glands appear unremarkable. There is symmetric enhancement of the kidneys. No hydronephrosis is seen. No ureteral or bladder calculi are seen. GI/Bowel: Evaluation of the bowel is limited as no enteric contrast was given. No dilated loops of bowel are seen. There is scattered diverticular disease involving the colon but no findings to suggest active inflammation. I do not see a dilated appendix. Pelvis: No pelvic masses or fluid collections are seen. Peritoneum/Retroper itoneum: The abdominal aorta is not aneurysmal. There are shotty mesenteric and retroperitoneal lymph nodes but no lymphadenopathy is seen. Bones/Soft Tissues: No acute bony abnormalities are noted. CT SCAN THORACIC AND LUMBAR SPINE: BONES/ALIGNMENT: There is normal alignment of the spine. The vertebral body heights are maintained. No osseous destructive lesion is seen. There is non osseous union involving the left transverse process of L1. No acute fractures are seen. DEGENERATIVE CHANGES: There is degenerative disc disease most pronounced at L5-S1. SOFT TISSUES/RETROPERITO NEUM: No paraspinal mass is seen. IMPRESSION: 1. No active pulmonary disease. 2. No acute intra-abdominal or pelvic abnormality. 3. No acute traumatic abnormality involving the thoracic or lumbar spine. [facility] Radiology Study observation (narrative) [facility] Radiology Study observation (narrative) [facility] Radiology Study observation (narrative) [facility] No Panel InformationOrdered By: Juan David Phipps on 10-01-2022 [facility] Work Phone: No Panel InformationOrdered By: Chuy Roy on 10-01-2022 [facility] Work Phone: POC Glucose Fingerstickon Glucose [Mass/Vol] 113 mg/dL High 75 - 110 mg/dL [facility] Interpretation and review of laboratory results Abnormal [facility] TROP/MYOGLOBINon 10-01-2022 Interpretation and review of laboratory results Abnormal [facility] Myoglobin [Mass/Vol] 161 ng/mL High 28 - 72 ng/mL [facility] Troponin I.cardiac High sensitivity method [Mass/Vol] 9 ng/L 0 - 22 ng/L [facility] Comment on above: High Sensitivity Tro ponin values cannot be compared with other Troponin methodologies. [facility] TYPE AND SCREENon 10-01-2022 ABO and Rh group Nom (Bld) Blood group A Rh(D) positive [facility] Arm Band Number BE [id number] [facility] Blood Bank Sample Expiration 10/04/2022,2359 [facility] Blood group antibodies identified Nom Negative [facility] Trauma Panelon 10-01-2022 Anion gap [Moles/Vol] 14 mmol/L 9 - 17 mmol/L [facility] aPTT Coag (Bld) [Time] 25.0 s [facility] Comment on above: IV Heparin Therapy Range: 66.0-92.0 sec Blood Bank Specimen BILL FOR SERVICES PERFORMED [facility] Carboxyhemoglobin (Bld) [Mass fraction] 1.5 % 0 - 5 % [facility] Comment on above: Reference Range: Non-Smokers 0-2% Average Smoker 2-4% Heavy Smoker <10% Chloride [Moles/Vol] 107 mmol/L 98 - 107 mmol/L [facility] CO2 [Moles/Vol] 20 mmol/L 20 - 31 mmol/L [facility] Creatinine [Mass/Vol] 1.2 mg/dL 0.7 - 1.2 mg/d L [facility] Erythrocyte distribution width (RBC) [Ratio] 11.6 % Low 11.8 - 14.4 % [facility] Ethanol percent <0.010 NINF - 0.010 % [facility] Ethanolamine [Mass/Vol] mg/dL NINF - 10 mg/dL [facility] GFR/1.73 sq M.predicted MDRD (S/P/Bld) [Vol rate/Area] 41 mL/min/{1.73_m2} Low - PINF [facility] Comment on above: These results are not intended for use in patients <18 years of age. eGFR results are calculated without a race factor using the 2020 CKD-EPI equation. Careful clinical correlation is recommended, particularly when comparing to results calculated using previous equations. The CKD-EPI equation is less accurate in patients with extremes of muscle mass, extra-renal metabolism of creatine, excessive creatine ingestion, or following therapy that affects renal tubular secretion. Glucose [Mass/Vol] 141 mg/dL High 70 - 99 mg/dL [facility] HCG ( test) Ql CANCEL PER ER [facility] HCO3 (Bld) [Moles/Vol] 20.9 mmol/L Low 24 - 30 mmol/L [facility] Hematocrit (Bld) [Volume fraction] 41.2 % 40.7 - 50.3 % [facility] Hemoglobin (Bld) [Mass/Vol] 14.3 g/dL 13.0 - 17.0 g/dL [facility] INR Coag (PPP) [Relative time] 1.0 {INR} [facility] Comment on above: Therapeutic Range: Moderate Anticoagulant Intensity: INR = 2.0-3.0 High Anticoagulant Intensity: INR = 2.5-3.5 Interpretation and review of laboratory results Abnormal [facility] MCH (RBC) [Entitic mass] 32.1 pg 25.2 - 33.5 pg [facility] MCHC (RBC) [Mass/Vol] 34.7 g/dL 28.4 - 34.8 g/dL [facility] MCV (RBC) [Entitic vol] 92.4 fL 82.6 - 102.9 fL [facility] Negative Base Excess, Peter 3.4 mmol/L High 0.0 - 2.0 mmol/L [facility] Nucleated RBC/100 WBC (Bld) [Ratio] 0.0 % 0.0 per 100 WBC [facility] Oxygen saturation in Blood 83.1 % 60.0 - 85.0 % [facility] Oxygen/Inspired gas Respiratory system --on ventilator INFORMATION NOT PROVIDED [facility] pCO2, Peter 37.3 Low [facility] pH, Peter 7.367 7.320 - 7.420 [facility] Platelet mean volume (Bld) [Entitic vol] 8.8 fL 8.1 - 13.5 fL [facility] Platelets (Bld) [#/Vol] 215 10*3/uL [facility] pO2, Peter 49.5 [facility] Potassium [Moles/Vol] 4.0 mmol/L 3.7 - 5.3 mmol/L [facility] PT Coag (PPP) [Time] 13.1 s [facility] RBC (Bld) [#/Vol] 4.46 10*6/uL 4.21 - 5.7 7 m/uL [facility] Sodium [Moles/Vol] 141 mmol/L 135 - 144 mmol/L [facility] Urea nitrogen [Mass/Vol] 27 mg/dL High 6 - 20 mg/dL [facility] Comment on above: QA FLAGS AND/OR RANG ES MODIFIED BY DEMOGRAPHIC UPDATE ON 10/01 AT 1157 WBC other (Bld) [#/Vol] 11.4 High [facility] Trauma Profileon 10-01-2022 Anion gap [Moles/Vol] 14 mmol/L Normal 9-17 [facility] Comment on above: Performed By: #### B CUL2 #### [address] [address] Assistant Hvac Mechanic: Joe Hess MD Chloride [Moles/Vol] 107 mmol/L Normal 98-107 [facility] Comment on above: Performed By: #### B CUL2 #### [address] [address] Assistant Hvac Mechanic: Joe Hess MD CO2 [Moles/Vol] 20 mmol/L Normal 20-31 [facility] Comment on above: Performed By: #### B CUL2 #### [facility] [address] [place] [id number] Assistant Hvac Mechanic: Joe Hess MD Creatinine [Mass/Vol] 1.2 mg/dL Normal 0.7-1.2 [facility] Comment on above: Performed By: #### B CUL2 #### [address] [address] Assistant Hvac Mechanic: Joe Hess MD Ethanol [Mass/Vol] mg/dL Normal <10 [facility] Comment on above: Performed By: #### B CUL2 #### [facility] [address] [place] [address] Assistant Hvac Mechanic: Joe Hess MD Ethanol percent <0.010 Normal <0.010 [facility] Comment on above: Performed By: #### B CUL2 #### [address] [address] Assistant Hvac Mechanic: Joe Hess MD GFR/1.73 sq M.predicted among non-blacks MDRD (S/P/Bld) [Vol rate/Area] 41 mL/min/{1.73_m2} Low >60 [facility] Comment on above: Result Comment: These results are not intended for use in patients <18 years of age. eGFR results are calculated without a race factor using the 2020 CKD-EPI equation. Careful clinical correlation is recommended, particularly when comparing to results calculated using previous equations. The CKD-EPI equation is less accurate in patients with extremes of muscle mass, extra-renal metabolism of creatine, excessive creatine ingestion, or following therapy that affects renal tubular secretion. Performed By: #### B CUL2 #### [address] [address] Assistant Hvac Mechanic: Joe Hess MD Glucose [Mass/Vol] 141 mg/dL High 70-99 [facility] Comment on above: Performed By: #### B CUL2 #### [address] [address] Assistant Hvac Mechanic: Joe Hess MD Potassium [Moles/Vol] 4.0 mmol/L Normal 3.7-5.3 [facility] Comment on above: Performed By: #### B CUL2 #### [address] [address] Assistant Hvac Mechanic: Joe Hess MD Sodium [Moles/Vol] 141 mmol/L Normal 135-144 [facility] Comment on above: Performed By: #### B CUL2 #### [address] [address] Assistant Hvac Mechanic: Joe Hess MD Urea nitrogen [Mass/Vol] 27 mg/dL High 6-20 [facility] Comment on above: Result Comment: QA F LAGS AND/OR RANGES MODIFIED BY DEMOGRAPHIC UPDATE ON 10/01 AT 1157 Performed By: #### B CUL2 #### [address] [address] Assistant Hvac Mechanic: Joe Hess MD aPTT Coag (Bld) [Time] 25.0 s Normal 23.0-36.5 [facility] Comment on above: Result Comment: IV Heparin Therapy Range: 66.0-92.0 sec Performed By: #### B CUL2 #### [place] [address] Assistant Hvac Mechanic: Joe Hess MD INR Coag (PPP) [Relative time] 1.0 {INR} Normal [facility] Comment on above: Result Comment: Therapeutic Range: Moderate Anticoagulant Intensity: INR = 2.0-3.0 High Anticoagulant Intensity: INR = 2.5-3.5 Performed By: #### B CUL2 #### [address] [address] Assistant Hvac Mechanic: Joe Hess MD PT Coag (PPP) [Time] 13.1 s Normal 11.7-14.9 [facility] Comment on above: Performed By: #### B CUL2 #### [place] [address] Assistant Hvac Mechanic: Joe Hess MD Body Temp. 37.0 Normal [facility] Comment on above: Performed By: #### B CUL2 #### [place] [address] Assistant Hvac Mechanic: Joe Hess MD Carboxy Hgb 1.5 % Normal 0-5 [facility] Comment on above: Result Comment: Reference Range: Non-Smokers 0-2% Average Smoker 2-4% Heavy Smoker <10% Performed By: #### B CUL2 #### [address] [address] Assistant Hvac Mechanic: Joe Hess MD FIO2 INFORMATION NOT PROVIDED Normal [facility] Comment on above: Performed By: #### B CUL2 #### [address] [address] Assistant Hvac Mechanic: Joe Hess MD HCO3 (Bld) [Moles/Vol] 20.9 mmol/L Low 24-30 [facility] Comment on above: Performed By: #### B CUL2 #### [address] [address] Assistant Hvac Mechanic: Joe Hess MD Negative Base Excess 3.4 mmol/L High 0.0-2.0 [facility] Comment on above: Performed By: #### B CUL2 #### [address] [address] Assistant Hvac Mechanic: Joe Hess MD Oxygen saturation in Blood 83.1 % Normal 60.0-85.0 [facility] Comment on above: Performed By: #### B CUL2 #### [address] [address] Assistant Hvac Mechanic: Joe Hess MD pCO2 37.3 mm Hg Low 39-55 [facility] Comment on above: Performed By: #### B CUL2 #### [address] [address] [address] Assistant Hvac Mechanic: Joe Hess MD pH (Bld) 7.367 [pH] Normal 7.320-7.420 [facility] Comment on above: Performed By: #### B CUL2 #### [address] [address] Assistant Hvac Mechanic: Joe Hess MD pO2 49.5 mm Hg Normal 30-50 [facility] Comment on above: Performed By: #### B CUL2 #### [address] [address] Assistant Hvac Mechanic: Joe Hess MD Erythrocyte distribution width (RBC) [Ratio] 11.6 % Low 11.8-14.4 [facility] Comment on above: Performed By: #### B CUL2 #### [address] [address] Assistant Hvac Mechanic: Joe Hess MD Hematocrit (Bld) [Volume fraction] 41.2 % Normal 40.7-50.3 [facility] Comment on above: Performed By: #### B CUL2 #### [address] [address] Assistant Hvac Mechanic: Joe Hess MD Hemoglobin (Bld) [Mass/Vol] 14.3 g/dL Normal 13.0-17.0 [facility] Comment on above: Performed By: #### B CUL2 #### [address] [address] Assistant Hvac Mechanic: Joe Hess MD MCH (RBC) [Entitic mass] 32.1 pg Normal 25.2-33.5 [facility] Comment on above: Performed By: #### B CUL2 #### [address] [address] Assistant Hvac Mechanic: Joe Hess MD MCHC (RBC) [Mass/Vol] 34.7 g/dL Normal 28.4-34.8 [facility] Comment on above: Performed By: #### B CUL2 #### [address] [address] Assistant Hvac Mechanic: Joe Hess MD MCV (RBC) [Entitic vol] 92.4 fL Normal 82.6-102.9 [facility] Comment on above: Performed By: #### B CUL2 #### [address] [address] Assistant Hvac Mechanic: Joe Hess MD NRBC Automated 0.0 per 100 WBC Normal 0.0 [facility] Comment on above: Performed By: #### B CUL2 #### [address] [address] Assistant Hvac Mechanic: Joe Hess MD Platelet mean volume (Bld) [Entitic vol] 8.8 fL Normal 8.1-13.5 [facility] Comment on above: Performed By: #### B CUL2 #### [address] [address] Assistant Hvac Mechanic: Joe Hess MD Platelets (Bld) [#/Vol] 215 10*3/uL Normal 138-453 [facility] Comment on above: Performed By: #### B CUL2 #### [address] [address] Assistant Hvac Mechanic: Joe Hess MD RBC (Bld) [#/Vol] 4.46 10*6/uL Normal 4.21-5.77 [facility] Comment on above: Performed By: #### B CUL2 #### [address] [address] Assistant Hvac Mechanic: Joe Hess MD WBC (Bld) [#/Vol] 11.4 10*3/uL High 3.5-11.3 [facility] Comment on above: Performed By: #### B CUL2 #### [address] [address] Assistant Hvac Mechanic: Joe Hess MD Blood Bank BILL FOR SERVICES PERFORMED Normal [facility] Comment on above: Performed By: #### B CUL2 #### [address] [address] Assistant Hvac Mechanic: Joe Hess MD Trop/Myoglobinon 08-12-2023 Myoglobin [Mass/Vol] 161 ng/mL High 28-72 [facility] Comment on above: Performed By: #### B CUL2 #### [facility] [place] [address] Assistant Hvac Mechanic: Joe Hess MD Troponin, High Sens 9 ng/L Normal 0-22 [facility] Comment on above: Result Comment: High Sensitivity Troponin values cannot be compared with other Troponin methodologies. Performed By: #### B CUL2 #### [facility] [address] [place] [address] Assistant Hvac Mechanic: Joe Hess MD Type + Screenon 10-01-2022 Type + Screen Sample Expiration 10/04/2022,2359 Arm Band Number [id number] ABO/Rh(D) A POSITIVE Antibody Screen NEGATIVE Normal [facility] Comment on above: Performed By: #### T YS #### [facility] [address] [place] [address] Assistant Hvac Mechanic: Joe Hess MD XR ELBOW LEFT (2 VIEWS)on XR ELBOW LEFT (2 VIEWS) EXAMINATION: XRAY VIEWS OF THE LEFT WRIST; TWO XRAY VIEWS OF THE LEFT ELBOW; TWO XRAY VIEWS OF THE LEFT FOREARM; XRAY VIEWS OF THE RIGHT FEMUR; XRAY VIEWS OF THE LEFT TIBIA AND FIBULA 10/01/2022 10:32 am COMPARISON: None. HISTORY: ORDERING SYSTEM PROVIDED HISTORY: trauma TECHNOLOGIST PROVIDED HISTORY: trauma FINDINGS: Left elbow: Joint spaces are maintained. No fracture or dislocation identified. No joint effusion. No soft tissue abnormality identified. Left forearm: Comminuted displaced intra-articular fracture involving the distal radius. There is 8.4 mm dorsal displacement of the distal radial fracture. Positive ulnar variance. Osteophyte formation subjacent to the distal radioulnar joint. Left wrist: No additional fractures are seen. Narrowing of the 1st CMC joint with associated subjacent osteophytes. Right femur: No fracture dislocation identified. Over coverage of the right femoral head by the acetabulum. Osteophyte formation involving the right acetabulum. No bony destructive process is seen. No soft tissue abnormality identified. Left tib fib: No fracture dislocation identified. No bony destructive process. No soft tissue abnormality identified. IMPRESSION: Acute comminuted displaced intra-articular fracture of the distal left radius (Galeazzi). No acute osseous abnormality identified involving the left elbow. No acute osseous abnormality identified involving the right femur or left tib fib. Interpreted by: Juan David Phipps MD Signed by: Juan David Phipps MD 10/01/22 Final result Normal [facility] XR FEMUR RIGHT (MIN 2 VIEWS) on 10-01-2022 XR FEMUR RIGHT (MIN 2 VIEWS) EXAMINATION: XRAY VIEWS OF THE LEFT WRIST; TWO XRAY VIEWS OF THE LEFT ELBOW; TWO XRAY VIEWS OF THE LEFT FOREARM; XRAY VIEWS OF THE RIGHT FEMUR; XRAY VIEWS OF THE LEFT TIBIA AND FIBULA 10/01/2022 10:32 am COMPARISON: None. HISTORY: ORDERING SYSTEM PROVIDED HISTORY: trauma TECHNOLOGIST PROVIDED HISTORY: trauma FINDINGS: Left elbow: Joint spaces are maintained. No fracture or dislocation identified. No joint effusion. No soft tissue abnormality identified. Left forearm: Comminuted displaced intra-articular fracture involving the distal radius. There is 8.4 mm dorsal displacement of the distal radial fracture. Positive ulnar variance. Osteophyte formation subjacent to the distal radioulnar joint. Left wrist: No additional fractures are seen. Narrowing of the 1st CMC joint with associated subjacent osteophytes. Right femur: No fracture dislocation identified. Over coverage of the right femoral head by the acetabulum. Osteophyte formation involving the right acetabulum. No bony destructive process is seen. No soft tissue abnormality identified. Left tib fib: No fracture dislocation identified. No bony destructive process. No soft tissue abnormality identified. IMPRESSION: Acute comminuted displaced intra-articular fracture of the distal left radius (Galeazzi). No acute osseous abnormality identified involving the left elbow. No acute osseous abnormality identified involving the right femur or left tib fib. Interpreted by: Juan David Phipps MD Signed by: Juan David Phipps MD 10/01/22 Final result Normal [facility] XR RADIUS ULNA LEFT (2 VIEWS )on 10-01-2022 XR RADIUS ULNA LEFT (2 VIEWS) EXAMINATION: XRAY VIEWS OF THE LEFT WRIST; TWO XRAY VIEWS OF THE LEFT ELBOW; TWO XRAY VIEWS OF THE LEFT FOREARM; XRAY VIEWS OF THE RIGHT FEMUR; XRAY VIEWS OF THE LEFT TIBIA AND FIBULA 10/01/2022 10:32 am COMPARISON: None. HISTORY: ORDERING SYSTEM PROVIDED HISTORY: trauma TECHNOLOGIST PROVIDED HISTORY: trauma FINDINGS: Left elbow: Joint spaces are maintained. No fracture or dislocation identified. No joint effusion. No soft tissue abnormality identified. Left forearm: Comminuted displaced intra-articular fracture involving the distal radius. There is 8.4 mm dorsal displacement of the distal radial fracture. Positive ulnar variance. Osteophyte formation subjacent to the distal radioulnar joint. Left wrist: No additional fractures are seen. Narrowing of the 1st CMC joint with associated subjacent osteophytes. Right femur: No fracture dislocation identified. Over coverage of the right femoral head by the acetabulum. Osteophyte formation involving the right acetabulum. No bony destructive process is seen. No soft tissue abnormality identified. Left tib fib: No fracture dislocation identified. No bony destructive process. No soft tissue abnormality identified. IMPRESSION: Acute comminuted displaced intra-articular fracture of the distal left radius (Galeazzi). No acute osseous abnormality identified involving the left elbow. No acute osseous abnormality identified involving the right femur or left tib fib. Interpreted by: Juan David Phipps MD Signed by: Juan David Phipps MD 10/01/22 Final result Normal [facility] XR TIBIA FIBULA LEFT (2 VIEW S)on 10-01-2022 XR TIBIA FIBULA LEFT (2 VIEWS) EXAMINATION: XRAY VIEWS OF THE LEFT WRIST; TWO XRAY VIEWS OF THE LEFT ELBOW; TWO XRAY VIEWS OF THE LEFT FOREARM; XRAY VIEWS OF THE RIGHT FEMUR; XRAY VIEWS OF THE LEFT TIBIA AND FIBULA 10/01/2022 10:32 am COMPARISON: None. HISTORY: ORDERING SYSTEM PROVIDED HISTORY: trauma TECHNOLOGIST PROVIDED HISTORY: trauma FINDINGS: Left elbow: Joint spaces are maintained. No fracture or dislocation identified. No joint effusion. No soft tissue abnormality identified. Left forearm: Comminuted displaced intra-articular fracture involving the distal radius. There is 8.4 mm dorsal displacement of the distal radial fracture. Positive ulnar variance. Osteophyte formation subjacent to the distal radioulnar joint. Left wrist: No additional fractures are seen. Narrowing of the 1st CMC joint with associated subjacent osteophytes. Right femur: No fracture dislocation identified. Over coverage of the right femoral head by the acetabulum. Osteophyte formation involving the right acetabulum. No bony destructive process is seen. No soft tissue abnormality identified. Left tib fib: No fracture dislocation identified. No bony destructive process. No soft tissue abnormality identified. IMPRESSION: Acute comminuted displaced intra-articular fracture of the distal left radius (Galeazzi). No acute osseous abnormality identified involving the left elbow. No acute osseous abnormality identified involving the right femur or left tib fib. Interpreted by: Juan David Phipps MD Signed by: Juan David Phipps MD 10/01/22 Final result Normal [facility] XR WRIST LEFT (MIN 3 VIEWS)o n 10-01-2022 XR WRIST LEFT (MIN 3 VIEWS) EXAMINATION: XRAY VIEWS OF THE LEFT WRIST 10/01/2022 2:05 pm COMPARISON: October 01, 2022 at 1326 hours HISTORY: ORDERING SYSTEM PROVIDED HISTORY: Post-Splint TECHNOLOGIST PROVIDED HISTORY: Post-Splint Reason for Exam: fx,, post splint port at 2pm FINDINGS: Post reduction radiographs of the left wrist. Stable appearing fracture of the distal radius which is in near anatomic alignment on the AP view and in anatomic alignment on the lateral radiograph. No additional fractures are seen. IMPRESSION: Post reduction radiographs of the distal radius. Anatomic alignment of the distal radial fracture on the lateral radiograph. Interpreted by: Juan David Phipps MD Signed by: Juan David Phipps MD 10/01/22 Final result Normal [facility] Post reduction radiographs of the distal radius. Anatomic alignment of the distal radial fracture on the lateral radiograph. [facility] EXAMINATION: XRAY VIEWS OF THE LEFT WRIST 10/01/2022 2:05 pm COMPARISON: October 01, 2022 at 1326 hours HISTORY: ORDERING SYSTEM PROVIDED HISTORY: Post-Splint TECHNOLOGIST PROVIDED HISTORY: Post-Splint Reason for Exam: fx,, post splint port at 2pm FINDINGS: Post reduction radiographs of the left wrist. Stable appearing fracture of the distal radius which is in near anatomic alignment on the AP view and in anatomic alignment on the lateral radiograph. No additional fractures are seen. [facility] Juan David Phipps MD - 10/01/2022 EXAMINATION: XRAY VIEWS OF THE LEFT WRIST 10/01/2022 2:05 pm COMPARISON: October 01, 2022 at 1326 hours HISTORY: ORDERING SYSTEM PROVIDED HISTORY: Post-Splint TECHNOLOGIST PROVIDED HISTORY: Post-Splint Reason for Exam: fx,, post splint port at 2pm FINDINGS: Post reduction radiographs of the left wrist. Stable appearing fracture of the distal radius which is in near anatomic alignment on the AP view and in anatomic alignment on the lateral radiograph. No additional fractures are seen. IMPRESSION: Post reduction radiographs of the distal radius. Anatomic alignment of the distal radial fracture on the lateral radiograph. [facility] XR WRIST LEFT (MIN 3 VIEWS) EXAMINATION: 2 XRAY VIEWS OF THE LEFT WRIST 10/01/2022 2:04 pm COMPARISON: 10/01/2022 HISTORY: ORDERING SYSTEM PROVIDED HISTORY: Post-Reduction TECHNOLOGIST PROVIDED HISTORY: Post-Reduction Reason for Exam: fx, post reduction port at 130pm FINDINGS: There is improved alignment of the acute comminuted intra-articular fracture involving the distal radial metaphysis. There is no dislocation. The bones are normally mineralized. There are no bony destructive lesions. Moderate polyarticular osteoarthritis is noted. Soft tissue swelling surrounds the wrist. IMPRESSION: 1. Improved alignment. Interpreted by: Dieudonne Manzo MD Signed by: Dieudonne Manzo MD 10/01/22 Final result Normal [facility] 1. Improved alignment. [facility] EXAMINATION: 2 XRAY VIEWS OF THE LEFT WRIST 10/01/2022 2:04 pm COMPARISON: 10/01/2022 HISTORY: ORDERING SYSTEM PROVIDED HISTORY: Post-Reduction TECHNOLOGIST PROVIDED HISTORY: Post-Reduction Reason for Exam: fx, post reduction port at 130pm FINDINGS: There is improved alignment of the acute comminuted intra-articular fracture involving the distal radial metaphysis. There is no dislocation. The bones are normally mineralized. There are no bony destructive lesions. Moderate polyarticular osteoarthritis is noted. Soft tissue swelling surrounds the wrist. [facility] Dieudonne Manzo MD - 10/01/2022 EXAMINATION: 2 XRAY VIEWS OF THE LEFT WRIST 10/01/2022 2:04 pm COMPARISON: 10/01/2022 HISTORY: ORDERING SYSTEM PROVIDED HISTORY: Post-Reduction TECHNOLOGIST PROVIDED HISTORY: Post-Reduction Reason for Exam: fx, post reduction port at 130pm FINDINGS: There is improved alignment of the acute comminuted intra-articular fracture involving the distal radial metaphysis. There is no dislocation. The bones are normally mineralized. There are no bony destructive lesions. Moderate polyarticular osteoarthritis is noted. Soft tissue swelling surrounds the wrist. IMPRESSION: 1. Improved alignment. [facility] Radiology Study observation (narrative) [facility] Radiology Study observation (narrative) [facility] XR WRIST LEFT (MIN 3 VIEWS) EXAMINATION: XRAY VIEWS OF THE LEFT WRIST; TWO XRAY VIEWS OF THE LEFT ELBOW; TWO XRAY VIEWS OF THE LEFT FOREARM; XRAY VIEWS OF THE RIGHT FEMUR; XRAY VIEWS OF THE LEFT TIBIA AND FIBULA 10/01/2022 10:32 am COMPARISON: None. HISTORY: ORDERING SYSTEM PROVIDED HISTORY: trauma TECHNOLOGIST PROVIDED HISTORY: trauma FINDINGS: Left elbow: Joint spaces are maintained. No fracture or dislocation identified. No joint effusion. No soft tissue abnormality identified. Left forearm: Comminuted displaced intra-articular fracture involving the distal radius. There is 8.4 mm dorsal displacement of the distal radial fracture. Positive ulnar variance. Osteophyte formation subjacent to the distal radioulnar joint. Left wrist: No additional fractures are seen. Narrowing of the 1st CMC joint with associated subjacent osteophytes. Right femur: No fracture dislocation identified. Over coverage of the right femoral head by the acetabulum. Osteophyte formation involving the right acetabulum. No bony destructive process is seen. No soft tissue abnormality identified. Left tib fib: No fracture dislocation identified. No bony destructive process. No soft tissue abnormality identified. IMPRESSION: Acute comminuted displaced intra-articular fracture of the distal left radius (Galeazzi). No acute osseous abnormality identified involving the left elbow. No acute osseous abnormality identified involving the right femur or left tib fib. Interpreted by: Juan David Phipps MD Signed by: Juan David Phipps MD 10/01/22 Final result Normal [facility] XR WRIST LEFT (MIN 3 VIEWS)O rdered By: Dieudonne Manzo on 10-01-2022 [facility] Work Phone: XR WRIST RIGHT (MIN 3 VIEWS) on 10-01-2022 XR WRIST RIGHT (MIN 3 VIEWS) EXAMINATION: 3 XRAY VIEWS OF THE RIGHT WRIST 10/01/2022 1:25 pm COMPARISON: None. HISTORY: ORDERING SYSTEM PROVIDED HISTORY: trauma TECHNOLOGIST PROVIDED HISTORY: trauma FINDINGS: Soft tissues are within normal limits. There is no acute fracture or dislocation. Mild joint space narrowing at the triscaphe and 1st carpometacarpal joints. No bony erosion. IMPRESSION: No evidence of acute osseous abnormality in the right wrist. Interpreted by: Uzma Beckett DO Signed by: Uzma Beckett DO 10/01/22 Final result Normal [facility] No evidence of acute osseous abnormality in the right wrist. [facility] EXAMINATION: 3 XRAY VIEWS OF THE RIGHT WRIST 10/01/2022 1:25 pm COMPARISON: None. HISTORY: ORDERING SYSTEM PROVIDED HISTORY: trauma TECHNOLOGIST PROVIDED HISTORY: trauma FINDINGS: Soft tissues are within normal limits. There is no acute fracture or dislocation. Mild joint space narrowing at the triscaphe and 1st carpometacarpal joints. No bony erosion. [facility] Uzma Beckett DO - 10/01/2022 EXAMINATION: 3 XRAY VIEWS OF THE RIGHT WRIST 10/01/2022 1:25 pm COMPARISON: None. HISTORY: ORDERING SYSTEM PROVIDED HISTORY: trauma TECHNOLOGIST PROVIDED HISTORY: trauma FINDINGS: Soft tissues are within normal limits. There is no acute fracture or dislocation. Mild joint space narrowing at the triscaphe and 1st carpometacarpal joints. No bony erosion. IMPRESSION: No evidence of acute osseous abnormality in the right wrist. [facility] Radiology Study observation (narrative) [facility] CBC AUTO DIFFon 08-16-2021 BASO # 0.0 103/ul Normal 0.0-0.[address] [facility] Comment on above: Performed By: #### C BC #### [facility] [address] [address] [address] Faye Abbasi Basophils/100 WBC (Bld) 0.8 % Normal 0.2-2.[address] [facility] Comment on above: Performed By: #### C BC #### [facility] [address] [address] [address] Faye Abbasi EO # 0.2 103/ul Normal 0.0-0.[address] [facility] Comment on above: Performed By: #### C BC #### [facility] [address] [place] [address] Dr. Faye Abbasi Eosinophils/100 WBC (Bld) 3.8 % Normal 0.9-7.[address] [facility] Comment on above: Performed By: #### C BC #### [facility] [address] [place] [address] Dr. Faye Abbasi Erythrocyte distribution width (RBC) [Ratio] 11.8 % Normal 11.0-15.[address] [facility] Comment on above: Performed By: #### C BC #### [facility] [address] [place] [address] Dr. Faye Abbasi Hematocrit (Bld) [Volume fraction] 41.2 % Critically low 42.0-54.[address] [facility] Comment on above: Performed By: #### C BC #### [facility] [address] [place] [address] Dr. Faye Abbasi Hemoglobin (Bld) [Mass/Vol] 14.1 g/dL Normal 14.0-18.[address] [facility] Comment on above: Performed By: #### C BC #### [facility] [address] [place] [address] Dr. Faye Abbasi IG # 0.01 10e3/ul Normal 0.00-0.[address] [facility] Comment on above: Performed By: #### C BC #### [facility] [address] [place] [address] Dr. Faye Abbasi IG % 0.3 % Normal 0.0-0.5 [facility] Comment on above: Performed By: #### C BC #### [facility] [address] [place] [address] Dr. Faye Abbasi LYMPH # 1.2 103/ul Normal 1.2-3.8 [facility] Comment on above: Performed By: #### C BC #### [facility] [address] [place] [address] Dr. Faye Abbasi Lymphocytes/100 WBC (Bld) 30.0 % Normal 20.5-60.[address] [facility] Comment on above: Performed By: #### C BC #### [facility] [address] [place] [address] Dr. Faye Abbasi MANUAL DIFF REQ NO Normal [facility] Comment on above: Performed By: #### C BC #### [facility] [address] [place] [address] Dr. Faye Abbasi MCH (RBC) [Entitic mass] 31.7 pg Normal 25.9-34.[address] [facility] Comment on above: Performed By: #### C BC #### [facility] [address] [place] [address] Dr. Faye Abbasi MCHC (RBC) [Mass/Vol] 34.2 g/dL Normal 29.9-35.[address] [facility] Comment on above: Performed By: #### C BC #### [facility] [address] [place] [address] Dr. Faye Abbasi MCV (RBC) [Entitic vol] 92.6 fL Normal 80.0-94.[address] [facility] Comment on above: Performed By: #### C BC #### [facility] [address] [place] [address] Dr. Faye Abbasi MONO # 0.3 103/ul Normal 0.3-0.[address] [facility] Comment on above: Performed By: #### C BC #### [facility] [address] [place] [address] Dr. Faye Abbasi Monocytes/100 WBC (Bld) 7.6 % Normal 1.7-12.[address] [facility] Comment on above: Performed By: #### C BC #### [facility] [address] [place] [address] Dr. Faye Abbasi NEUT # 2.3 103/ul Normal 1.4-6.5 [facility] Comment on above: Performed By: #### C BC #### [facility] [address] [place] [address] Dr. Faye Abbasi Neutrophils/100 WBC (Bld) 57.5 % Normal 43.0-75.[address] [facility] Comment on above: Performed By: #### C BC #### [facility] [address] [address] [address] Faye Abbasi Platelet mean volume (Bld) [Entitic vol] 8.8 fL Critically low 9.5-13.[address] [facility] Comment on above: Performed By: #### C BC #### [facility] [address] [address] [address] Faye Abbasi PLT 182 103/ul Normal 150-[address] [facility] Comment on above: Performed By: #### C BC #### [facility] [address] [address] [address] Faye Abbasi RBC 4.45 106/ul Critically low 4.70-6.10 [facility] Comment on above: Performed By: #### C BC #### [facility] [address] [place] [address] Dr. Faye Abbasi WBC 3.9 103/ul Critically low 4.0-11.0 [facility] Comment on above: Performed By: #### C BC #### [facility] [address] [place] [address] Dr. Faye Abbasi LIPID PROFILEon 08-16-2021 CHOL-HDL RATIO NORM SEE BELOW Normal [facility] Comment on above: Result Comment: 3.3 - 4.4 LOW RISK 4.4 - 7.1 AVERAGE RISK 7.1 - 11.0 MODERATE RISK >11.0 HIGH RISK Performed By: #### C MP, LIPID #### [facility] [address] [place] [address] Dr. Faye Abbasi Cholesterol [Mass/Vol] 180 mg/dL Normal <=[address] [facility] Comment on above: Performed By: #### C MP, LIPID #### [facility] [facility] [address] [address] [address] Faye Abbasi Cholesterol in HDL [Mass/Vol] 54 mg/dL Normal 40-[address] [facility] Comment on above: Performed By: #### C MP, LIPID #### [facility] [address] [address] [address] Faye Abbasi Cholesterol in LDL [Mass/Vol] 118.2 mg/dL Normal [facility] Comment on above: Performed By: #### C MP, LIPID #### [facility] [address] [address] [address] Faye Abbasi Cholesterol.total/Cho lesterol in HDL [Mass ratio] 3.3 {ratio} Normal [facility] Comment on above: Performed By: #### C MP, LIPID #### [facility] [address] [address] [address] Faye Abbasi HDL NORMAL > or = 60 mg/dl - LOW CARDIOVASCULAR RISK <40 mg/dl - HIGH CARDIOVASCULAR RISK Normal [facility] Comment on above: Performed By: #### C MP, LIPID #### [facility] [address] [address] [address] Faye Abbasi LDL CALC NORMAL SEE BELOW Normal [facility] Comment on above: Result Comment: <100 mg/dl OPTIMAL 100 - 129 mg/dl NEAR OR ABOVE OPTIMAL 130 - 159 mg/dl BORDERLINE HIGH 160 - 189 mg/dl HIGH >190 mg/dl VERY HIGH Performed By: #### C MP, LIPID #### [facility] [address] [place] [address] Dr. Faye Abbasi Triglyceride [Mass/Vol] 39 mg/dL Normal <=[address] [facility] Comment on above: Performed By: #### C MP, LIPID #### [facility] [address] [place] [address] Dr. Faye Abbasi VLDL CALC 7.8 mg/dL Normal [facility] Comment on above: Performed By: #### C MP, LIPID #### [facility] [address] [address] [address] Faye Abbasi PROF 14(COMP METB)on 022 Albumin [Mass/Vol] 4.1 g/dL Normal 3.4-5.0 [facility] Comment on above: Performed By: #### C MP, LIPID #### [facility] [address] [place] [address] Dr. Faye Abbasi Albumin/Globulin [Mass ratio] 1.4 {ratio} Normal [facility] Comment on above: Performed By: #### C MP, LIPID #### [facility] [address] [address] [address] Faye Abbasi ALP [Catalytic activity/Vol] 90 U/L Normal 46-[address] [facility] Comment on above: Performed By: #### C MP, LIPID #### [facility] [address] [address] [address] Faye Abbasi ALT [Catalytic activity/Vol] 32 U/L Normal 16-[address] [facility] Comment on above: Performed By: #### C MP, LIPID #### [facility] [address] [address] [address] Faye Abbasi Anion gap [Moles/Vol] 10.2 mmol/L Normal [place] Comment on above: Performed By: #### C MP, LIPID #### [facility] [address] [place] [address] Dr. Faye Abbasi AST [Catalytic activity/Vol] 18 U/L Normal 15-[address] [facility] Comment on above: Performed By: #### C MP, LIPID #### [facility] [address] [place] [address] Dr. Faye Abbasi Bilirubin [Mass/Vol] 1.1 mg/dL Critically high 0.2-1.[address] [facility] Comment on above: Performed By: #### C MP, LIPID #### [facility] [address] [address] [address] Faye Abbasi Calcium [Mass/Vol] 8.4 mg/dL Critically low 8.5-10.1 [place] Comment on above: Performed By: #### C MP, LIPID #### [facility] [address] [place] [address] Dr. Faye Abbasi Chloride [Moles/Vol] 105 mmol/L Normal 98-[address] [facility] Comment on above: Performed By: #### C MP, LIPID #### [facility] [address] [address] [address] Faye Abbasi CO2 [Moles/Vol] 27.5 mmol/L Normal 21.0-32.0 [facility] Comment on above: Performed By: #### C MP, LIPID #### [facility] [address] [place] [address] Dr. Faye Abbasi Creatinine [Mass/Vol] 0.96 mg/dL Normal 0.70-1.30 [facility] Comment on above: Performed By: #### C MP, LIPID #### [facility] [address] [address] [address] Faye Abbasi EGFR-AF CHINESE >60 Normal >=60 [facility] Comment on above: Performed By: #### C MP, LIPID #### [facility] [address] [place] [address] Dr. Faye Abbasi EGFR-NON AF CHINESE >60 Normal >=[address] [facility] Comment on above: Performed By: #### C MP, LIPID #### [facility] [address] [place] [address] Dr. Faye Abbasi Globulin (S) [Mass/Vol] 2.9 g/dL Normal [facility] Comment on above: Performed By: #### C MP, LIPID #### [facility] [address] [place] [address] Dr. Faye Abbasi Glucose [Mass/Vol] 99 mg/dL Normal 74-106 [facility] Comment on above: Performed By: #### C MP, LIPID #### [facility] [address] [place] [address] Dr. Faye Abbasi Potassium [Moles/Vol] 4.7 mmol/L Normal 3.5-5.1 [facility] Comment on above: Performed By: #### C MP, LIPID #### [facility] [address] [place] [address] Dr. Faye Abbasi Protein [Mass/Vol] 7.0 g/dL Normal 6.4-8.2 [facility] Comment on above: Performed By: #### C MP, LIPID #### [facility] [address] [place] [address] Dr. Faye Abbasi Sodium [Moles/Vol] 138 mmol/L Normal 136-145 [facility] Comment on above: Performed By: #### C MP, LIPID #### [facility] [address] [place] [address] Dr. Faye Abbasi Urea nitrogen [Mass/Vol] 22.0 mg/dL Critically high 7.0-18.[address] [facility] Comment on above: Performed By: #### C MP, LIPID #### [facility] [address] [place], [place] [address] Dr. Faye Abbasi Urea nitrogen/Creatinine [Mass ratio] 22.9 mg/mg Normal [facility] Comment on above: Performed By: #### C MP, LIPID #### [facility] [address] [address] [address] Faye Abbasi Vital Signs Date Time Vital Sign Value Performing Clinician Facility 02-06-2023 10:45-0500 Body height 177.8 cm Keyana Crawford Other [facility] Other 02-06-2023 10:45-0500 Body mass index (BMI) [Ratio] 25.39 kg/m2 Keyana Crawford [facility] Other 02-06-2023 10:45-0500 Body temperature 97.7 [degF] Keyana Crawford [facility] Other 02-06-2023 10:45-0500 Body weight 80.29 kg Keyana Crawford [facility] Other 02-06-2023 10:45-0500 Diastolic blood pressure 86 mm[Hg] Keyana Crawford Other [facility] Other 02-06-2023 10:45-0500 Respiratory rate 18 /min Keyana Crawford [facility] Other 02-06-2023 10:45-0500 SaO2% (BldA) [Mass fraction] 98 % Keyana Crawford [facility] Other 02-06-2023 10:45-0500 Systolic blood pressure 141 mm[Hg] Keyana Crawford Other [facility] Other 10-07-2022 11:10-0400 Body height 177.8 cm Peter Vu MD [facility] [employer] 10-07-2022 07:00-0400 Body temperature 98.01 [degF] Peter Vu MD [facility] [employer] 10-07-2022 07:00-0400 Diastolic blood pressure 79 mm[Hg] Peter Vu MD [facility] [employer] 10-07-2022 07:00-0400 Heart rate 77 /min Peter Vu MD [facility] [employer] 10-07-2022 07:00-0400 Respiratory rate 17 /min [facility] 10-07-2022 07:00-0400 SaO2% (BldA) [Mass fraction] 98 % [facility] 10-07-2022 07:00-0400 Systolic blood pressure 144 mm[Hg] [facility] 10-01-2022 15:00-0400 Body mass index (BMI) [Ratio] 24.42 kg/m2 [facility] 10-01-2022 15:00-0400 Body weight 77.2 kg Peter Vu MD [facility] [employer] 10-01-2022 10:54-0400 Body temperature 37.0 [facility]V [facility] [employer] Encounters Encounter Date Encounter Type Care Provider Facility Start: 11-16-2023 ambulatory MD Ibrahima Zaman [facility] ity:[facility] [place] Start: 09-11-2023 End: 09-11-2023 ambulatory MD Ibrahima Zaman Facility:[facility] Start: 06-12-2023 End: 06-12-2023 ambulatory MD Ibrahima Zaman Facility:[facility] [place] Start: 06-09-2023 End: 06-09-2023 ambulatory CINDY DE LA PAZ Not Available Start: 05-01-2023 End: 05-01-2023 ambulatory CINDY D ZAHLER Not Available Start: 03-23-2023 End: 03-23-2023 ambulatory MD Ibrahima Zaman Facility: [facility] Start: 02-06-2023 Office outpatient vi sit 15 minutes Keyana Crawford [facility] Start: 02-06-2023 End: 02-06-2023 ambulatory CINDY Kevin ANA CRISTINA [facility] Other Start: 01-16-2023 End: 01-16-2023 ambulatory MD Ibrahima Zaman Facility: [facility] Start: 01-04-2023 End: 01-04-2023 ambulatory [facility] Start: 11-23-2022 End: 11-23-2022 ambulatory [facility] Start: 11-14-2022 End: 11-14-2022 ambulatory MD Ibrahima Zaman Facility: [facility] Start: 10-26-2022 End: 10-26-2022 ambulatory [facility] Start: 10-17-2022 End: 10-17-2022 ambulatory MD Ibrahima Zaman Facility: [facility] Start: 10-13-2022 End: 10-13-2022 ambulatory MD Ibrahima Zaman Facility: [facility] Start: 10-01-2022 End: 10-07-2022 Evaluation and management of inpatient Peter Vu MD [facility] Comment on above: Closed Galeazzi's fr acture of left radius, initial encounter (Primary Dx); Subarachnoid bleed (HCC); Orbital floor (blow-out) closed fracture (HCC); Closed fracture of left side of maxilla, initial encounter (HCC) Start: 08-19-2021 Encounter for genera l adult medical examination without abnormal findings DR SEBASTIAN CARO [facility] Start: 08-16-2021 End: 08-17-[address] SEBASTIAN CARO Facility:[facility] Start: 08-16-2021 End: 08-17-2021 Encounter for general adult medical examination without abnormal findings DR SEBASTIAN CARO Facility:[facility] Procedures Date Procedure Procedure Detail Performing Clinician Start: 10-07-2022 Sodium serum plasma or whole blood Brenna Vance [employer] ANALY[employer] Work Phone: Start: 10-07-2022 Basic metabolic pane l calcium total Jun Cast Boothby DO Work Phone: Start: 10-06-2022 Culture bacterial bl ood aerobic w/id isolates Jermaine Alexandra MD Work Phone: Start: 10-06-2022 Blood count complete auto&auto difrntl wbc Jermaine Alexandra MD Work Phone: Start: 10-06-2022 CULTURE, BLOOD 1 Jermaine Alexandra MD Work Phone: Start: 10-06-2022 LACTATE, SEPSIS Jermaine Alexandra MD Work Phone: Start: 10-06-2022 Radex wrist complete minimum 3 views Jun Cast Boothby DO Work Phone: Start: 10-06-2022 Fluoroscopy during operation Jun Cast Boothby DO Work Phone: Start: 10-06-2022 End: 10-06-2022 Open treatment radial shaft fracture Jun Cast Boothby DO Work Phone: Start: 10-06-2022 Basic metabolic pane l calcium total Jun Cast Boothby DO Work Phone: Start: 10-05-2022 Glucose blood reagen t strip Jermaine Alexandra MD Work Phone: Start: 10-05-2022 Basic metabolic pane l calcium total Jun C Boothby DO Work Phone: Start: 10-04-2022 Glucose blood reagen t strip Jermaine Alexandra MD Work Phone: Start: 10-04-2022 Glucose blood reagen t strip Jermaine Alexandra MD Work Phone: Start: 10-04-2022 Glucose blood reagen t strip Jermaine Alexandra MD Work Phone: Start: 10-04-2022 Urinalysis microscop ic only Nick Renner DO Work Phone: Start: 10-04-2022 Urnls dip stick/tabl et rgnt auto w/o microscopy Nick Renner DO Work Phone: Start: 9 End: 10-04-2022 Basic metabolic panel calcium total Jun C Camron DO Work Phone: Start: 10-03-2022 Glucose blood reagen t strip Jermaine Alexandra MD Work Phone: Start: 10-03-2022 Radiologic exam ches t single view Nick Renner DO Work Phone: Start: 10-03-2022 Ecg routine ecg w/le ast 12 lds i&r only Nick Renner DO Work Phone: Start: 10-03-2022 Glucose blood reagen t strip Jermaine Alexandra MD Work Phone: Start: 10-03-2022 Glucose blood reagen t strip Jermaine Alxeandra MD Work Phone: Start: 10-03-2022 End: 10-03-2022 Basic metabolic panel calcium total Jun C Camron DO Work Phone: Start: 10-03-2022 Calcium ionized Mouna Shell DO Work Phone: Start: 10-02-2022 Glucose blood reagen t strip Jermaine Alexandra MD Work Phone: Start: 10-02-2022 Radex wrist complete minimum 3 views Jaden Stone MD Work Phone: Start: 10-02-2022 BASIC METABOLIC PANE L W/ REFLEX TO MG FOR LOW K Jermaine Alexandra MD Work Phone: Start: 10-02-2022 Calcium ionized Jermaine Alexandra MD Work Phone: Start: 10-01-2022 Ct head/brain w/o co ntrast material Mouna Shell DO Work Phone: Start: 10-01-2022 Glucose blood reagen t strip Jermaine Alexandra MD Work Phone: Start: 10-01-2022 Ct angiography neck w/contrast/noncontrast Franklyn Snyder DO Work Phone: Start: 10-01-2022 Ct head/brain w/o co ntrast material Jermaine MENEZES Work Phone: Start: 10-01-2022 End: 10-01-2022 Radex wrist complete minimum 3 views Franklyn Cody DO Work Phone: Start: 10-01-2022 End: 10-01-2022 Radex elbow 2 views Franklyn Snyder DO Work Phone: Start: 10-01-2022 Ct thorax w/contrast material Franklyn Snyder DO Work Phone: Start: 10-01-2022 End: 10-01-2022 Ct cervical spine w/o contrast material Franklyn Snyder DO Work Phone: Start: 10-01-2022 End: 10-01-2022 Ct head/brain w/o contrast material Franklyn Snyder DO Work Phone: Start: 10-01-2022 Blood typing serologic abo Peter Vu MD Start: 10-01-2022 TRAUMA PANEL Peter Vu MD Start: 10-01-2022 TROP/MYOGLOBIN Peter Vu MD Start: 08-16-[address] SEBASTIAN DAN Comment on above: Performed By: #### [facility] #### [facility] [address] [place] [address] Dr. Faye Abbasi Plan of Treatment Date Care Activity Detail Author Start: 11-17-2022 End: 11-17-2022 Patient encounter procedure 11/17/2022 Office Visit Neurosurgery Arianne Doss W, [employer] ANALYST [address] [facility] [address] [place] [address] [facility] Start: 10-26-2022 End: 10-26-2022 Patient encounter procedure 10/26/2022 Office Visit Orthopedic Surgery Jun Argueta, DO [address] [place] [address] [facility] Start: 10-01-2022 Annual Wellness Visi t (AWV) Annual Wellness Visit (AWV) [facility] Start: 09-20-2022 Influenza vaccination Flu vaccine (# 1) [facility] Start: 08-13-2013 Shingles vaccine (1 of 2) Shingles vaccine (1 of 2) [facility] Start: 08-13-2008 Screening for malign ant neoplasm of colon [facility] Start: 2003 Lipid panel Lipids [facility] [employer] Start: 08-13-1982 DTaP/Tdap/Td vaccine (1 - Tdap) DTaP/Tdap/Td vaccine (1 - Tdap) [facility] Start: 08-13-1981 Hepatitis C screening Hepatitis C sc reen [facility] Start: 08-13-1978 HIV screening HIV screen [facility] [employer] Start: 1975 Depression Screen Depression Screen [facility] Start: 02-13-1964 COVID-19 Vaccine (#1) COVID-19 Vacci ne (#1) [facility] End: 10-01-2022 3d rendering w/interp & postprocess supervision [facility] Comment on above: Once for 1 Occurrenc es starting 10/01/2022 until 10/01/2022 End: 10-09-2022 Basic metabolic 2000 panel - Serum or Plasma Basic Metabolic Panel Lab Routine Daily for 7 Days starting 10/03/2022 until 10/09/2022, 5 completed [facility] Comment on above: Daily for 7 Days sta rting 10/03/2022 until 10/09/2022, 5 completed End: 10-09-2022 CBC W Auto Differential panel - Blood CBC with Auto Differential Lab Routine Daily for 7 Days starting 10/03/2022 until 10/09/2022, 5 completed [facility] Comment on above: Daily for 7 Days sta rting 10/03/2022 until 10/09/2022, 5 completed Culture, Blood 1 Culture, Blood 1 Microbiology STAT 10/06/2022 9:48 PM EDT [facility] Culture, Blood 2 Culture, Blood 2 Microbiology STAT 10/06/2022 9:52 PM EDT [facility] End: 10-02-2022 [employer] clinical swallow evaluation [employer] clinical swallow evaluation [employer]CH[employer] Routine One Time for 1 Occurrences starting 10/02/2022 until 10/02/2022 [facility] Comment on above: One Time for 1 Occur rences starting 10/02/2022 until 10/02/2022 End: 10-01-2022 Speech and language therapy regime Speech language pathology evaluation [employer] Routine One Time for 1 Occurrences starting 10/01/2022 until 10/01/2022 [facility] [employer] Comment on above: One Time for 1 Occur rences starting 10/01/2022 until 10/01/2022 End: 11-11-2022 Spirometry panel Incentive spirometry Respiratory Care Routine Every 1hr while awake for 41 Days starting 10/01/2022 until 11/11/2022 [facility] Comment on above: Every 1hr while awak e for 41 Days starting 10/01/2022 until 11/11/2022 Payers Date Payer Category Payer Unknown [id number] 1.2.84 [id number] 1965 Unknown [id number] 2.16.84 [id number] 1965 Unknown [id number] 2.16.84 [id number] 1963 Unknown [id number] 2.16.84 [id number] 1963 Unknown [id number] 2.16.840 .[id number] 1963 Unknown [id number] 2.16.8 [id number] 1965 Unknown [id number] 2.16.8 40.1.612495.3.579.2.727 1965 Unknown [id number] 2.16.8 40.1.175435.3.579.2.727 1965 Unknown [id number] 2.16.8 40.1.029303.3.579.2.727 1963 Unknown [id number] 2.16.8 40.1.149231.3.579.2.727 1963 Unknown [id number] 2.16.8 [id number] 1963 Unknown [id number] 2.16.8 40.1.622419.3.579.2.727 1963 Unknown [id number] 2.16.8 40.1.785098.3.579.2.727 1963 Unknown [id number] 2.16. [id number] 1963 Unknown [id number] 2.16. [id number] 1963 Unknown [id number] 2.16. [id number] 1965 Unknown [id number] 2.16. [id number] 1959 Unknown [id number] Unknown [id number] Social History Date Type Detail Facility Tobacco smoking status [facility] Tobacco smoking consumption unknown [facility] [employer] Start: 10-01-2022 History SDOH Alcohol Frequency 1 [facility] [employer] Start: 10-01-2022 History SDOH Alcohol Std Drinks 0 [facility] [employer] Start: 1965 Sex Assigned At Not on file [facility] [employer] Sex Assigned At Sex Assigned At [facility] [employer] Other Medical Equipment Procedure Code Equipment Code Equipment Origin al Text Equipment Identifier Dates Screw Bne L14mm Dia2.7mm [facility] T8 [facility] Recess - [id number] Start: 10-06-2022 Clinical Note 09-11-2023 Note Date & Type Note Facility 09-11-2023 Note Patient Education Nutrition BMI for Adults What is BMI? Body mass index (BMI) is a number that is calculated from a person's weight and height. BMI can help estimate how much of a person's weight is composed of fat. BMI does not measure body fat directly. Rather, it is an alternative to procedures that directly measure body fat, which can be difficult and expensive. BMI can help identify people who may be at higher risk for certain medical problems. What are BMI measurements used for? BMI is used as a screening tool to identify possible weight problems. It helps determine whether a person is obese, overweight, a healthy weight, or underweight. BMI is useful for: ? Identifying a weight problem that may be related to a medical condition or may increase the risk for medical problems. ? Promoting changes, such as changes in diet and exercise, to help reach a healthy weight. BMI screening can be repeated to see if these changes are working. How is BMI calculated? BMI involves measuring your weight in relation to your height. Both height and weight are measured, and the BMI is calculated from those numbers. This can be done either in [place] ([place] or metric measurements. Note that charts and online BMI calculators are available to help you find your BMI quickly and easily without having to do these calculations yourself. To calculate your BMI in [place] measurements: 1. Measure your weight in pounds (lb). 2. Multiply the number of pounds by 703. ? For example, for a person who weighs 180 lb, multiply that number by 703, which equals 126,540. 3. Measure your height in inches. Then multiply that number by itself to get a measurement called inches squared. ? For example, for a person who is 70 inches tall, the inches squared measurement is 70 inches x 70 inches, which equals 4,900 inches squared. 4. Divide the total from step 2 (number of lb x 703) by the total from step 3 (inches squared): 126,540 ? 4,900 = 25.8. This is your BMI. To calculate your BMI in metric measurements: 1. Measure your weight in kilograms (kg). 2. Measure your height in meters (m). Then multiply that number by itself to get a measurement called meters squared. ? For example, for a person who is 1.75 m tall, the meters squared measurement is 1.75 m x 1.75 m, which is equal to 3.1 meters squared. 3. Divide the number of kilograms (your weight) by the meters squared number. In this example: 70 ? 3.1 = 22.6. This is your BMI. What do the results mean? BMI charts are used to identify whether you are underweight, normal weight, overweight, or obese. The following guidelines will be used: ? Underweight: BMI less than 18.5. ? Normal weight: BMI between 18.5 and 24.9. ? Overweight: BMI between 25 and 29.9. ? Obese: BMI of 30 or above. Keep these notes in mind: ? Weight includes both fat and muscle, so someone with a muscular build, such as an athlete, may have a BMI that is higher than 24.9. In cases like these, BMI is not an accurate measure of body fat. ? To determine if excess body fat is the cause of a BMI of 25 or higher, further assessments may need to be done by a health care provider. ? BMI is usually interpreted in the same way for men and women. Where to find more information For more information about BMI, including tools to quickly calculate your BMI, go to these websites: ? Centers for Disease Control and Prevention: www.cdc.gov ? [place] [employer]: www.heart.org ? National Heart, Lung, and Blood Hooper: www.nhlbi.nih.gov Summary ? Body mass index (BMI) is a number that is calculated from a person's weight and height. ? BMI may help estimate how much of a person's weight is composed of fat. BMI can help identify those who may be at higher risk for certain medical problems. ? BMI can be measured using [place] measurements or metric measurements. ? BMI charts are used to identify whether you are underweight, normal weight, overweight, or obese. This information is not intended to replace advice given to you by your health care provider. Make sure you discuss any questions you have with your health care provider. Document Revised: 10/30/2019 Document Reviewed: 09/06/2019 [employer] Patient Education ? 2022 [employer] [facility] Evaluation note 02-06-2023 Note Date & Type Note Facility 02-06-2023 Evaluation note Encounter Date Diagnosis Assessment Notes Jan, Otitis media with effusion (ICD-10 - H65.90) Middle Ear Fluid: Care Instructions material was printed. Discussed options of intranasal corticosteroid versus PO steroid. [place] decision made for intranasal route. Rx sent, use as directed. Nothing in affected ear or submerging head under water until resolution of s/s. Immediate eval if warning s/s of intractable pain, fevers, hearing loss, ear drainage, which were discussed with pt while in clinic. Otherwise f/u in 1 week if s/s persists or worsens. Jan, Other Ear fluid (middle ear effusion) material was printed Issuu Other History of Present illness Narrative 10-07-2022 Latricia Carroll, FARM [employer] ENGINE MECHANIC - 10/07/2022 3:15 PM Jesus Membreno MD - 10/07/2022 2:59 PM Oj Lau, PT - 10/07/2022 12:09 PM EDTMalia Carreon MS, RD, LD - 10/07/2022 11:14 AM EDT Note Date & Type Note Facility 10-07-2022 History of Present illness Narrative [employer]CH[employer]IC ALL NOTES Speech Language Pathology [facility] Cognitive and Dysphagia Treatment Note Date: 10/07/2022 Patient s Name: Azael Agosto Diagnosis: Patient Active Problem List Diagnosis Code SAH (subarachnoid hemorrhage) ([facility]) I60.9 Subdural hematoma ([facility]) S06.5XAA Traumatic intracranial subarachnoid hemorrhage ([facility]) S06.6XAA Closed fracture of left distal radius S52.502A Closed Galeazzi's fracture of left radius S52.372A Pain: 0/10 Cognitive Treatment Treatment time: 3210-4358 Subjective: [x] Alert [x] Cooperative [] Confused [] Agitated [] Lethargic Objective/Assessment: Attention: Pt with tangential speech, redirected with verbal cues Recall: Delayed recall of 1 functional unit: 0/1 not increased with cues, 1/1, 0/1 increased to 1/1 with mod verbal cue, 1/1 independently Mental manipulation reverse order: 6/8 increased to 8/8 with repetition and min verbal cues Immediate recall of 5 units (zip codes): 6/6 independently Problem Solving/Reasoning: Determining if statements are true/false (functional): 8/10 increased to 10/10 with min verbal cues Other: Pt continues with severe short term recall difficulty. Pt was able to retell accident based on hearing about it from family, however pt with poor recall of hospital course as well as events from PT session approx 10 mins prior. Dysphagia: Pt states he is tolerating Easy to Chew with thin liquids. Pt observed with trials of lunch- soft solid and thin liquids. No overt s/s of aspiration. Recommend pt continue current diet. Reviewed safe swallow strategies (small sips and bites, slow rate, upright at 90 degrees). If pt presents with overt s/s of aspiration, recommend pt complete MBSS. Plan: [x] Continue ST services [] Discharge from ST: Discharge recommendations: [x] Further therapy recommended at discharge.The patient should be able to tolerate at least 3 hours of therapy per day over 5 days or 15 hours over 7 days. [x] Further therapy recommended at discharge. [] No therapy recommended at discharge. Treatment completed by: SUDHEER Haq, M.S. [facility]-[employer]CH[employer]IC Physical Medicine & Rehabilitation Progress Note Admitting Physician: Jermaine Alexandra MD Primary Care Provider: No primary care provider on file. Chief Complaint: Fall from [employer] Brief History: This is a follow up to the initial consult on Mr. Azael Agosto who is a 57 y.o. right handed male admitted to [facility] on 10/01/2022 with Fall He initially presented after a fall from [employer], approximately 12 feet. Per records, he was unresponsive for 12 minutes at the scene. GCS [address] head showed a few tiny foci of subarachnoid hemorrhage. He was also found to have multiple facial fractures (including bilateral maxillary sinuses, nasal bones, and a left orbital blowout fracture) and left distal radius fracture s/p closed reduction on 10/01/22. Repeat CT head showed worsening areas of parenchymal, subdural, and subarachnoid hemorrhage without mass effect or midline shift. He had a left grace laceration, which was repaired on 10/01/22. Neurosurgery did not recommend any surgical intervention at this time. Plastic surgery is not planning any surgical intervention at this time. He has sinus precautions. He underwent ORIF left distal radius fracture on 10/06/22 (Dr. Argueta). He is NWB to the left upper limb. Subjective: He reports some headache and chest pain. He notes only mild pain in the left upper limb. ROS: Review of Systems Constitutional: Negative for fever. Cardiovascular: Positive for chest pain. Musculoskeletal: Positive for joint pain. Neurological: Positive for headaches. Rehabilitation: Physical Therapy Restrictions/Precautions: Weight Bearing Other position/activity restrictions: Sinus precautions Left Upper Extremity Weight Bearing: Non Weight Bearing Required Braces or Orthoses Left Upper Extremity Brace/Splint: (Sugar tong splint required. Keep C/D/I per ortho Sx.) Bed mobility Supine to Sit: Stand by assistance Sit to Supine: Stand by assistance Scooting: Contact guard assistance Bed Mobility Comments: HOB elevated ~ 30 degrees, no bed rails utilized Transfers Sit to Stand: Contact guard assistance Stand to Sit: Contact guard assistance Ambulation Surface: Level tile Device: No Device Assistance: Minimal assistance Quality of Gait: Frequent veering. Bumped two objects. Distance: 200' Comments: The pt ambulated with some mild unsteadiness More Ambulation?: Yes Occupational Therapy ADL Feeding: Supervision, Setup (Pt demoed beverage mgmt w/ set up, SUP for safety) Grooming: Stand by assistance, Setup, Verbal cueing (Pt demoed oral hygiene while standing sinkside w/ SBA for safety and VCs d/t visual deficits) UE Bathing: Minimal assistance (assist for back) LE Bathing: Minimal assistance, Increased time to complete, Setup, Verbal cueing (pt demonstrates impulsivity with movement, verbal cuing to slow down. Pt requires verbal cuing for non weight bearing LUE. Decreased functional reach with balance) UE Dressing: Minimal assistance (pt able to thread BUE's in and out of hosp gown, assist to tie gown in back) LE Dressing: Minimal assistance, Setup, Verbal cueing, Increased time to complete (pt demonstrates impulsivity with movement, verbal cuing to slow down. Pt requires verbal cuing for non weight bearing LUE. Decreased functional reach with balance) Toileting: Contact guard assistance (for safety with balance and impulsiveness) Transfers Sit to stand: Contact guard assistance Stand to sit: Contact guard assistance Transfer Comments: pt impulsive, attempting to stand at eob without warning. pt moves quickly Speech Therapy Subjective: [x] Alert [x] Cooperative [] Confused [] Agitated [] Lethargic Objective/Assessment: Attention: Pt with tangential speech, redirected with verbal cues Recall: Delayed recall of 1 functional unit: 0/1 not increased with cues, 1/, 0/1 increased to 1/ with mod verbal cue, 02/20 independently Mental manipulation reverse order: 07/28 increased to 09/27 with repetition and min verbal cues Immediate recall of 5 units (zip codes): 07/26 independently Problem Solving/Reasoning: Determining if statements are true/false (functional): 09/29 increased to 11/29 with min verbal cues Other: Pt continues with severe short term recall difficulty. Pt was able to retell accident based on hearing about it from family, however pt with poor recall of hospital course as well as events from PT session approx 10 mins prior. Dysphagia: Pt states he is tolerating Easy to Chew with thin liquids. Pt observed with trials of lunch- soft solid and thin liquids. No overt s/s of aspiration. Recommend pt continue current diet. Reviewed safe swallow strategies (small sips and bites, slow rate, upright at 90 degrees). If pt presents with overt s/s of aspiration, recommend pt complete MBSS. Current Medications: Current Facility-Administered Medications: enoxaparin Sodium (LOVENOX) injection 30 mg, 30 mg, SubCUTAneous, BID sertraline (ZOLOFT) tablet 50 mg, 50 mg, Oral, Daily levETIRAcetam (KEPPRA) tablet 500 mg, 500 mg, Oral, BID oxyCODONE (ROXICODONE) immediate release tablet 5 mg, 5 mg, Oral, Q6H PRN acetaminophen (TYLENOL) tablet 1,000 mg, 1,000 mg, Oral, 3 times per day [Held by provider] enoxaparin Sodium (LOVENOX) injection 30 mg, 30 mg, SubCUTAneous, BID sodium chloride flush 0.9 % injection 5-40 mL, 5-40 mL, IntraVENous, PRN polyethylene glycol (GLYCOLAX) packet 17 g, 17 g, Oral, Daily Objective: BP (!) 144/79 Pulse 77 Temp 98 F (36.7 C) (Oral) Resp 17 Ht 5' 10 (1.778 m) Wt 170 lb 3.1 oz (77.2 kg) SpO2 98% BMI 24.42 kg/m GEN: Well developed, well nourished, no acute distress HEENT: Normocephalic. Periorbital ecchymosis noted on the left. EOM grossly intact. Hearing grossly intact. Mucous membranes pink and moist. RESP: Normal breath sounds with no wheezing, rales, or rhonchi. Respirations WNL and unlabored. CV: Regular rate and rhythm. No murmurs, rubs, or gallops. ABD: Soft, non-distended, BS+ and equal. NEURO: Alert. Speech fluent. Sensation to light touch intact. MSK: Muscle bulk is normal bilaterally. Moving bilateral upper limbs with at least antigravity strength. Moves left fingers. Strength 4+/5 with bilateral ankle dorsiflexion and plantarflexion. LIMBS: No edema in bilateral lower limbs. SKIN: Warm and dry with good turgor. PSYCH: Mood WNL. Affect WNL. Appropriately interactive. Diagnostics: CBC: Recent Labs 10/06/22 0541 10/06/22 2148 10/07/22 0615 WBC 3.9 5.1 5.2 RBC 4.40 4.43 4.38 HGB 13.9 14.0 13.7 HCT 42.4 41.2 42.4 MCV 96.4 93.0 96.8 RDW 11.9 11.6* 11.5* PLT 189 204 See Reflexed IPF Result BMP: Recent Labs 10/05/22 0527 10/06/22 0541 10/07/22 0615 NA 139 134* 127* K 4.0 4.0 4.9 CL 104 100 97* CO2 25 23 16* BUN 10 18 17 CREATININE 0.8 0.7 0.7 BNP: No results for input(s): BNP in the last 72 hours. PT/INR: No results for input(s): PROTIME, INR in the last 72 hours. APTT: No results for input(s): APTT in the last 72 hours. CARDIAC ENZYMES: No results for input(s): CKMB, CKMBINDEX, TROPONINT in the last 72 hours. Invalid input(s): CKTOTAL;3 FASTING LIPID PANEL:No results found for: CHOL, HDL, TRIG LIVER PROFILE: No results for input(s): AST, ALT, ALB, BILIDIR, BILITOT, ALKPHOS in the last 72 hours. 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 Will follow up on post-operative OT update/re-evaluation. DVT Prophylaxis: Lovenox (currently on hold) Physical Therapy Facility/Department: [address] ORTHO/MED SURG Physical Therapy Name: Azael Agosto : 1965 Date of Service: 10/07/2022 Discharge Recommendations: Patient would benefit from continued therapy after discharge Patient Diagnosis(es): The primary encounter diagnosis was Closed Galeazzi's fracture of left radius, initial encounter. Diagnoses of Subarachnoid bleed (HCC), Orbital floor (blow-out) closed fracture (HCC), and Closed fracture of left side of maxilla, initial encounter (HCC) were also pertinent to this visit. Past Medical History: has no past medical history on file. Past Surgical History: has no past surgical history on file. Assessment Body Structures, Functions, Activity Limitations Requiring Skilled Therapeutic Intervention: Decreased functional mobility ;Decreased strength;Decreased balance;Decreased safe awareness;Decreased coordination Assessment: Patient demonstrates poor judgment, poor balance, poor attention to surroundings. Patient treated for gait, balance, LE exercise. Patient will need further PT to regain functional independence. Requires PT Follow-Up: Yes Plan Physcial Therapy Plan General Plan: (5-6x/wk) Current Treatment Recommendations: Strengthening, Balance training, Functional mobility training, Transfer training, Stair training, Gait training, Safety education & training, Therapeutic activities, Patient/Caregiver education & training Safety Devices Type of Devices: Call light within reach, Gait belt, Nurse notified, Left in bed, Patient at risk for falls Restraints Restraints Initially in Place: No Restrictions Restrictions/Precautions Restrictions/Precautions: Weight Bearing Required Braces or Orthoses?: Yes Upper Extremity Weight Bearing Restrictions Left Upper Extremity Weight Bearing: Non Weight Bearing Required Braces or Orthoses Left Upper Extremity Brace/Splint: Position Activity Restriction Other position/activity restrictions: Sinus precautions Subjective General Patient assessed for rehabilitation services?: Yes Family / Caregiver Present: No Follows Commands: Within Functional Limits Cognition Orientation Orientation Level: Oriented to time;Oriented to situation;Oriented to person;Oriented to place Cognition Overall Cognitive Status: Exceptions Arousal/Alertness: Appropriate responses to stimuli Following Commands: Follows multistep commands with increased time Attention Span: Difficulty attending to directions;Difficulty dividing attention Memory: Decreased recall of recent events Safety Judgement: Good awareness of safety precautions Problem Solving: Decreased awareness of errors Insights: Decreased awareness of deficits Initiation: Requires cues for some Sequencing: Requires cues for some Objective Pulse: 77 Heart Rate Source: Monitor BP: (!) 144/79 MAP (Calculated): 101 Respirations: 17 SpO2: 98 % Observation/Palpation Observation: L forearm splint. L eye is bruised. Sclera is red. Transfers Sit to Stand: Contact guard assistance Stand to Sit: Contact guard assistance Ambulation Surface: Level tile Device: No Device Assistance: Minimal assistance Quality of Gait: Frequent veering. Bumped two objects. Distance: 200' Ambulation 2 Surface - 2: level tile Device 2: No device Assistance 2: Minimal assistance Quality of Gait 2: Several objects were placed in his path, He navigated around those with difficulty, often needing to be stopped and shown how close he is or shown that he bumped the object. Distance: 100' Balance Standing - Static: Fair Standing - Dynamic: Fair Comments: Rhomberg stance training without UE support with periods of eyes closed 10 second periods. Slow marches without UE support for temporary unilateral stance. A/AROM Exercises: Heel toe raises x15 reps using walker for support. AM-PAC Score -[facility] Inpatient Mobility Raw Score : 20 (10/07/22 1138) [facility] Inpatient T-Scale Score : 47.67 (10/07/22 1138) Mobility Inpatient CMS 0-100% Score: 35.83 (10/07/22 1138) Mobility Inpatient CMS G-Code Modifier : CJ (10/07/221137) Goals Short Term Goals Time Frame for Short Term Goals: 10 visits Short Term Goal 1: transfers with SBA. Progress here. Goal nearly met. Short Term Goal 2: amb 150 ft without a device x SBA Short Term Goal 3: ascend/descend 4 steps with SBA Short Term Goal 4: 20 min strengthening exercise program x SBA Education Patient Education Education Given To: Patient Education Provided: Role of Therapy;Plan of Care;Fall Prevention Strategies;Transfer Training;Precautions Education Method: Demonstration;Verbal Education Outcome: Verbalized understanding Therapy Time Individual Concurrent Group Co-treatment Time In 1100 Time Out 1145 Minutes 45 Timed Code Treatment Minutes: 45 Minutes Rhina Lau PT Comprehensive Nutrition Assessment Type and Reason for Visit: RD Nutrition Re-Screen/LOS Nutrition Recommendations/Plan: Continue currnt diet, Regular with 1.5 L FR Monitor PO intake Malnutrition Assessment: Malnutrition Status: At risk for malnutrition (Comment) (10/07/22 111) Context: Acute Illness Findings of the 6 clinical characteristics of malnutrition: Energy Intake: No significant decrease in energy intake Weight Loss: Body Fat Loss: Unable to assess Muscle Mass Loss: Unable to assess Fluid Accumulation: No significant fluid accumulation Sheet Heater Helper Strength: Not Performed Nutrition Assessment: Chart review for LOS. 57 yo M adm SAH, facial fractures s/p fall. Pt is s/p ORIF L radius (10/06). Per chart, PO intake 51-75% this admission. No BM noted. +2 LUE edema noted Nutrition Related Findings: labs/meds reviewed Wound Type: Surgical Incision, Skin Tears Current Nutrition Intake & Therapies: Average Meal Intake: 51-75% Average Supplements Intake: None Ordered ADULT DIET; Regular; 1500 ml Anthropometric Measures: Height: 5' 10 (177.8 cm) [place] Body Weight (IBW): 166 lbs (75 kg) Current Body Weight: 170 lb 3.1 oz (77.2 kg) (10/01), 102.5 % IBW. Current BMI (kg/m2): 24.4 Weight Adjustment For: No Adjustment BMI Categories: Normal Weight (BMI 18.5-24.9) Estimated Daily Nutrient Needs: Energy Requirements Based On: Kcal/kg Weight Used for Energy Requirements: Current Energy (kcal/day): 1900 to 2000 kcal/day Weight Used for Protein Requirements: Current Protein (g/day): 90 to 100 g/day Method Used for Fluid Requirements: 1 ml/kcal Fluid (ml/day): 1900 to 2000 mL/day Nutrition Diagnosis: No nutrition diagnosis at this time Nutrition Interventions: Food and/or Nutrient Delivery: Continue Current Diet Nutrition Education/Counseling: No recommendation at this time Coordination of Nutrition Care: Continue to monitor while inpatient Nutrition Monitoring and Evaluation: Behavioral-Environmental Outcomes: None Identified Food/Nutrient Intake Outcomes: Food and Nutrient Intake Physical Signs/Symptoms Outcomes: Biochemical Data, Weight, Skin, Fluid Status or Edema Discharge Planning: No discharge needs at this time Malia Carreon MS, DANNI, GARY Contact: Images from the original note were not included. PROGRESS NOTE PATIENT NAME: Azael Agosto DATE: 10/07/2022 SURGEON: Dr. Smith PRIMARY CARE PHYSICIAN: No primary care provider on file. HD: # 6 ASSESSMENT Patient Active Problem List Diagnosis SAH (subarachnoid hemorrhage) (HCC) Subdural hematoma (HCC) Traumatic intracranial subarachnoid hemorrhage (HCC) Closed fracture of left distal radius Closed Galeazzi's fracture of left radius MEDICAL DECISION MAKING AND PLAN SAH/SDH Appreciate neurosurgery recommendations Repeat CT stable 2. MSK 1. Multiple facial fx Sinus precautions 2. Left distal radius fx 1. s/p ORIF on 10/06 3. Skin 1. Laceration repair left grace, sututers C/D/I 4. Faciale fxs Evaluated by plastics, no acute intervention 5. NPO for Sx 6. Pain control, MMPT 7. Mood changes, changed to Zoloft to 50 daily 8. PT/OT 9. Incentive Spirometry- pulls 1500, turn, cough, deep breathing 10. Dispo planning Home with home care vs rehab SUBJECTIVE Azael Agosto is has slightly improved since yesterday. Slept well, has not complaints. Seems slightly confused OBJECTIVE VITALS: Temp: Temp: 98 F (36.7 C)Temp Av.7 F (36.5 C) Min: 96.7 F (35.9 C) Max: 98.9 F (37.2 C) BP Systolic (24hrs), Av , Min:115 , Max:165 Diastolic (24hrs), Av, Min:70, Max:99 Pulse Pulse Av.5 Min: 70 Max: 88 Resp Resp Av.8 Min: 9 Max: 17 Pulse ox SpO2 Av.4 % Min: 92 % Max: 99 % GENERAL: alert, no distress NEURO: AA&Oxs3 HEENT: PERRLA B, has red sclera, vision intact, bruise to L eye : normal LUNGS: clear to ausculation, without wheezes, rales or rhonci, pulls 4000 on IS HEART: normal rate and regular rhythm ABDOMEN: soft, non-tender, non-distended, bowel sounds present in all 4 quadrants, and no guarding or peritoneal signs present EXTREMITY: no cyanosis, clubbing or edema, L grace lac sutures C/D/I I/O last 3 completed shifts: In: 600 [I.V.:600] Out: - Drain/tube output: In: 600 [I.V.:600] Out: - LAB: CBC: Recent Labs 10/06/22 0541 10/06/22 2148 10/07/22 0615 WBC 3.9 5.1 5.2 HGB 13.9 14.0 13.7 HCT 42.4 41.2 42.4 MCV 96.4 93.0 96.8 PLT 189 204 See Reflexed IPF Result BMP: Recent Labs 10/05/22 0527 10/06/22 0541 10/07/22 0615 NA 139 134* 127* K 4.0 4.0 4.9 CL 104 100 97* CO2 25 23 16* BUN 10 18 17 CREATININE 0.8 0.7 0.7 GLUCOSE 103* 96 75 COAGS: No results for input(s): APTT, PROT, INR in the last 72 hours. RADIOLOGY: CXR: Anette Velásquez DO 10/06/22, 3:39 PM Attestation signed by Gaurav Lopez MD I personally evaluated the patient and directed the medical decision making with Resident/ASHA after the physical/radiologic exam and laboratory values were reviewed and confirmed. Gaurav Lopez MD Orthopedic Progress Note Patient: Azael Agosto Date of : 1965 57 y.o. male Subjective: Patient seen and examined this morning. No complaints or concerns. No issues overnight per nursing. Pain is well controlled on current pain regimen. Denies fever, CARVER, CP, SOB, N/V, dysuria, new numbness/tingling. He is voiding appropriately. No BM, but flatus +. He was not evaluated by PT/OT yesterday due to undergoing surgery. Vitals reviewed, afebrile Objective: Vitals: 10/07/22 0430 BP: Pulse: Resp: 16 Temp: SpO2: Gen: NAD, cooperative . Cardiovascular: Regular rate. Respiratory: No acute respiratory distress, breathing comfortably. Orthopedic Exam LUE: Splint on left upper extremity in good repair without pinching at proximal or distal ends. CEZAR bandage overlying is clean, dry, and intact without strike-through. Exposed digits able to flex and extend. Global sensation intact to exposed digits. Exposed digits are warm and well perfused with capillary refill <2 seconds. Recent Labs 10/06/22 0541 10/06/22 2148 WBC 3.9 5.1 HGB 13.9 14.0 HCT 42.4 41.2 PLT 189 204 NA 134* -- K 4.0 -- BUN 18 -- CREATININE 0.7 -- GLUCOSE 96 -- Meds: DVT ppx: Lovenox. See rec for complete list Impression 57 y.o. male who fell from 12 feet being seen for: - Left distal radius fracture, s/p ORIF POD#1. Other Injuries: -Subarachnoid hemorrhage -Facial fractures -Left lower extremity laceration. Plan - No further plans for orthopedic intervention at this time. - Completed post-op ancef. - Splint on left upper extremity. Do not remove splint until post operative visit. - NWB to the left upper extremity. - Pain control and medical management per primary. - Multimodal pain control ordered . - DVT ppx: Lovenox. - Ice/Elevate left upper extremity to control pain and edema. - Diet: Adult diet. - Encourage Incentive Spirometry use. - Continue working with PT/OT . - Okay to discharge home from orthopedic perspective. - F/u with Dr. Argueta on 10/26/2022. - Please page Ortho geographic information systems engineer with any questions. Franklyn Cody DO Orthopedic Surgery Resident, PGY-1 [place], [place] Images from the original note were not included. Occupational Therapy [facility] Occupational Therapy Not Seen Note DATE: 10/06/2022 NAME: Azael Agosto : 1965 Patient not seen this date for Occupational Therapy due to: Pt off floor to surgery. Will continue as able. Speech Language Pathology [facility] Cognitive Treatment Note Date: 10/06/2022 Patient s Name: Azael Agosto Diagnosis: Patient Active Problem List Diagnosis Code SAH (subarachnoid hemorrhage) ([facility]) I60.9 Subdural hematoma ([facility]) S06.5XAA Traumatic intracranial subarachnoid hemorrhage ([facility]) S06.6XAA Closed fracture of left distal radius S52.502A Closed Galeazzi's fracture of left radius S52.372A Pain: 0/10 Cognitive Treatment Treatment time: 1349-8762 Subjective: [x] Alert [x] Cooperative [] Confused [] Agitated [] Lethargic Objective/Assessment: Attention: Pt distracted by external surroundings (doors closing, people speaking in hallway). Additionally distracted by internal tangential thought processes. Redirections back to tasks required. Orientation: time 1/3 +0 with max cues, self indep, spatial 2/2 indpe Recall: ST provided training on recall strategies for pt to utilize during hospital stay and at discharge. Pt initial confused regarding need for strategy use, however as he completed tx tasks and noticed difficulties pt engaged with cues for strategy use. Information from 3 sentence spoken paragraphs: 1/3 indep increasing to 2/3 with max cues across x4 trials. Pt consistently required cues to initiate and implement strategy use Problem Solving/Reasoning: Word deductions: 2/6 indep, 2/6 min cues, 2/6 mod cues for attention to each component and logical reasoning to link verbal concepts Functional multi step problem solving: mod cues across x3 scenarios to sequence components and reason through possible solutions Plan: [x] Continue ST services [] Discharge from ST: Discharge recommendations: [] Further therapy recommended at discharge.The patient should be able to tolerate at least 3 hours of therapy per day over 5 days or 15 hours over 7 days. [x] Further therapy recommended at discharge. [] No therapy recommended at discharge. Shira Dangelo M.S., [facility]-FARM IMPLEMENT ENGINE MECHANIC Treatment completed by: SUDHEER Díaz Images from the original note were not included. PROGRESS NOTE PATIENT NAME: Azael Agosto DATE: 10/06/2022 SURGEON: Dr. Smith PRIMARY CARE PHYSICIAN: No primary care provider on file. HD: # 5 ASSESSMENT Patient Active Problem List Diagnosis SAH (subarachnoid hemorrhage) (HCC) Subdural hematoma (HCC) Traumatic intracranial subarachnoid hemorrhage (HCC) Closed fracture of left distal radius Closed Galeazzi's fracture of left radius MEDICAL DECISION MAKING AND PLAN SAH/SDH Appreciate neurosurgery recommendations Repeat CT stable 2. MSK 1. Multiple facial fx Sinus precautions 2. Left distal radius fx 1. Ortho now planning intervention 10/06 3. Skin 1. Laceration repair left grace, sututers C/D/I 4. Faciale fxs Evaluated by plastics, no acute intervention 5. NPO for Sx 6. Pain control, MMPT 7. Mood changes, changed to Zoloft to 50 daily 8. PT/OT 9. Incentive Spirometry- pulls 1500, turn, cough, deep breathing 10. Dispo planning SUBJECTIVE Azael Agosto is has slightly improved since yesterday. Slept well, has not complaints but states he wants his surgery to be over and done with. Denies pain, SOB, or CP. OBJECTIVE VITALS: Temp: Temp: 98 F (36.7 C)Temp Av F (36.7 C) Min: 97.3 F (36.3 C) Max: 98.3 F (36.8 C) BP Systolic (24hrs), Av , Min:96 , Max:139 Diastolic (24hrs), Av, Min:68, Max:97 Pulse Pulse Av.7 Min: 68 Max: 85 Resp Resp Av.4 Min: 9 Max: 14 Pulse ox SpO2 Av.6 % Min: 91 % Max: 96 % GENERAL: alert, no distress NEURO: AA&Oxs3 HEENT: PERRLA B, has red sclera, vision intact, bruise to L eye : normal LUNGS: clear to ausculation, without wheezes, rales or rhonci, pulls 1500 on IS HEART: normal rate and regular rhythm ABDOMEN: soft, non-tender, non-distended, bowel sounds present in all 4 quadrants, and no guarding or peritoneal signs present EXTREMITY: no cyanosis, clubbing or edema, L grace lac sutures C/D/I I/O last 3 completed shifts: In: 1040 [P.O.:1000; I.V.:40] Out: 2074 [Urine:2074] Drain/tube output: In: 700 [P.O.:700] Out: 350 [Urine:350] LAB: CBC: Recent Labs 10/04/2252910/05/2252610/06/22 0541 WBC 5.3 5.1 3.9 HGB 13.7 13.5 13.9 HCT 39.8* 38.3* 42.4 MCV 91.7 90.5 96.4 PLT See Reflexed IPF Result 142 189 BMP: Recent Labs 10/04/2252910/05/2252610/06/22 0541 NA 139 139 134* K 4.2 4.0 4.0 CL 105 104 100 CO2 24 25 23 BUN 13 10 18 CREATININE 0.8 0.8 0.7 GLUCOSE 87 103* 96 COAGS: No results for input(s): APTT, PROT, INR in the last 72 hours. RADIOLOGY: CXR: Uriah Soto MD 10/06/22, 10:20 AM Associated attestation - Diego Smith MD - 10/06/2022 6:43 PM EDT I personally evaluated the patient and directed the medical decision making with Resident/ASHA after the physical/radiologic exam and laboratory values were reviewed and confirmed. Diego Smith MD Orthopedic Progress Note Patient: Azael Agosto, 57 y.o. male Date of : 1965 Subjective: Patient seen and examined. No complaints or concerns. Pain controlled on current regimen. No issues overnight. Denies fever, CARVER, CP, SOB, N/V. NPO for OR today. Objective: Vitals: 10/06/22 0352 BP: 132/85 Pulse: 68 Resp: 14 Temp: 98 F (36.7 C) SpO2: 94% Gen: NAD, cooperative Cardiovascular: Regular rate Respiratory: Symmetric chest rise. No accessory muscle use MSK LUE: Splint on, c/d/I. Minor digital swelling noted. Sensation and motor intact to exposed digits. Digits warm with BCR. Recent Labs 10/05/22 0527 WBC 5.1 HGB 13.5 HCT 38.3* PLT 142 NA 139 K 4.0 BUN 10 CREATININE 0.8 GLUCOSE 103* Anticoag: Lovenox, please hold till POD#1 Abx: Ancef Impression/Plan: 57 y.o. male who fell from 12 feet being seen for: - Left distal radius fracture Other Injuries: -Subarachnoid hemorrhage -Facial fractures -Left lower extremity laceration. Plan -Plan for OR TODAY, 10/06/22, with Dr. Argueta for ORIF of left distal radius pending risk stratification. Would appreciate recs. - Ancef OCTOR. - Splint on left upper extremity, please maintain. - NWB LUE - Pain control and medical management per primary. - DVT ppx: Please hold lovenox in anticipation for OR today, 10/06/22. - Ice/Elevate for pain and swelling -Diet: NPO - Encourage Incentive Spirometry use. - Continue working with PT/OT, not seen yesterday. 100' w/ PT 10/04 - Please page Ortho geographic information systems engineer with any questions. . Associated attestation - Jun Argueta DO - 10/06/2022 2:57 PM EDT I reviewed with the resident the medical history and the resident's findings on the physical examination. I discussed with the resident the patient's diagnosis and concur with the plan. I independently performed a history and physical exam on the patient and agree with documentation as above. Patient seen and examined. Pain controlled. Denies numbness or tingling. N.p.o. since midnight. Vitals reviewed, afebrile. General: NAD, Cooperative Cardiovascular: Regular rate, no dependent edema Respiratory: Chest symmetric, no accessory muscle use, normal respirations Left upper extremity: Splint in place. Clean, dry, intact. Exposed digits warm well perfused. Patient able to wiggle all digits by significant pain or discomfort. Patient expresses normal sensation light touch throughout hand. 57 y.o. male who fell from 12 feet being seen for: - Left distal radius fracture Other Injuries: -Subarachnoid hemorrhage -Facial fractures -Left lower extremity laceration. Lengthy discussion had with patient about current clinical state. Once again discussed operative versus nonoperative intervention. Given the fracture pattern, with high risk of displacement, recommend operative intervention. Patient is amenable to this. We will plan for operative intervention 10/06/2022. Continue ice for pain and swelling. Consent obtained. Site marked. We will proceed with operative intervention today Jun Argueta DO Patients hibiclens bath completed by radio script writer. New gown, linens, tele patches, pulse ox and bed pads. Will do second hibiclens bath in morning prior to surgery Speech Language Pathology [facility] Cognitive Treatment Note Date: 10/05/2022 Patient s Name: Azael Agosto Patient Active Problem List Diagnosis Code SAH (subarachnoid hemorrhage) (HCC) I60.9 Subdural hematoma (HCC) S06.5XAA Traumatic intracranial subarachnoid hemorrhage (HCC) S06.6XAA Closed fracture of left distal radius S52.502A Closed Galeazzi's fracture of left radius S52.372A Pain: 0/10 Cognitive Treatment Treatment time: 3345-2790 Subjective: [x] Alert [x] Cooperative [x] Confused (pleasant) [] Agitated [] Lethargic Objective/Assessment: Attention: Pt. Distracted by external surroundings (doors closing, people speaking in hallway). Redirections back to tasks required. Orientation: Pt. Pleasantly confused. Often asked how did I get here . Pt. Insisting he was not here (in the hospital) earlier today. Pt. Re-oriented to hospital and reason for admission. Recall: Word list retention, recall by attribute: 6/10 increased to 10/10 with repetition Delayed recall of 3 pictures unrelated: 0/3 increased to 2/3 with min-mod verbal cues, 1/3 increased to 3/3 with min verbal cues Organization: Word generation, concrete: 20/40 increased to 40/40 with min-mod verbal cues Problem Solving/Reasoning: Analogies: 6/10 increased to 10/10 with min-max verbal cues Plan: [x] Continue ST services [] Discharge from ST: Discharge recommendations: [] Further therapy recommended at discharge.The patient should be able to tolerate at least 3 hours of therapy per day over 5 days or 15 hours over 7 days. [x] Further therapy recommended at discharge. [] No therapy recommended at discharge. Treatment completed by: ANETTE SHARMA FARM IMPLEMENT ENGINE MECHANIC, M.A. [facility]-FARM IMPLEMENT ENGINE MECHANIC Orthopedic Progress Note Patient: Azael Agosto Date of : 1965 57 y.o. male Subjective: Patient seen and examined this morning. No complaints or concerns. He remains intermittently confused per nursing. Pain is well controlled on current regimen. Denies fever, CARVER, CP, SOB, N/V, dysuria, new numbness/tingling. Was able to ambulate with PT yesterday 100 feet with out assistance. Vitals reviewed, afebrile Objective: Vitals: 10/05/22 0317 BP: 113/72 Pulse: 83 Resp: 12 Temp: 98.7 F (37.1 C) SpO2: 96% Gen: NAD, cooperative , mildly confused. Cardiovascular: Regular rate. Respiratory: No acute respiratory distress, breathing comfortably. Orthopedic Exam LUE: Splint on left upper extremity in good repair without pinching at proximal or distal ends. CEZAR bandage overlying is clean, dry, and intact without strike-through. Able to flex and extend exposed digits without pain. Sensation globally intact to exposed digits. Exposed digits are warm and well perfused. Recent Labs 10/04/22 0530 WBC 5.3 HGB 13.7 HCT 39.8* PLT See Reflexed IPF Result NA 139 K 4.2 BUN 13 CREATININE 0.8 GLUCOSE 87 Meds: Abx: Ancef DVT ppx: Lovenox See rec for complete list Impression 57 y.o. male who fell from 12 feet being seen for: - Left distal radius fracture Other Injuries: -Subarachnoid hemorrhage -Facial fractures -Left lower extremity laceration. Plan -Plan for OR 10/06/[address] Argueta for ORIF of left distal radius pending risk stratification. Would appreciate recs. - Ancef OCTOR. - Splint on left upper extremity. -Pt was marked for surgery. - NWB to the left upper extremity. - Pain control and medical management per primary. - DVT ppx: Please hold lovenox in anticipation for OR on 10/06/22. - Ice/Elevate left upper extremity to control pain and edema. -Diet: NPO at 12:15am 10/06/22 in anticipation for OR. - Encourage Incentive Spirometry use. - Continue working with PT/OT . - Please page Ortho geographic information systems engineer with any questions. Franklyn Cody DO Orthopedic Surgery Resident, PGY-1 [place], [place] Associated attestation - Jun Argueta DO - 10/06/2022 2:56 PM EDT I reviewed with the resident the medical history and the resident's findings on the physical examination. I discussed with the resident the patient's diagnosis and concur with the plan. I independently performed a history and physical exam on the patient and agree with documentation as above. Patient seen and examined. Patient's present during examination. Overall doing well. Alert during examination. Sitting in chair without issue. Vitals reviewed, afebrile. Pain controlled. General: NAD, Cooperative Cardiovascular: Regular rate, no dependent edema Respiratory: Chest symmetric, no accessory muscle use, normal respirations Left lower extremity: Splint in place. Clean, dry, intact and exposed is warm well perfused. Patient able to wiggle all digits my significant pain or discomfort. Digits are warm and well-perfused. No pain with passive extension of digits. 57 y.o. male who fell from 12 feet being seen for: - Left distal radius fracture Other Injuries: -Subarachnoid hemorrhage -Facial fractures -Left lower extremity laceration. Lengthy discussion had with patient about current clinical state. Maintain splint to left upper extremity. No activities left upper extremity. Plan for OR 10/06/2022 for open reduction internal fixation left distal radius. Ice for pain and swelling. N.p.o. at midnight. All questions answered. Patient and patient's amenable to this plan. Jun Argueta DO Occupational Therapy Facility/Department: [address] [place] Occupational Therapy Daily Treatment Note Name: Azael Agosto : 1965 Date of Service: 10/04/2022 Chief Complaint Patient presents with Fall Discharge Recommendations: Patient would benefit from continued therapy after discharge Patient Diagnosis(es): The primary encounter diagnosis was Closed Galeazzi's fracture of left radius, initial encounter. Diagnoses of Subarachnoid bleed (HCC), Orbital floor (blow-out) closed fracture (HCC), and Closed fracture of left side of maxilla, initial encounter (HCC) were also pertinent to this visit. Past Medical History: has no past medical history on file. Past Surgical History: has no past surgical history on file. Assessment Performance deficits / Impairments: Decreased functional mobility ;Decreased safe awareness;Decreased balance;Decreased ADL status;Decreased high-level IADLs;Decreased endurance Assessment: Pt would benefit from continued OT services to address acute occupational performance deficits s/p fall from 12 ft. Pt demoed visual and cognitive deficits this date that limited occupational performance. Pt unable to demo orientation to place this date w/ x2 VCs from radio script writer. Pt's visual deficits present the largest barrier to occupational performance, as evidenced by Pt's inability to IND read text messages on phone, see water from faucet, see toothpaste and toothbrush, see trash can on floor. Pt's visual deficits present a significant fall risk as he is unable to see tripping hazards, even if they are in the Pt's unobstructed field of vision. Pt required skilled OT intervention for all ADLs demoed this date and would benefit from OT POC that addresses these deficits. Prognosis: Good Decision Making: Medium Complexity REQUIRES OT FOLLOW-UP: Yes Activity Tolerance Activity Tolerance: Patient Tolerated treatment well Plan Occupational Therapy Plan Times Per Week: 4-5x week Restrictions Restrictions/Precautions Restrictions/Precautions: General Precautions, Weight Bearing Required Braces or Orthoses?: Yes Upper Extremity Weight Bearing Restrictions Left Upper Extremity Weight Bearing: Non Weight Bearing Required Braces or Orthoses Left Upper Extremity Brace/Splint: (Sugar tong splint required. Keep C/D/I per ortho Sx.) Position Activity Restriction Other position/activity restrictions: Sinus precautions Subjective General Patient assessed for rehabilitation services?: Yes Family / Caregiver Present: No Diagnosis: Multiple facial Fx, L distal radius Fx s/p fall from 12 feet Subjective Subjective: Pt awake, supine in bed upon OT arrival. Pt agreeable to OT session and pleasant/cooperative throughout. Pt reports 2/10 pain near L nasal cavity. Pt retired sitting EOB w/ tray table and call light in reach. Pt educated to not get up w/o assist from staff. RN aware. General Comment Comments: RN approved OT session Objective Pulse: 88 Heart Rate Source: Monitor BP: 131/88 BP Location: Right upper arm BP Method: Automatic MAP (Calculated): 102 Respirations: 12 SpO2: 93 % on room air Safety Devices Type of Devices: Call light within reach;Gait belt;Nurse notified;Left in bed;Patient at risk for falls Bed Mobility Training Bed Mobility Training: Yes (Pt demoed bed mob w/ Mod IND d/t HOB elevated. Pt able to scoot to EOB w/ IND. Pt maintained NWB LUE w/o VCs.) Overall Level of Assistance: Modified independent Rolling: Modified independent Supine to Sit: Modified independent Sit to Supine: Modified independent Scooting: Independent Balance Sitting: Intact (Pt demoed Good static/dynamic sitting balance while sitting EOB during engagement in ADLs and assessment of orientation w/ IND for ~15 mins) Standing: Intact (Pt demoed Good static/dynamic standing balance w/ SBA during func mob/transfers and sinkside oral hygiene for ~5 mins) Transfer Training Transfer Training: Yes (Pt demoed sit <> stand to/from EOB w/ SUP this date for safety) Overall Level of Assistance: Supervision Sit to Stand: Supervision Stand to Sit: Supervision Gait Overall Level of Assistance: Stand-by assistance (Pt demoed func mob w/ SBA for safety. No DME required this date.) Assistive Device: Gait belt ADL Feeding: Supervision;Setup (Pt demoed beverage mgmt w/ set up, SUP for safety) Grooming: Stand by assistance;Setup;Verbal cueing (Pt demoed oral hygiene while standing sinkside w/ SBA for safety and VCs d/t visual deficits) Vision Vision: Impaired (Pt experiencing significant visual deficits in L eye this date as evidenced by missing water, toothpaste when attempting to wet brush and apply toothpaste. Pt unable to see trash can on floor in front of him. Pt reports this change is new since fall.) Vision Exceptions: Wears glasses at all times Hearing Hearing: Within functional limits Cognition Overall Cognitive Status: Exceptions Arousal/Alertness: Appropriate responses to stimuli Following Commands: Follows multistep commands with increased time Attention Span: Appears intact Memory: Decreased recall of recent events (Pt does not have memory of events that preceeded fall from scaffolding) Safety Judgement: Good awareness of safety precautions (Pt maintained NWB LUE for session duration after radio script writer provided education at session start w/ no further VCs) Problem Solving: Decreased awareness of errors (D/t visual deficits) Insights: Decreased awareness of deficits Initiation: Requires cues for some Sequencing: Requires cues for some Orientation Overall Orientation Status: Within Functional Limits Orientation Level: Oriented to time;Oriented to situation;Oriented to person (Pt reports place is [place]. Elementary [employer] Teacher provided VC, It's a different saint that starts w/ a V. Pt unable to name [place] after cue. [employer] Teacher provided name of facility. Pt then stated, Oh that's right, [facility] is a place in [place]. ) Education Given To: Patient Education Provided: Role of Therapy;Plan of Care;Low Vision Education;Precautions Education Provided Comments: Pt educated on OT role, POC; NWB restrictions to LUE; low vision education and adaptive techniques such as increasing text size on phone w/ Good return. Low vision educational handout provided. D/t cognitive deficits, radio script writer is recommending add'l education for optimal carry over. Education Method: Verbal;Demonstration;Printed Information/Hand-outs Barriers to Learning: None Education Outcome: Verbalized understanding;Continued education needed AM-PAC Score AM-PAC Inpatient Daily Activity Raw Score: 18 (10/04/221744) AM-PAC Inpatient ADL T-Scale Score : 38.66 (10/04/221744) ADL Inpatient CMS 0-100% Score: 46.65 (10/04/221744) ADL Inpatient CMS G-Code Modifier : CK (10/04/221744) Goals Short Term Goals Time Frame for Short Term Goals: Pt will, by discharge: Short Term Goal 1: Dem I with functional transfers with least restrictive device for daily occupations Short Term Goal 2: Dem cga for adl performance with use of adaptive equipment as needed Short Term Goal 3: Dem sba for dynamic mobility with least restrictiive device for household distance Short Term Goal 4: Dem good safety awareness tech for all transfers/mobility Short Term Goal 5: Dem a 12 min dynamic standing task with SBA to increase activity tolerance for ADL's/IADL's demonstrating good balance Short Term Goal 6: Be alert and oriented x 3 each session without cuing (goal met, 10/04/2022 by Abran Salazar/TARA) Therapy Time Individual Concurrent Group Co-treatment Time In 1656 Time Out 1730 Minutes 33 Timed Code Treatment Minutes: 33 Minutes MIKE Salazar [employer] Teacher messaged Dr. Renner to inform him that ST worked with pt and it was recommended that pt can advance to soft, easy to chew diet & that she will mention this recommendation in her note FARM IMPLEMENT ENGINE MECHANIC ALL NOTES Speech Language Pathology [facility] Dysphagia and Cognitive Treatment Note Date: 10/04/2022 Patient s Name: Azael Agosto Diagnosis: Patient Active Problem List Diagnosis Code SAH (subarachnoid hemorrhage) ([facility]) I60.9 Subdural hematoma ([facility]) S06.5XAA Traumatic intracranial subarachnoid hemorrhage ([facility]) S06.6XAA Closed fracture of left distal radius S52.502A Closed Galeazzi's fracture of left radius S52.372A Pain: 0/10 Cognitive Treatment Treatment time: 6842-9014 Subjective: [x] Alert [x] Cooperative [] Confused [] Agitated [] Lethargic Objective/Assessment: Dysphagia: Pt currently on Dysphagia Pureed (Dysphagia I) with thin liquids. Pt and report pt is tolerating diet without difficulty however pt reports distaste for purees. states plastic surgery came and pt does not have any teeth that are loose Pt observed with advanced solid trials. Pt tolerated regular solid x4 with x1 delayed throat clear. Pt tolerated soft solid x2 no overt s/s of aspiration. Pt does report jaw/mouth feels sore during mastication. Pt tolerated sips of thin liquid by straw throughout session. Patient presents with probable safe swallow for Easy to Chew diet with thin liquids. Recommend small sips and bites, only feed when alert and awake and upright at 90 degrees for all PO intake. Recommend close monitoring for overt/clinical s/s of aspiration and D/C PO intake and complete Modified Barium Swallow Study should they occur. Results and recommendations reported to RN. Recall: Delayed recall of 3 unrelated units with distraction: 3/3 independently x3. 2/3 increased to 3/3 with mod verbal cue. Organization: Word associations: 5/6 increased to 6/6 with mod verbal cue (also required repetitions- likely due to difficulty hearing stimuli) Problem Solving/Reasoning: Word deductions: 4/8 increased to 8/8 with mod-max verbal cues Stating situational problems: 9/12 increased to 12/12 with min verbal cues Other: Note occasional difficulty word finding during session. Pt implemented word finding strategies with min-mod verbal cues Plan: [x] Continue ST services [] Discharge from ST: Discharge recommendations: [x] Further therapy recommended at discharge.The patient should be able to tolerate at least 3 hours of therapy per day over 5 days or 15 hours over 7 days. [x] Further therapy recommended at discharge. [] No therapy recommended at discharge. Treatment completed by: SUDHEER Haq, M.S. [facility]-FARM IMPLEMENT ENGINE MECHANIC Physical Therapy Facility/Department: [address] Physical Therapy Name: Azael Agosto : 1965 Date of Service: 10/04/2022 Discharge Recommendations: Patient would benefit from continued therapy after discharge Patient Diagnosis(es): The primary encounter diagnosis was Closed Galeazzi's fracture of left radius, initial encounter. Diagnoses of Subarachnoid bleed (HCC), Orbital floor (blow-out) closed fracture (HCC), and Closed fracture of left side of maxilla, initial encounter ([facility]) were also pertinent to this visit. Past Medical History: has no past medical history on file. Past Surgical History: has no past surgical history on file. Assessment Body Structures, Functions, Activity Limitations Requiring Skilled Therapeutic Intervention: Decreased functional mobility ;Decreased strength;Decreased balance Assessment: Not short of breath with 100' of gait. Becomes too close to ojects (furniture, doorways) when his attention is not drawn to it. When he is told to navigate purposefully around the obstacles therapist placed in his path, he is safer. Disoriented to the month, season. Patient needs close monitoring due to his poor safety awareness. Therapy Prognosis: Good Requires PT Follow-Up: Yes Plan Physcial Therapy Plan General Plan: (5-6x/wk) Current Treatment Recommendations: Strengthening, Balance training, Functional mobility training, Transfer training, Stair training, Gait training, Safety education & training, Therapeutic activities, Patient/Caregiver education & training Safety Devices Type of Devices: Nurse notified, Left in bed, Gait belt, Call light within reach, Patient at risk for falls, Bed alarm in place Restraints Restraints Initially in Place: No Restrictions Restrictions/Precautions Restrictions/Precautions: Fall Risk, Weight Bearing, Bed Alarm Required Braces or Orthoses?: No Upper Extremity Weight Bearing Restrictions Left Upper Extremity Weight Bearing: Non Weight Bearing Position Activity Restriction Other position/activity restrictions: DARIEN splinted for distal radius fracture, Plan for OR 10/06/[address] Argueta. Sinus precautions-no blowing nose Subjective Pain: Denies any pain General Patient assessed for rehabilitation services?: Yes Family / Caregiver Present: No Follows Commands: Within Functional Limits Subjective Subjective: Denies any pain Vision/Hearing Vision Vision: (Left eye edematous, bruised. He was cued to look down the b[place]ista, describe vision. One eye covered, then the other. He indicated both eyes look normal to him.) Cognition Orientation Orientation Level: Oriented to person;Oriented to place;Disoriented to time;Disoriented to situation ( April or May Therapist cued him that, no, it was not end of winter/beginning of spring. He was given a moment to think, asked again. Said It must be June. ) Cognition Overall Cognitive Status: Exceptions Arousal/Alertness: Appropriate responses to stimuli Following Commands: Follows one step commands with repetition;Follows one step commands with increased time Attention Span: Attends with cues to redirect Memory: Decreased jail memory Safety Judgement: Decreased awareness of need for safety;Decreased awareness of need for assistance Problem Solving: Assistance required to generate solutions;Assistance required to correct errors made Insights: Decreased awareness of deficits Initiation: Requires cues for some Sequencing: Requires cues for some Objective Pulse: 56 Heart Rate Source: Monitor BP: 115/76 BP Location: Right upper arm BP Method: Automatic Patient Position: Semi fowlers MAP (Calculated): 89 Respirations: 10 SpO2: 97 % O2 Device: None (Room air) Observation/Palpation Observation: Eye/face trauma. Left forearm splinted. Bed mobility Supine to Sit: Stand by assistance Sit to Supine: Stand by assistance Transfers Sit to Stand: Stand by assistance Stand to Sit: Stand by assistance Ambulation Surface: Level tile Device: No Device Assistance: Contact guard assistance Quality of Gait: Mild veering, becomes too close to objects, bumping slightly Distance: 100' More Ambulation?: Yes Ambulation 2 Surface - 2: level tile Device 2: No device Assistance 2: Contact guard assistance Quality of Gait 2: Several objects were placed in his path, He navigated around those, pointing them out as he passed. Distance: 100' Balance Sitting - Static: Good Sitting - Dynamic: Good Standing - Static: Fair Standing - Dynamic: Fair Comments: Standing balance training with feet in [place], no UE support, periods of eyes closed 10 seconds. A/AROM Exercises: Standing hip flexion marches, cues for moving slowly and challenging balance x10 reps. Heel toe/raises with one hand on walker and cued to complete the movement and don't lose his balance. 15 reps completed, light CGA needed. AM-PAC Score AM-PAC Inpatient Mobility Raw Score : 20 (10/04/221228) AM-PAC Inpatient T-Scale Score : 47.67 (10/04/221228) Mobility Inpatient CMS 0-100% Score: 35.83 (10/04/221228) Mobility Inpatient CMS G-Code Modifier : CJ (10/04/221228) Goals Short Term Goals Time Frame for Short Term Goals: 10 visits Short Term Goal 1: transfers with SBA. Progress here. Goal nearly met. Short Term Goal 2: amb 150 ft without a device x SBA Short Term Goal 3: ascend/descend 4 steps with SBA Short Term Goal 4: 20 min strengthening exercise program x SBA Education Patient Education Education Given To: Patient Education Provided: Role of Therapy;Plan of Care Education Provided Comments: Reason for NWB status, i.e. independent of presence of pain. Education Method: Demonstration;Verbal Education Outcome: Verbalized understanding Therapy Time Individual Concurrent Group Co-treatment Time In 1155 Time Out 1220 Minutes 25 Timed Code Treatment Minutes: 25 Minutes Rhina Lau PT Images from the original note were not included. PROGRESS NOTE PATIENT NAME: Azael Agosto DATE: 10/04/2022 PRIMARY CARE PHYSICIAN: No primary care provider on file. HD: # 3 ASSESSMENT Patient Active Problem List Diagnosis SAH (subarachnoid hemorrhage) (HCC) Subdural hematoma (HCC) Traumatic intracranial subarachnoid hemorrhage (HCC) Closed fracture of left distal radius Closed Galeazzi's fracture of left radius MEDICAL DECISION MAKING AND PLAN SAH/SDH Appreciate neurosurgery recommendations Repeat CT stable 2. MSK 1. Multiple facial fx 1. Ancef 2. Sinus precautions 2. Left distal radius fx 1. Ortho now planning intervention 3. Skin 1. Laceration repair left grace 4. Faciale fxs Evaluated by plastics, no acute intervention 5. Okay for diet 6. Pain control, MMPT 7. PT/OT 8. I-S/deep breathing 9. Dispo planning SUBJECTIVE Azael Agosto and examined at bedside this morning, no acute events overnight. Pain is controlled. Taking in some p.o. without nausea or emesis. Passing flatus. OBJECTIVE VITALS: Temp: Temp: 98.5 F (36.9 C)Temp Av.4 F (36.9 C) Min: 98.1 F (36.7 C) Max: 98.7 F (37.1 C) BP Systolic (24hrs), Av , Min:111 , Max:133 Diastolic (24hrs), Av, Min:75, Max:83 Pulse Pulse Av Min: 56 Max: 69 Resp Resp Av.8 Min: 10 Max: 13 Pulse ox SpO2 Av.8 % Min: 94 % Max: 97 % Physical Exam Constitutional: awake HENT: Head: normcephalix, bruising, ptosis left eye Eyes: Pupils: PEERL Cardiovascular: Rate and Rhythm: normal Pulses: normal Pulmonary: Effort: normal Breath sounds: clear, wheezing, rales rhonchi Abdominal: General: soft Palpations: nontender Skin: General: lacer repair left grace LAB: CBC: Recent Labs 10/02/2231010/03/22 0828 10/04/22 0530 WBC 7.4 5.6 5.3 HGB 13.3 12.6* 13.7 HCT 40.2* 37.8* 39.8* MCV 94.8 94.7 91.7 PLT 139 141 See Reflexed IPF Result BMP: Recent Labs 10/02/2231010/03/22 0828 10/04/22 0530 NA 138 138 139 K 4.0 4.0 4.2 CL 105 105 105 CO2 23 21 24 BUN 19 14 13 CREATININE 0.8 0.8 0.8 GLUCOSE 108* 92 87 RADIOLOGY: XR CHEST PORTABLE Result Date: 10/03/2022 EXAMINATION: ONE XRAY VIEW OF THE CHEST 10/03/2022 6:06 pm COMPARISON: CT chest October 01, 2022 HISTORY: ORDERING SYSTEM PROVIDED HISTORY: Preop TECHNOLOGIST PROVIDED HISTORY: Preop Reason for Exam: Upright port, pre op FINDINGS: The lungs are without acute focal process. There is no effusion or pneumothorax. The cardiomediastinal silhouette is without acute process. The osseous structures are without acute process. No acute process. Nick Renner DO 10/02/22, 12:02 PM Attestation signed by Gaurav Lopez MD I personally evaluated the patient and directed the medical decision making with Resident/ASHA after the physical/radiologic exam and laboratory values were reviewed and confirmed. Gaurav Lopez MD Plastics - [place] Patient awake and alert, in good spirits. On exam, teeth are fitting properly. No instability of maxilla on rocking. Slight blurriness to left eye. EOMI and full, no entrapment. No diplopia on upward gaze. No surgical intervention planned at this time. F/U my [place] office 1 week. Will need to monitor for late development of entrapment/diplopia. Following. [employer] messaged Dr. Renner to clarify for pt when pt will be having surgery;also inquired if pt would be switched from pureed to reg diet per his note yesterday 1035 - Brenna responded as Dr. Renner was in OR;and she advised pt diet should remain pureed as it was the recommendations per ST;also pt will be having surgery on 10/06 Orthopedic Progress Note Patient: Azael Agosto Date of : 1965 57 y.o. male Subjective Patient seen and examined this morning. Patient has been resting comfortably throughout the night per nursing with no complaints or concerns. Pain controlled on current regimen. Denies fever, CARVER, CP, SOB, N/V, dysuria. No new numbness or tingling. Was able to work with PT yesterday and ambulated 35 ft without a device and min assist. Vitals reviewed, afebrile. Objective Vitals: 10/04/22 0424 BP: 115/76 Pulse: 56 Resp: 10 Temp: 98.5 F (36.9 C) SpO2: 97% Gen: NAD, Cooperative. Cardiovascular: Regular Rate Respiratory: No accessory muscle use, regular rate, chest symetric MSK: LUE: Sugar tong Splint in place. C/D/I. Hand is warm and well perfused with BCR. Motor/sensory exam limited due to current clinical disposition. No pain with flexion/extension of fingers and thumb. Recent Labs 10/01/22 1015 10/02/22 0311 10/03/22 0828 WBC 11.4* < > 5.6 HGB 14.3 < > 12.6* HCT 41.2 < > 37.8* PLT 215 < > 141 INR 1.0 -- -- NA 141 < > 138 K 4.0 < > 4.0 BUN 27* < > 14 CREATININE 1.2 < > 0.8 GLUCOSE 141* < > 92 < > = values in this interval not displayed. Impression 57 y.o. male who fell from 12ft being seen for: - Left distal radius fracture. Other Injuries: -Subarachnoid hemorrhage -Facial fractures -Left lower extremity laceration. Plan - Plan for ORIF of Left DR 10/06/22. - WB status: NWB to the left upper extremity - Splint in place maintain and keep C/D/I. - Primary Team: Trauma Surgery - Pain Management: Per primary team - Antibiotics: Ancef for facial fractures - DVT ppx: Lovenox, hold on 10/05 in anticipation for OR 10/06. - Ice/Elevate for Pain and Swelling - Encourage Incentive Spirometry use - Please page the Cleaning Supervisor Ortho resident with any questions. Jaden Stone MD Orthopedic Surgery Resident, PGY-1 [place], [place] Images from the original note were not included. MARLEY Renner DO PGY 5 General Surgery Resident 10/03/22 4:35 PM Occupational Therapy Facility/Department: [address] [facility] Occupational Therapy Initial Assessment Name: Azael Agosto : 1965 Date of Service: 10/03/2022 Discharge Recommendations: Patient would benefit from continued therapy after discharge Copied from Emergency Medicine: Azael Agosto is a 57 y.o. male who presents as an adult trauma priority for fall from 12 ft from a ladder. Per life flight he was reportedly unresponsive x12 minutes. He was noted to have been spitting up blood but this is thought to be secondary from nosebleed. Patient was protecting airway. Denies use of blood thinners and denies aspirin. Patient just stating that his head hurts at this time. Patient did receive pain medication and Zofran in route to the hospital Patient Diagnosis(es): The primary encounter diagnosis was Closed Galeazzi's fracture of left radius, initial encounter. Diagnoses of Subarachnoid bleed (HCC), Orbital floor (blow-out) closed fracture (HCC), and Closed fracture of left side of maxilla, initial encounter ([facility]) were also pertinent to this visit. Past Medical History: has no past medical history on file. Past Surgical History: has no past surgical history on file. Treatment Diagnosis: SAH s/p Fall Assessment Pt lying supine in bed upon entrance to room. Pt completed bed mobility with contact guard assistance. Pt sat at eob 10 minutes with good unsupported sitting balance with flexed forward posture. Pt requires verbal cuing to hold head upright and verbal reminders for NWB LUE. Pt tends to start to push off LUE from bed and was leaning on LUE while seated. Sit to stand with contact guard assistance. Pt completed dynamic mob in room with contact guard assistance. Pt impulsive, moving fast. When returning to bed, pt had a loss of balance requiring min a to correct. Pt ed on slowing down for safety with poor insight. Please refer to below assist levels for adl completion. Pt ed on OT POC, safety awareness tech, proper hand placement for transfers, with fair return. Pt also ed on the proper use of incentive spirometer, pt completed a set of 10 reaching 2000 ml's with increased difficulty following directions. Pt encouraged to complete 10 reps every hour with pt verbalizing agreement. Pt retired supine in bed with call light and phone in reach. All needs met upon exit. Performance deficits / Impairments: Decreased functional mobility ;Decreased safe awareness;Decreased balance;Decreased ADL status;Decreased high-level IADLs;Decreased endurance Treatment Diagnosis: SAH s/p Fall Prognosis: Good Decision Making: Medium Complexity REQUIRES OT FOLLOW-UP: Yes Plan Occupational Therapy Plan Times Per Week: 4-5 x week(TRAUMA) Restrictions Restrictions/Precautions Restrictions/Precautions: Fall Risk, Weight Bearing, Bed Alarm Required Braces or Orthoses?: No Upper Extremity Weight Bearing Restrictions Left Upper Extremity Weight Bearing: Non Weight Bearing Position Activity Restriction Other position/activity restrictions: LUE splinted for distal radius fracture, Plan for OR 10/04/[address] Argueta pending risk stratification for LUE. Sinus precautions-no blowing nose CT facial bones shows nasal and septal fracture, maxillary wall fractures, left zygomatic arch fracture, left orbital floor blowout fracture without muscle herniation. Subjective General Patient assessed for rehabilitation services?: Yes Family / Caregiver Present: Yes (spouse present at beginning and end of session) pt c/o head pain 06/29. RN informed Social/Functional History Social/Functional History Lives With: Spouse, Family (dtr and 3 gr children ages 9,6,and 5 yrs old) Type of Home: House Home Layout: Two level, Bed/Bath upstairs, 1/2 bath on main level (full bath in basement, tub shower combo, curtain) Home Access: Stairs to enter with rails Entrance Stairs - Number of Steps: 4 steps to enter Entrance Stairs - Rails: Right Bathroom Shower/Tub: Tub/Shower unit, Curtain Bathroom Toilet: Standard Home Equipment: None Has the patient had two or more falls in the past year or any fall with injury in the past year?: No Receives Help From: Family (supportive spouse works days 10-4pm. 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 pt ed to slow down and take time for increased safety. Pts spouse reports pts personality is moving quickly.) Interventions: Safety awareness training Assistive Device: (none) AROM: (RUE WFL's. Due to limitation of splint and fracture, only able to complete shoulder flexion WFL's. pt splinted mp's to proximal elbow) PROM: (RUE WFL's. Due to limitation of splint and fracture, only able to complete shoulder flexion WFL's. pt splinted mp's to proximal elbow) Strength: (RUE 4/5 throughout. LUE NT due to fracture) Coordination: (RUE WFL's. LUE impaired due to splint. pt only able to oppose thumb to index finger.) Tone: Normal Sensation: Intact (pt denies numbness/tingling B hands) ADL Feeding: Minimal assistance;Setup;Increased time to complete (opening containers. pt I with hand to mouth patterning) Grooming: Minimal assistance (pt I with washing hand to mouth patterning, difficulty with opening containers) UE Bathing: Minimal assistance (assist for back) LE Bathing: Minimal assistance;Increased time to complete;Setup;Verbal cueing (pt demonstrates impulsivity with movement, verbal cuing to slow down. Pt requires verbal cuing for non weight bearing LUE. Decreased functional reach with balance) UE Dressing: Minimal assistance (pt able to thread BUE's in and out of hosp gown, assist to tie gown in back) LE Dressing: Minimal assistance;Setup;Verbal cueing;Increased time to complete (pt demonstrates impulsivity with movement, verbal cuing to slow down. Pt requires verbal cuing for non weight bearing LUE. Decreased functional reach with balance) Toileting: Contact guard assistance (for safety with balance and impulsiveness) Activity Tolerance Activity Tolerance: Patient limited by fatigue;Patient limited by endurance Bed mobility Supine to Sit: Contact guard assistance Sit to Supine: Contact guard assistance Scooting: Contact guard assistance Bed Mobility Comments: HOB elevated ~ 30 degrees, no bed rails utilized Transfers Sit to stand: Contact guard assistance Stand to sit: Contact guard assistance Transfer Comments: pt impulsive, attempting to stand at eob without warning. pt moves quickly Vision - Basic Assessment Patient Visual Report: No visual complaint reported. Vision Vision: Impaired Vision Exceptions: Wears glasses at all times Hearing Hearing: Within functional limits Cognition Overall Cognitive Status: Exceptions Following Commands: Follows one step commands with repetition;Follows one step commands with increased time Attention Span: Attends with cues to redirect Memory: Decreased recall of recent events Safety Judgement: Decreased awareness of need for safety;Decreased awareness of need for assistance Insights: Decreased awareness of deficits Initiation: Requires cues for some Sequencing: Requires cues for some Orientation Overall Orientation Status: Impaired Orientation Level: Oriented to person;Oriented to place;Disoriented to time (pt stated it was May, or 2023. Reoriented pt) LUE PROM (degrees) LUE General PROM: Due to limitation of splint and fracture, only able to complete shoulder flexion WFL's. pt splinted mp's to proximal elbow LUE AROM (degrees) LUE General AROM: Due to limitation of splint and fracture, pt only able to demonstrate shoulder flexion WFL's. pt splinted mp's to proximal elbow Left Hand PROM (degrees) Left Hand PROM: Exceptions Left Hand General PROM: opposition WFLS. other movement with limitation of splint and fracture Left Hand AROM (degrees) Left Hand AROM: Exceptions Left Hand General AROM: LUE splinted, only able to oppose thumb to index finger due to limitation of splint and fracture RUE PROM (degrees) RUE PROM: WFL RUE AROM (degrees) RUE AROM : WFL Right Hand PROM (degrees) Right Hand PROM: WFL Right Hand AROM (degrees) Right Hand AROM: WFL Hand Dominance Hand Dominance: Right AM-PAC Score AM-[facility] Inpatient Daily Activity Raw Score: 18 (10/03/22 1321) -[facility] Inpatient ADL T-Scale Score : 38.66 (10/03/22 132) ADL Inpatient CMS 0-100% Score: 46.65 (10/03/22 132) ADL Inpatient [facility] G-Code Modifier : CK (10/03/221320) Goals Short Term Goals Time Frame for Short Term Goals: Pt will, by discharge: Short Term Goal 1: Dem I with functional transfers with least restrictive device for daily occupations Short Term Goal 2: Dem cga for adl performance with use of adaptive equipment as needed Short Term Goal 3: Dem sba for dynamic mobility with least restrictiive device for household distance Short Term Goal 4: Dem good safety awareness tech for all transfers/mobility Short Term Goal 5: Dem a 12 min dynamic standing task with SBA to increase activity tolerance for ADL's/IADL's demonstrating good balance Short Term Goal 6: Be alert and oriented x 3 each session without cuing Therapy Time Individual Concurrent Group Co-treatment Time In 1005 Time Out 1054 Minutes 49 Timed Code Treatment Minutes: 38 Minutes Partial Co eval with PT WILFRIDO GARCIA OTR/L Images from the original note were not included. PROGRESS NOTE PATIENT NAME: Azael Agosto DATE: 10/03/2022 PRIMARY CARE PHYSICIAN: No primary care provider on file. HD: # 2 ASSESSMENT Patient Active Problem List Diagnosis SAH (subarachnoid hemorrhage) (HCC) Subdural hematoma (HCC) Traumatic intracranial subarachnoid hemorrhage (HCC) Closed fracture of left distal radius Closed Galeazzi's fracture of left radius MEDICAL DECISION MAKING AND PLAN SAH/SDH Appreciate neurosurgery recommendations Repeat CT stable 2. MSK 1. Multiple facial fx 1. Ancef 2. Sinus precautions 2. Left distal radius fx 1. Surgical plan nonop however now plan for operative intervention tomorrow 3. Skin 1. Laceration repair left grace 4. Okay for regular diet 5. Pain control, MMPT 6. PT/OT 7. I-S/deep breathing 8. Dispo, to remain inpatient SUBJECTIVE Azael Agosto and examined at bedside this morning, no acute events overnight. Pain is controlled. Taking deep breaths. Taking in some p.o. without nausea or emesis. OBJECTIVE VITALS: Temp: Temp: 98.6 F (37 C)Temp Av.4 F (36.9 C) Min: 98.1 F (36.7 C) Max: 98.6 F (37 C) BP Systolic (24hrs), Av , Min:102 , Max:132 Diastolic (24hrs), Av, Min:52, Max:92 Pulse Pulse Av.8 Min: 54 Max: 98 Resp Resp Av.4 Min: 9 Max: 34 Pulse ox SpO2 Av.7 % Min: 95 % Max: 100 % Physical Exam Constitutional: awake HENT: Head: normcephalix, bruising, ptosis left eye Eyes: Pupils: PEERL Cardiovascular: Rate and Rhythm: normal Pulses: normal Pulmonary: Effort: normal Breath sounds: clear, wheezing, rales rhonchi Abdominal: General: soft Palpations: nontender Skin: General: lacer repair left grace LAB: CBC: Recent Labs 10/01/22 1015 10/02/22 0311 10/03/22 0828 WBC 11.4* 7.4 5.6 HGB 14.3 13.3 12.6* HCT 41.2 40.2* 37.8* MCV 92.4 94.8 94.7 PLT 215 139 141 BMP: Recent Labs 10/01/22 1015 10/02/22 0311 10/03/22 0828 NA 141 138 138 K 4.0 4.0 4.0 CL 107 105 105 CO2 20 23 21 BUN 27* 19 14 CREATININE 1.2 0.8 0.8 GLUCOSE 141* 108* 92 RADIOLOGY: XR WRIST LEFT (MIN 3 VIEWS) Result Date: 10/02/2022 EXAMINATION: 3 XRAY VIEWS OF THE LEFT WRIST 10/02/2022 9:03 pm COMPARISON: Left wrist radiograph series performed earlier today. HISTORY: ORDERING SYSTEM PROVIDED HISTORY: Trauma/Fracture. Reason for Exam: fracture FINDINGS: *Unchanged comminuted, Y configured articular 2 cortex width radial displaced mildly impacted distal radial metaphysis fracture. *Possible acute, nondisplaced distal ulnar fracture versus overlying artifact. *Diffuse left wrist soft tissue edema. *Overlying splint material obscures detail greatly. 1. Unchanged comminuted, Y configured articular 2 cortex width radial displaced mildly impacted distal radial metaphysis fracture. 2. Possible acute, nondisplaced distal ulnar fracture versus overlying artifact. 3. Diffuse left wrist soft tissue edema. 4. Overlying splint material obscures detail greatly. Nick RennerDO 10/02/22, 11:55 AM Associated attestation - Diego Smith MD - 10/03/2022 4:09 PM EDT I personally evaluated the patient and directed the medical decision making with Resident/ASHA after the physical/radiologic exam and laboratory values were reviewed and confirmed. Diego Smith MD Physical Therapy Facility/Department: [address] [facility] Physical Therapy Initial Assessment Name: Azael Agosto : 1965 Date of Service: 10/03/2022 Discharge Recommendations: Patient would benefit from continued therapy after discharge Patient Diagnosis(es): The primary encounter diagnosis was Closed Galeazzi's fracture of left radius, initial encounter. Diagnoses of Subarachnoid bleed (HCC), Orbital floor (blow-out) closed fracture (HCC), and Closed fracture of left side of maxilla, initial encounter (HCC) were also pertinent to this visit. Past Medical History: has no past medical history on file. Past Surgical History: has no past surgical history on file. Assessment Body Structures, Functions, Activity Limitations Requiring Skilled Therapeutic Intervention: Decreased functional mobility ;Decreased strength;Decreased endurance;Decreased balance Assessment: The pt ambulated 35 ft without a device x min assist. He was mildly unsteady at times but had no c/o pain or dizziness with mobilization. He could benefit from a continuation of PT for gait and strengthening following his DC Therapy Prognosis: Good Decision Making: Medium Complexity Requires PT Follow-Up: Yes Activity Tolerance Activity Tolerance: Patient limited by fatigue;Patient limited by endurance Plan Physcial Therapy Plan General Plan: (5-6x wk) Current Treatment Recommendations: Strengthening, Balance training, Functional mobility training, Transfer training, Endurance training, Stair training, Gait training, Safety education & training Safety Devices Type of Devices: Nurse notified, Left in bed, Gait belt, Call light within reach, Patient at risk for falls, Bed alarm in place Restraints Restraints Initially in Place: No Restrictions Restrictions/Precautions Restrictions/Precautions: Weight Bearing, General Precautions Upper Extremity Weight Bearing Restrictions Left Upper Extremity Weight Bearing: Non Weight Bearing Subjective General Patient assessed for rehabilitation services?: Yes Response To Previous Treatment: Not applicable Family / Caregiver Present: No Follows Commands: Within Functional Limits Subjective Subjective: No c/o pain Social/Functional History Social/Functional History Lives With: Spouse, Family (dtr and 3 gr children ages 9,6,and 5 yrs old) Type of Home: House Home Layout: Two level, Bed/Bath upstairs, 1/2 bath on main level (full bath in basement, tub shower combo, curtain) Home Access: Stairs to enter with rails Entrance Stairs - Number of Steps: 4 steps to enter Entrance Stairs - Rails: Right Bathroom Shower/Tub: Tub/Shower unit, Curtain Bathroom Toilet: Standard Home Equipment: None Has the patient had two or more falls in the past year or any fall with injury in the past year?: No Homemaking Responsibilities: Yes Ambulation Assistance: Independent Transfer Assistance: Independent Active Packaging Coordinator: Yes Mode of Transportation: Truck 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 for [employer] Leisure & Hobbies: Flower and vegetable gardening Vision/Hearing Vision Vision: Impaired Vision Exceptions: Wears glasses at all times (present in hosp) Hearing Hearing: Within functional limits Cognition Orientation Overall Orientation Status: Impaired Orientation Level: Oriented to situation;Oriented to person;Oriented to place;Disoriented to time Cognition Overall Cognitive Status: Exceptions Following Commands: Follows one step commands consistently Attention Span: Appears intact Memory: Decreased recall of recent events Safety Judgement: Decreased awareness of need for safety;Decreased awareness of need for assistance Insights: Decreased awareness of deficits Initiation: Requires cues for some Sequencing: Requires cues for some Objective Pulse: 87 Heart Rate Source: Monitor BP: 129/69 BP Location: Right upper arm BP Method: Automatic MAP (Calculated): 89 Respirations: 12 SpO2: 95 % O2 Device: None (Room air) AROM RLE (degrees) RLE AROM: WNL AROM LLE (degrees) LLE AROM : WNL AROM RUE (degrees) RUE AROM : WNL AROM LUE (degrees) LUE General AROM: In splint Strength RLE Strength RLE: WNL Strength LLE Strength LLE: WNL Strength RUE Strength RUE: WFL Strength LUE Comment: N/T Bed mobility Supine to Sit: Contact guard assistance Sit to Supine: Contact guard assistance Scooting: Contact guard assistance Transfers Sit to Stand: Contact guard assistance Stand to Sit: Contact guard assistance Ambulation Surface: Level tile Device: No Device Assistance: Minimal assistance Distance: amb 35 ft without a device x min assist Comments: The pt ambulated with some mild unsteadiness Balance Posture: Good Sitting - Static: Good Sitting - Dynamic: Fair Standing - Static: Fair Standing - Dynamic: Fair OutComes Score AM-PAC Score AM-PAC Inpatient Mobility Raw Score : 20 (10/03/221054) AM-PAC Inpatient T-Scale Score : 47.67 (10/03/221054) Mobility Inpatient CMS 0-100% Score: 35.83 (10/03/221054) Mobility Inpatient CMS G-Code Modifier : CJ (10/03/221054) Tinneti Score Goals Short Term Goals Time Frame for Short Term Goals: 10 visits Short Term Goal 1: transfers with SBA Short Term Goal 2: amb 150 ft without a device x SBA Short Term Goal 3: ascend/descend 4 steps with SBA Short Term Goal 4: 20 min strengthening exercise program x SBA Education Patient Education Education Given To: Patient Education Provided: Role of Therapy;Plan of Care Education Method: Demonstration;Verbal Barriers to Learning: Vision Education Outcome: Verbalized understanding Therapy Time Individual Concurrent Group Co-treatment Time In 1005 Time Out 1030 Minutes 25 Edinson Romero PT Orthopedic Progress Note Patient: Azael Agosto Date of : 1965 57 y.o. male Subjective: Patient seen and examined this morning. No complaints or concerns. No issues overnight per nursing. Pain is well controlled on current regimen. Denies fever, CARVER, CP, SOB, N/V, dysuria, new numbness/tingling. He has not been working with physical therapy due to bedrest order. Vitals reviewed, afebrile Objective: Vitals: 10/03/22 0408 BP: Pulse: Resp: 14 Temp: SpO2: Gen: NAD, cooperative Cardiovascular: Regular rate Respiratory: No acute respiratory distress, breathing comfortably Orthopedic Exam LUE: Splint on left upper extremity, in good repair without pinching at proximal or distal ends. CEZAR bandage overlying is clean, dry, and intact without strike-through. Exposed digits are warm and well perfused. Exposed digits can flex and extend. Sensation is grossly intact. Recent Labs 10/01/22 1015 10/02/22 0311 WBC 11.4* 7.4 HGB 14.3 13.3 HCT 41.2 40.2* PLT 215 139 INR 1.0 -- NA 141 138 K 4.0 4.0 BUN 27* 19 CREATININE 1.2 0.8 GLUCOSE 141* 108* Meds: Abx: Ancef DVT ppx: Lovenox See rec for complete list Impression 57 y.o. male who fell from 12 feet being seen for: -Left Distal Radius fracture Other injuries: -Subarachnoid Hemorrhage -Facial fractures -Left lower extremity laceration Plan - Plan for OR 10/04/[address] Argueta pending risk stratification. Would appreciate recs. - Splint on left upper extremity. Okay to reinforce/maintain by nursing if necessary. Please notify Ortho if saturated. - NWB to the left upper extremity. - Pain control and medical management per primary. - DVT ppx: Lovenox - Ice/Elevate left upper extremity to control pain and edema -Diet: NPO at midnight in anticipation for OR 10/04/22. -Not currently working with PT/OT due to bedrest order. - F/u with Dr. Argueta. - Please page Ortho geographic information systems engineer with any questions Franklyn Cody DO Orthopedic Surgery Resident, PGY-1 [place], [place] Associated attestation - Jun Argueta DO - 10/03/2022 5:30 PM EDT I reviewed with the resident the medical history and the resident's findings on the physical examination. I discussed with the resident the patient's diagnosis and concur with the plan. I independently performed a history and physical exam on the patient and agree with documentation as above. Patient seen and examined. Patient's present during my examination. Patient very somnolent, not responding to questions. Patient's states he has been very tired, and slept most of the day. Vitals reviewed, afebrile. General: NAD, somnolent Cardiovascular: Regular rate, no dependent edema Respiratory: Chest symmetric, no accessory muscle use, normal respirations Left upper extremity: Splint in place. Clean, dry, intact. Hand is warm well perfused. No pain with passive extension of digits. Unable to assess motor/sensory function due to patient's current clinical state. 57 y.o. male who fell from 12 feet being seen for: -Left Distal Radius fracture Other injuries: -Subarachnoid Hemorrhage -Facial fractures -Left lower extremity laceration Lengthy discussion had with patient's about current clinical state. Repeat images were obtained, mild displacement noted, recommend operative intervention in the form of open reduction internal fixation, if patient medically cleared for surgery, will plan for operative intervention 10/06/2022. Ice for pain and swelling. All questions answered. Patient's amenable to this plan. Jun Argueta DO Images from the original note were not included. Trauma/Surgical Critical Care Sign Out Note: Code Status: Full Code Mode of provider to provider communication: [] Via telephone [x] In person Date and time of sign-out: 10/02/2022 4:35 PM Criteria Met for Transfer: [x] Oxygen saturation is > 90% on FiO2< 50% (exceptions may be made for patient pathophysiology) [x] Vital signs remain at or near baseline without pharmaceutical adjuncts, blood products, or > 2L fluid bolus in the last 24 hours [x] No suspicion or evidence of a new untreated infection (confusion, cool or cyanotic extremities, poor capillary refill, metabolic acidosis, low urine output) [x] Stable GCS, seizures controlled, no invasive neurological monitoring [x] Altered mental status is stable and able to be safely managed outside the ICU [x] No deterioration in renal function in the last 24 hours (creatinine > 50% increase, new onset oliguria) [] Patient care needs do not exceed the capabilities of the unit they are being transferred to (suctioning needs, glucose monitoring, neurological monitoring, neurovascular checks, vital sign monitoring, I&O monitoring, drain management [x] No longer requiring mechanical ventilation via endotracheal intubation and/or decreasing O2/CPAP requirements [x] No need for medications that cannot be administered outside the ICU Reason for ICU admission: Fall 12ft, GCS 13, +LOC 12min Injuries: BIG3 SAH, multiple facial fxs, L radius fx ICU course summary: 10/01: admitted to TICU, laceration repair of left grace, L radius reduction, anterior left lower extremity laceration repair 10/02: stable head CT scan, DVT prophylaxis, transfer to step down Procedures during ICU stay: Splinting of left arm Current vitals: Temp: Temp: 98.7 F (37.1 C)Temp Av.9 F (37.2 C) Min: 98.4 F (36.9 C) Max: 99.5 F (37.5 C) BP Systolic (24hrs), Av , Min:102 , Max:148 Diastolic (24hrs), Av, Min:52, Max:91 Pulse Pulse Av.8 Min: 56 Max: 100 Resp Resp Av.1 Min: 8 Max: 19 Pulse ox SpO2 Av.8 % Min: 93 % Max: 99 % Consults: Orthopedic surgery PlanLeft distal radius fracture, nonop Neurosurgery No intervention Transfer Checklist: [x] Vital signs changed to q4 hours x 48 hours, continuous telemetry x 48 hours [x] Provider assessment BID x 48 hours [x] Daily labs x 48 hours [] Tertiary note completed [] Frailty index completed [] Geriatrics consult placed/called if applicable [x] Medications/orders reviewed [x] Updated photographs of wounds [] Wound dressing orders placed if applicable Plan and recommended follow-up: Work with pt/ot Images from the original note were not included. Physical Therapy Physical Therapy Cancel Note DATE: 10/02/2022 NAME: Azael Agosto : 1965 Patient not seen this date for Physical Therapy due to: Other: Bedrest in place. Will assess 10/03 as able. FARM IMPLEMENT ENGINE MECHANIC ALL NOTES Facility/Department: [facility] CAR 1- SICU Initial Speech/Language/Cognitive Assessment NAME: Azael Agosto : 1965 ADMISSION DATE: 10/01/2022 ADMITTING DIAGNOSIS: has SAH (subarachnoid hemorrhage) (HCC); Subdural hematoma (HCC); Traumatic intracranial subarachnoid hemorrhage (HCC); and Closed fracture of left distal radius on their problem list. Date of Eval: 10/02/2022 Evaluating Therapist: SUDHEER Haq RECENT RESULTS CT OF HEAD/MRI: 10/01/22 Redemonstration of multifocal subarachnoid hemorrhage/cortical hemorrhage at the upper medial aspect of right frontal lobe, at the upper posterior aspect of left frontal lobe, and at the posterior aspects of bilateral parietal lobes. Evidence of focal hyperdense acute hemorrhage in the area of the right superior cerebellar peduncle at the right posterior aspect of upper bindu or lower midbrain. Redemonstration of small focus of subarachnoid hemorrhage in the depth of the interpeduncular cistern No new focus of intra-axial or extra-axial hemorrhage. Cerebral ventricles are of normal size without midline shift. No evidence of intraventricular hemorrhage. Primary Complaint: Azael Agosto is a male that presented to the Emergency Department following fall from scaffolding from 12 ft. Unresponsive for 12 minutes at scene. Gcs then 13. Obvious facial trauma and left wrist deformity. HDS. Pain: Pain Assessment Pain Assessment: None - Denies Pain Vision/ Hearing Vision Vision: Within Functional Limits Hearing Hearing: Within functional limits Assessment: Pt presents with moderate cognitive deficits characterized by difficulties with immediate and delayed recall, word associations, inductive reasoning, word deductions, thought flexibility, and generative naming. Pt. Presents with no dysarthria, no O/M deficits at this time (note swelling/decreased range of jaw due to left side facial trauma). ST to follow up and provide treatment to address noted deficits. Education provided. ST recommends continued therapy at this time. Recommendations: Recommendations Requires FARM IMPLEMENT ENGINE MECHANIC Intervention: Yes Patient Education: yes Patient Education Response: Verbalizes understanding Frequency: 3-5x/week D/C Recommendations: Ongoing speech therapy is recommended during this hospitalization;Ongoing speech therapy is recommended at next level of care Plan: Speech Therapy Prognosis Prognosis: Good Individuals consulted Consulted and agree with results and recommendations: Patient;RN;Family member Goals: Short Term Goals Goal 1: Pt will recall 3-5 units with and without distraction with 90% accuracy. Goal 2: Pt will implement compensatory strategies for memory. Goal 3: Pt will complete verbal and deductive reasoning tasks with 90% accuracy. Goal 4: Pt will complete thought flexibility tasks with 90% accuracy. Goal 5: Pt will name 8-10 items for a given category with 90% accuracy. 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 for [employer] Vision Vision: Within Functional Limits Hearing Hearing: Within functional limits Objective: Oral Motor Labial: No impairment Lingual: No impairment Mandible: Restricted Motor Speech Intelligibility: No impairment Expression Primary Mode of Expression: Verbal Cognition: Orientation Overall Orientation Status: Within Normal Limits Memory Memory: Exceptions to [facility] Short-term Memory: Moderate (0/3 increased to 2/3, 0/3) Immediate Memory: Moderate (2/3, 1/5, 3/5, 3/3) Problem Solving Problem Solving: Exceptions to WFL Verbal Reasoning Skills: Moderate (word associations: 1/3, word deductions: 1/4, Inductive reasoning 2/4) Abstract Reasoning Abstract Reasoning: Exceptions to WFL Convergent Thinking: Moderate (1/2) Divergent Thinking: Mild (+6 concrete) Safety/Judgment Safety/Judgment: Exceptions to WFL Insight: [facility] Flexibility of Thought: Mild (2/3) Generative naming: +6 Prognosis: Speech Therapy Prognosis Prognosis: Good Individuals consulted Consulted and agree with results and recommendations: Patient;RN;Family member Education: Patient Education: yes Patient Education Response: Verbalizes understanding Therapy Time: Individual Concurrent Group Co-treatment Time In 1030 Time Out 1040 Minutes 10 FARM IMPLEMENT ENGINE MECHANIC ALL NOTES Facility/Department: [facility] CAR 1- SICU CLINICAL BEDSIDE SWALLOW EVALUATION NAME: Azael Agosto : 1965 ADMISSION DATE: 10/01/2022 ADMITTING DIAGNOSIS: has SAH (subarachnoid hemorrhage) (HCC); Subdural hematoma (HCC); Traumatic intracranial subarachnoid hemorrhage (HCC); and Closed fracture of left distal radius on their problem list. Recent Chest Xray/CT of Chest: Date of Eval: 10/02/2022 Evaluating Therapist: SUDHEER Haq Current Diet level: Primary Complaint Azael Agosto is a male that presented to the Emergency Department following fall from scaffolding from 12 ft. Unresponsive for 12 minutes at scene. Gcs then 13. Obvious facial trauma and left wrist deformity. HDS. Pain: Pain Assessment Pain Assessment: None - Denies Pain Reason for Referral Azael Agosto was referred for a bedside swallow evaluation to assess the efficiency of his swallow function, identify signs and symptoms of aspiration and make recommendations regarding safe dietary consistencies, effective compensatory strategies, and safe eating environment. Impression Patient presents with probable safe swallow for Dysphagia Pureed (Dysphagia I) diet with thin liquids as evidenced by no overt s/s of aspiration noted with consistencies tested. Pt with swelling due to facial trauma on left side, pt reported pain during mastication of soft solid. Recommend small sips and bites, only feed when alert and awake and upright at 90 degrees for all PO intake. Recommend close monitoring for overt/clinical s/s of aspiration and D/C PO intake and complete Modified Barium Swallow Study should they occur. Results and recommendations reported to RN. Dysphagia Diagnosis: Moderate oral stage dysphagia Dysphagia Outcome Severity Scale: Level 4: Mild moderate dysphagia- Intermittent supervision/cueing. One - two diet consistencies restricted Treatment Plan Requires FARM IMPLEMENT ENGINE MECHANIC Intervention: Yes Frequency: 2-3x/week D/C Recommendations: Ongoing speech therapy is recommended during this hospitalization Recommended Diet and Intervention Diet Solids Recommendation: Pureed Liquid Consistency Recommendation: Thin Recommended Form of Meds: PO Therapeutic Interventions: Diet tolerance monitoring;Patient/Family education Compensatory Swallowing Strategies Compensatory Swallowing Strategies : Alternate solids and liquids;Small bites/sips;Eat/Feed slowly;Upright as possible for all oral intake Treatment/Goals Dysphagia Goals: The patient will tolerate recommended diet without observed clinical signs of aspiration;The patient will tolerate repeat bedside swallowing evaluation when able. General Chart Reviewed: Yes Behavior/Cognition: Alert;Cooperative Communication Observation: Functional Consistencies Administered: All Vision/Hearing WFL Oral Motor Deficits Labial: No impairment Lingual: No impairment Mandible: Restricted Consistencies Administered: All Oral Phase Dysfunction Oral Phase Oral Phase: Exceptions Prolonged/painful mastication of soft solid Indicators of Pharyngeal Phase Dysfunction Pharyngeal Phase Pharyngeal Phase: WFL Pharyngeal Phase Pharyngeal Phase: WFL No overt s/s of aspiration with puree, soft solid, nectar, thin liquid via straw Prognosis Prognosis: Good Consulted and agree with results and recommendations: Patient;RN;Family member Education Patient Education: yes Patient Education Response: Verbalizes understanding Therapy Time [id number] SUDHEER Haq 10/02/2022 11:[address] Morrow rounded on patient c collar taken off per dr. Morrow c-spine considered clear. Della Gerard RN Images from the original note were not included. Occupational Therapy [facility] Occupational Therapy Not Seen Note DATE: 10/02/2022 NAME: Azael Agosto : 1965 Patient not seen this date for Occupational Therapy due to: Strict Bedrest: BR-Elevate HOB, holding OT eval until removed. Next Scheduled Treatment: Attempt in pm or 10/03. Images from the original note were not included. Trauma Tertiary Survey Admit Date: 10/01/2022 Hospital day 1 Fall distance 12 feet No past medical history on file. Scheduled Meds: ceFAZolin 2,000 mg IntraVENous Cleaning Supervisor to OR enoxaparin 30 mg SubCUTAneous BID sodium chloride flush 5-40 mL IntraVENous 2 times per day polyethylene glycol 17 g Oral Daily famotidine (PEPCID) injection 20 mg IntraVENous BID levETIRAcetam 500 mg IntraVENous Q12H ceFAZolin 2,000 mg IntraVENous Q8H Continuous Infusions: sodium chloride 15 mL/hr at 10/02/22 1748 PRN Meds:sodium chloride flush, sodium chloride, ondansetron OR ondansetron, fentanNYL OR fentanNYL Subjective: Patient none. Objective: Patient Vitals for the past 8 hrs: BP Temp Temp src Pulse Resp SpO2 10/03/22 0810 129/69 98.6 F (37 C) Oral 87 12 95 % 10/03/22 0408 -- -- -- -- 14 -- 10/03/22 0325 132/87 98.6 F (37 C) Oral 97 15 97 % I/O last 3 completed shifts: In: 450 [P.O.:250; I.V.:200] Out: 3300 [Urine:3300] No intake/output data recorded. Radiology: XR WRIST LEFT (MIN 3 VIEWS) Result Date: 10/02/2022 EXAMINATION: 3 XRAY VIEWS OF THE LEFT WRIST 10/02/2022 9:03 pm COMPARISON: Left wrist radiograph series performed earlier today. HISTORY: ORDERING SYSTEM PROVIDED HISTORY: Trauma/Fracture. Reason for Exam: fracture FINDINGS: *Unchanged comminuted, Y configured articular 2 cortex width radial displaced mildly impacted distal radial metaphysis fracture. *Possible acute, nondisplaced distal ulnar fracture versus overlying artifact. *Diffuse left wrist soft tissue edema. *Overlying splint material obscures detail greatly. 1. Unchanged comminuted, Y configured articular 2 cortex width radial displaced mildly impacted distal radial metaphysis fracture. 2. Possible acute, nondisplaced distal ulnar fracture versus overlying artifact. 3. Diffuse left wrist soft tissue edema. 4. Overlying splint material obscures detail greatly. PHYSICAL EXAM: GCS: 4 - Opens eyes on own 6 - Follows simple motor commands 5 - Alert and oriented Pupil size: Left 4 mm Right 4 mm Pupil reaction: Yes Wiggles fingers: Left Yes Right Yes Hand grasp: Left normal Right normal Wiggles toes: Left Yes Right Yes Plantar flexion: Left normal Right normal Spine: Spine Tenderness ROM Cervical 0 /10 Normal Thoracic 0 /10 Normal Lumbar 0 /10 Normal Musculoskeletal Joint Tenderness Swelling ROM Right shoulder absent absent normal Left shoulder absent absent normal Right elbow absent absent normal Left elbow absent absent normal Right wrist absent absent abnormal - in splint Left wrist absent absent normal Right hand grasp absent absent normal Left hand grasp absent absent normal Right hip absent absent normal Left hip absent absent normal Right knee absent absent normal Left knee absent absent normal Right ankle absent absent normal Left ankle absent absent normal Right foot absent absent normal Left foot absent absent normal CONSULTS: neurosurgery, orthopedic surgeyr PROCEDURES: n/a INJURIES: Patient Active Problem List Diagnosis SAH (subarachnoid hemorrhage) (HCC) Subdural hematoma (HCC) Traumatic intracranial subarachnoid hemorrhage (HCC) Closed fracture of left distal radius Closed Galeazzi's fracture of left radius Assessment/Plan: No further imaging at this time. Images from the original note were not included. ICU PROGRESS NOTE PATIENT NAME: Azael Agosto DATE: 10/02/2022 PRIMARY CARE PHYSICIAN: No primary care provider on file. HD: # 1 ASSESSMENT Patient Active Problem List Diagnosis SAH (subarachnoid hemorrhage) (HCC) Subdural hematoma (HCC) Subarachnoid hematoma (HCC) Closed fracture of left distal radius MEDICAL DECISION MAKING AND PLAN Neuro: Pain control Fentannyl 50mcg or 25mcg q 1 hour SAH/SDH Keppra Neurosurgery watching Waiting to clear cspine when more awake BP <160 CV HR: 61 MAP: 87 Hgb 13.3 Hemodynamically stable Pulm Room air Saturating 97% GI/Nutrition NPO Gi PPX n/a Renal/lytes Normal saline 125ml/kg BUN/Cr - 19/0.8 Na 138, K 4, Cl 105, Co2 23, Mg 1.9, Phos 2.9, iCal 1.00 I/O - 200/700 Total since admission - 500 Urine 700 Heme DVT prophylaxis-held for SAH/SDH Hgb 13.3 7. Endocrine 1. Glucose 108, controlled 8. MSK 1. Multiple facial fx 1. Ancef 2. Sinus precautions 2. Left distal radius fx 1. 9. Skin 1. Laceration repair left grace 10. Micro 1. Temp 98.7 2. Wbc 7.4 3. Ancef for facial fractures 11. Family/dispo 1. Family at bedside 12. Lines Peripheral lines External cath SUBJECTIVE Azael Agosto fall from scaffolding. Per nurses overnight patient attempted to get out of bed. Virtual sitter placed. OBJECTIVE VITALS: Temp: Temp: 98.7 F (37.1 C)Temp Av.8 F (37.1 C) Min: 98.2 F (36.8 C) Max: 99.5 F (37.5 C) BP Systolic (24hrs), Av , Min:102 , Max:164 Diastolic (24hrs), Av, Min:65, Max:129 Pulse Pulse Av Min: 61 Max: 112 Resp Resp Av.8 Min: 8 Max: 30 Pulse ox SpO2 Av.9 % Min: 80 % Max: 98 % Physical Exam Constitutional: awake HENT: Head: normcephalix, bruising, ptosis left eye Eyes: Pupils: PEERL Cardiovascular: Rate and Rhythm: normal Pulses: normal Pulmonary: Effort: normal Breath sounds: clear, wheezing, rales rhonchi Abdominal: General: soft Palpations: nontender Skin: General: lacer repair left grace LAB: CBC: Recent Labs 10/01/22 1015 10/02/22 0311 WBC 11.4* 7.4 HGB 14.3 13.3 HCT 41.2 40.2* MCV 92.4 94.8 PLT 215 139 BMP: Recent Labs 10/01/22 1015 10/02/22 0311 NA 141 138 K 4.0 4.0 CL 107 105 CO2 20 23 BUN 27* 19 CREATININE 1.2 0.8 GLUCOSE 141* 108* RADIOLOGY: XR ELBOW LEFT (2 VIEWS) Result Date: 10/01/2022 EXAMINATION: XRAY VIEWS OF THE LEFT WRIST; TWO XRAY VIEWS OF THE LEFT ELBOW; TWO XRAY VIEWS OF THE LEFT FOREARM; XRAY VIEWS OF THE RIGHT FEMUR; XRAY VIEWS OF THE LEFT TIBIA AND FIBULA 10/01/2022 10:32 am COMPARISON: None. HISTORY: ORDERING SYSTEM PROVIDED HISTORY: trauma TECHNOLOGIST PROVIDED HISTORY: trauma FINDINGS: Left elbow: Joint spaces are maintained. No fracture or dislocation identified. No joint effusion. No soft tissue abnormality identified. Left forearm: Comminuted displaced intra-articular fracture involving the distal radius. There is 8.4 mm dorsal displacement of the distal radial fracture. Positive ulnar variance. Osteophyte formation subjacent to the distal radioulnar joint. Left wrist: No additional fractures are seen. Narrowing of the 1st CMC joint with associated subjacent osteophytes. Right femur: No fracture dislocation identified. Over coverage of the right femoral head by the acetabulum. Osteophyte formation involving the right acetabulum. No bony destructive process is seen. No soft tissue abnormality identified. Left tib fib: No fracture dislocation identified. No bony destructive process. No soft tissue abnormality identified. Acute comminuted displaced intra-articular fracture of the distal left radius (Galeazzi). No acute osseous abnormality identified involving the left elbow. No acute osseous abnormality identified involving the right femur or left tib fib. XR RADIUS ULNA LEFT (2 VIEWS) Result Date: 10/01/2022 EXAMINATION: XRAY VIEWS OF THE LEFT WRIST; TWO XRAY VIEWS OF THE LEFT ELBOW; TWO XRAY VIEWS OF THE LEFT FOREARM; XRAY VIEWS OF THE RIGHT FEMUR; XRAY VIEWS OF THE LEFT TIBIA AND FIBULA 10/01/2022 10:32 am COMPARISON: None. HISTORY: ORDERING SYSTEM PROVIDED HISTORY: trauma TECHNOLOGIST PROVIDED HISTORY: trauma FINDINGS: Left elbow: Joint spaces are maintained. No fracture or dislocation identified. No joint effusion. No soft tissue abnormality identified. Left forearm: Comminuted displaced intra-articular fracture involving the distal radius. There is 8.4 mm dorsal displacement of the distal radial fracture. Positive ulnar variance. Osteophyte formation subjacent to the distal radioulnar joint. Left wrist: No additional fractures are seen. Narrowing of the 1st CMC joint with associated subjacent osteophytes. Right femur: No fracture dislocation identified. Over coverage of the right femoral head by the acetabulum. Osteophyte formation involving the right acetabulum. No bony destructive process is seen. No soft tissue abnormality identified. Left tib fib: No fracture dislocation identified. No bony destructive process. No soft tissue abnormality identified. Acute comminuted displaced intra-articular fracture of the distal left radius (Galeazzi). No acute osseous abnormality identified involving the left elbow. No acute osseous abnormality identified involving the right femur or left tib fib. XR WRIST LEFT (MIN 3 VIEWS) Result Date: 10/01/2022 EXAMINATION: XRAY VIEWS OF THE LEFT WRIST 10/01/2022 2:05 pm COMPARISON: October 01, 2022 at 1326 hours HISTORY: ORDERING SYSTEM PROVIDED HISTORY: Post-Splint TECHNOLOGIST PROVIDED HISTORY: Post-Splint Reason for Exam: fx,, post splint port at 2pm FINDINGS: Post reduction radiographs of the left wrist. Stable appearing fracture of the distal radius which is in near anatomic alignment on the AP view and in anatomic alignment on the lateral radiograph. No additional fractures are seen. Post reduction radiographs of the distal radius. Anatomic alignment of the distal radial fracture on the lateral radiograph. XR WRIST LEFT (MIN 3 VIEWS) Result Date: 10/01/2022 EXAMINATION: 2 XRAY VIEWS OF THE LEFT WRIST 10/01/2022 2:04 pm COMPARISON: 10/01/2022 HISTORY: ORDERING SYSTEM PROVIDED HISTORY: Post-Reduction TECHNOLOGIST PROVIDED HISTORY: Post-Reduction Reason for Exam: fx, post reduction port at 130pm FINDINGS: There is improved alignment of the acute comminuted intra-articular fracture involving the distal radial metaphysis. There is no dislocation. The bones are normally mineralized. There are no bony destructive lesions. Moderate polyarticular osteoarthritis is noted. Soft tissue swelling surrounds the wrist. 1. Improved alignment. XR WRIST LEFT (MIN 3 VIEWS) Result Date: 10/01/2022 EXAMINATION: XRAY VIEWS OF THE LEFT WRIST; TWO XRAY VIEWS OF THE LEFT ELBOW; TWO XRAY VIEWS OF THE LEFT FOREARM; XRAY VIEWS OF THE RIGHT FEMUR; XRAY VIEWS OF THE LEFT TIBIA AND FIBULA 10/01/2022 10:32 am COMPARISON: None. HISTORY: ORDERING SYSTEM PROVIDED HISTORY: trauma TECHNOLOGIST PROVIDED HISTORY: trauma FINDINGS: Left elbow: Joint spaces are maintained. No fracture or dislocation identified. No joint effusion. No soft tissue abnormality identified. Left forearm: Comminuted displaced intra-articular fracture involving the distal radius. There is 8.4 mm dorsal displacement of the distal radial fracture. Positive ulnar variance. Osteophyte formation subjacent to the distal radioulnar joint. Left wrist: No additional fractures are seen. Narrowing of the 1st CMC joint with associated subjacent osteophytes. Right femur: No fracture dislocation identified. Over coverage of the right femoral head by the acetabulum. Osteophyte formation involving the right acetabulum. No bony destructive process is seen. No soft tissue abnormality identified. Left tib fib: No fracture dislocation identified. No bony destructive process. No soft tissue abnormality identified. Acute comminuted displaced intra-articular fracture of the distal left radius (Galeazzi). No acute osseous abnormality identified involving the left elbow. No acute osseous abnormality identified involving the right femur or left tib fib. XR WRIST RIGHT (MIN 3 VIEWS) Result Date: 10/01/2022 EXAMINATION: 3 XRAY VIEWS OF THE RIGHT WRIST 10/01/2022 1:25 pm COMPARISON: None. HISTORY: ORDERING SYSTEM PROVIDED HISTORY: trauma TECHNOLOGIST PROVIDED HISTORY: trauma FINDINGS: Soft tissues are within normal limits. There is no acute fracture or dislocation. Mild joint space narrowing at the triscaphe and 1st carpometacarpal joints. No bony erosion. No evidence of acute osseous abnormality in the right wrist. XR FEMUR RIGHT (MIN 2 VIEWS) Result Date: 10/01/2022 EXAMINATION: XRAY VIEWS OF THE LEFT WRIST; TWO XRAY VIEWS OF THE LEFT ELBOW; TWO XRAY VIEWS OF THE LEFT FOREARM; XRAY VIEWS OF THE RIGHT FEMUR; XRAY VIEWS OF THE LEFT TIBIA AND FIBULA 10/01/2022 10:32 am COMPARISON: None. HISTORY: ORDERING SYSTEM PROVIDED HISTORY: trauma TECHNOLOGIST PROVIDED HISTORY: trauma FINDINGS: Left elbow: Joint spaces are maintained. No fracture or dislocation identified. No joint effusion. No soft tissue abnormality identified. Left forearm: Comminuted displaced intra-articular fracture involving the distal radius. There is 8.4 mm dorsal displacement of the distal radial fracture. Positive ulnar variance. Osteophyte formation subjacent to the distal radioulnar joint. Left wrist: No additional fractures are seen. Narrowing of the 1st CMC joint with associated subjacent osteophytes. Right femur: No fracture dislocation identified. Over coverage of the right femoral head by the acetabulum. Osteophyte formation involving the right acetabulum. No bony destructive process is seen. No soft tissue abnormality identified. Left tib fib: No fracture dislocation identified. No bony destructive process. No soft tissue abnormality identified. Acute comminuted displaced intra-articular fracture of the distal left radius (Galeazzi). No acute osseous abnormality identified involving the left elbow. No acute osseous abnormality identified involving the right femur or left tib fib. XR TIBIA FIBULA LEFT (2 VIEWS) Result Date: 10/01/2022 EXAMINATION: XRAY VIEWS OF THE LEFT WRIST; TWO XRAY VIEWS OF THE LEFT ELBOW; TWO XRAY VIEWS OF THE LEFT FOREARM; XRAY VIEWS OF THE RIGHT FEMUR; XRAY VIEWS OF THE LEFT TIBIA AND FIBULA 10/01/2022 10:32 am COMPARISON: None. HISTORY: ORDERING SYSTEM PROVIDED HISTORY: trauma TECHNOLOGIST PROVIDED HISTORY: trauma FINDINGS: Left elbow: Joint spaces are maintained. No fracture or dislocation identified. No joint effusion. No soft tissue abnormality identified. Left forearm: Comminuted displaced intra-articular fracture involving the distal radius. There is 8.4 mm dorsal displacement of the distal radial fracture. Positive ulnar variance. Osteophyte formation subjacent to the distal radioulnar joint. Left wrist: No additional fractures are seen. Narrowing of the 1st CMC joint with associated subjacent osteophytes. Right femur: No fracture dislocation identified. Over coverage of the right femoral head by the acetabulum. Osteophyte formation involving the right acetabulum. No bony destructive process is seen. No soft tissue abnormality identified. Left tib fib: No fracture dislocation identified. No bony destructive process. No soft tissue abnormality identified. Acute comminuted displaced intra-articular fracture of the distal left radius (Galeazzi). No acute osseous abnormality identified involving the left elbow. No acute osseous abnormality identified involving the right femur or left tib fib. CT HEAD WO CONTRAST Result Date: 10/02/2022 EXAMINATION: CT OF THE HEAD WITHOUT CONTRAST 10/01/2022 10:55 pm TECHNIQUE: CT of the head was performed without the administration of intravenous contrast. Automated exposure control, iterative reconstruction, and/or weight based adjustment of the mA/kV was utilized to reduce the radiation dose to as low as reasonably achievable. COMPARISON: CT scan of brain without contrast on 10/01/2022 at 4:32 p.m. HISTORY: ORDERING SYSTEM PROVIDED HISTORY: sah TECHNOLOGIST PROVIDED HISTORY: sah FINDINGS: BRAIN/VENTRICLES: Redemonstration of small focus of subarachnoid hemorrhage, with or without focal cortical hemorrhage at the medial aspect of upper posterior portion of right frontal lobe, and, as compared to previous CT scan the amount of hyperdense blood in this area appears to be decreased to some extent. Redemonstration of small focus of cortical or subcortical hemorrhage at the upper posterosuperior portion of the left frontal lobe similar to previous study. Redemonstration of small punctate foci of cortical or subarachnoid hemorrhage in 3-4 tiny foci at the posterosuperior aspect of the right parietal lobe. Redemonstration of minimal cortical or subarachnoid hemorrhage at the posterior aspect of left parietal lobe similar to previous CT scan findings. Redemonstration of focus of acute hyperdense hemorrhage at the right posterolateral aspect of upper bindu of brainstem in the area of the right superior cerebellar peduncle. This focus of hyperdense hemorrhage measures maximal 6.5 mm, similar to findings on previous CT scan. Redemonstration of small focus of subarachnoid hemorrhage in the depth of the interventricular cistern. There is no new focus of hemorrhage in brain. No evidence of subdural or epidural hematoma. No evidence of intraventricular hemorrhage. Cerebral ventricles are of normal size without midline shift. ORBITS: Redemonstration of findings of fractures involving the lateral wall of left orbit and the left orbital floor with soft tissue emphysema within the left orbit. Within the right orbit there is no soft tissue emphysema or hemorrhage. SINUSES: Redemonstration of comminuted fractures of left lateral wall of the left maxillary sinus and mild depressed fracture of the lateral of the right maxillary sinus. Redemonstration of comminuted fractures involving the anterior wall of the left maxillary sinus. Also there are findings of pre-existing comminuted fractures of the nasal bones. Evidence of dense opacities in bilateral maxillary sinus, suggestive of significant hemorrhage in the sinuses. SOFT TISSUES/SKULL: No evidence of fracture in the skull. Redemonstration of multifocal subarachnoid hemorrhage/cortical hemorrhage at the upper medial aspect of right frontal lobe, at the upper posterior aspect of left frontal lobe, and at the posterior aspects of bilateral parietal lobes. Evidence of focal hyperdense acute hemorrhage in the area of the right superior cerebellar peduncle at the right posterior aspect of upper bindu or lower midbrain. Redemonstration of small focus of subarachnoid hemorrhage in the depth of the interpeduncular cistern No new focus of intra-axial or extra-axial hemorrhage. Cerebral ventricles are of normal size without midline shift. No evidence of intraventricular hemorrhage. CT HEAD WO CONTRAST Result Date: 10/01/2022 EXAMINATION: CT OF THE HEAD WITHOUT CONTRAST 10/01/2022 4:18 pm TECHNIQUE: CT of the head was performed without the administration of intravenous contrast. Automated exposure control, iterative reconstruction, and/or weight based adjustment of the mA/kV was utilized to reduce the radiation dose to as low as reasonably achievable. COMPARISON: October 01 at 1018 hours HISTORY: ORDERING SYSTEM PROVIDED HISTORY: f/u sah TECHNOLOGIST PROVIDED HISTORY: f/u sah FINDINGS: BRAIN/VENTRICLES: Areas of subarachnoid hemorrhage involving the bilateral parietal and left frontal lobe. Punctate foci of parenchymal hemorrhage are seen within the left frontal lobe. New areas of subdural hemorrhage are seen adjacent to the falx. Minimal hemorrhage in the left sylvian fissure. Stable appearing area of hemorrhage adjacent to the posterior right bindu (series 2, image 25). Hemorrhage is seen in the intra peduncular fossa. No mass effect or subfalcine herniation. The ventricles are normal in position and size. Minimal hemorrhage in the region of the foramen of Monro versus small colored cyst (series 2, image 39). No pneumocephalus identified. Stable appearing numerous facial bone fractures no opacification of the paranasal sinuses. Intra and extraconal left orbital air is noted. Globes are unremarkable in appearance. SOFT TISSUES/SKULL: No acute abnormality of the visualized skull or soft tissues. Worsening areas of parenchymal, subdural, and subarachnoid hemorrhage when compared to the prior exam. No appreciable mass effect. No midline shift. CT HEAD WO CONTRAST Result Date: 10/01/2022 EXAMINATION: CT OF THE HEAD WITHOUT CONTRAST 10/01/2022 10:14 am TECHNIQUE: CT of the head was performed without the administration of intravenous contrast. Automated exposure control, iterative reconstruction, and/or weight based adjustment of the mA/kV was utilized to reduce the radiation dose to as low as reasonably achievable. COMPARISON: None. HISTORY: ORDERING SYSTEM PROVIDED HISTORY: Trauma TECHNOLOGIST PROVIDED HISTORY: Trauma FINDINGS: BRAIN/VENTRICLES: There is a tiny focus of subarachnoid hemorrhage in the right ambient cistern. There is also a tiny amount of subarachnoid hemorrhage in the left frontal and parietal sulci. No mass effect or midline shift.. The brush-white differentiation is maintained without evidence of an acute infarct. There is no evidence of hydrocephalus. SINUSES: There is hemorrhage in the bilateral maxillary sinuses. There is mucosal thickening and hemorrhage in the frontal, sphenoid, and ethmoid sinuses as well. There are fractures of bilateral nasal bones. Multiple fractures is in the sadlivar of the maxillary sinuses, more so on the left. There is a blowout fracture at the left orbit with minimal herniation of the left inferior rectus muscle. There is intraconal and extraconal gas at the left orbit. There is a fracture at the lateral wall of the left orbit. Possible nondisplaced fracture of the left zygoma. SOFT TISSUES/SKULL: No acute abnormality of the visualized skull or soft tissues. 1. There are a few tiny foci of subarachnoid hemorrhage, including in the right ambient cistern as well as at the left frontal and parietal sulci. No mass effect or midline shift. 2. Multiple facial fractures with hemorrhage in the paranasal sinuses. Facial fractures include bilateral maxillary sinuses, nasal bones, and a left orbital blowout fracture. There is intra and extraconal gas at the left orbit. Critical results were called by Dr. Uzma Beckett to Dr. Schmidt on 10/01/2022 at 10:44. CT FACIAL BONES WO CONTRAST Result Date: 10/01/2022 EXAMINATION: CT OF THE FACE WITHOUT CONTRAST 10/01/2022 10:57 am TECHNIQUE: CT of the face was performed without the administration of intravenous contrast. Multiplanar reformatted images are provided for review. Automated exposure control, iterative reconstruction, and/or weight based adjustment of the mA/kV was utilized to reduce the radiation dose to as low as reasonably achievable. COMPARISON: None. HISTORY: ORDERING SYSTEM PROVIDED HISTORY: facial fractures TECHNOLOGIST PROVIDED HISTORY: facial fractures Decision Support Exception - unselect if not a suspected or confirmed emergency medical condition->Emergency Medical Condition (MA) FINDINGS: FACIAL BONES: There are numerous facial bone fractures. There are nondisplaced fractures of the right pterygoid plates. No visible fracture involving the left pterygoid plates. Mandible and temporomandibular joints are intact. There is a nondisplaced fracture at the anterior nasal maxillary spine. Hard palate is intact. There is hemorrhage in the right maxillary sinus with suspected nondisplaced fractures of the medial and lateral saldivar. There are multiple mildly displaced fractures involving all saldivar of the left maxillary sinus. There are mildly displaced fractures of bilateral nasal bones. Right orbital bones are intact. There a comminuted and displaced fracture at the floor of the left orbit. There is herniation of extraconal fat and minimal displacement of the inferior rectus muscle into the fracture defect. There are multiple foci of gas in the intraconal and extraconal fat. There are nondisplaced fractures of the left lamina papyracea. There is a minimally displaced fracture at the lateral wall of the left orbit. Roof of the orbit is intact. There is a nondisplaced fracture of the left zygomatic arch. Right zygomatic arch is intact. ORBITAL CONTENTS: The globes appear intact. There is mild left-sided proptosis. No evidence of retrobulbar hematoma. SINUSES: There is scattered hemorrhage and mucosal thickening in the paranasal sinuses. Mastoid air cells are well aerated. SOFT TISSUES: There is scattered soft tissue edema and soft tissue gas in the soft tissues of the face, more so on the left. 1. Multiple acute maxillofacial fractures, as below: -nondisplaced fractures of the right pterygoid plates. -nondisplaced fracture at the anterior nasal maxillary spine and mildly displaced fractures of bilateral nasal bones. -nondisplaced fractures at the medial and lateral saldivar of the right maxillary sinus. -multiple mildly displaced fractures involving all saldivar of the left maxillary sinus. -comminuted left orbital blowout fracture with herniation of extraconal fat and minimal displacement of the inferior rectus muscle. Multiple foci of gas in the intraconal and extraconal fat. No visible retrobulbar hematoma. -nondisplaced fractures of the left lamina papyracea. -minimally displaced fracture at the lateral wall of the left orbit. -nondisplaced fracture of the left zygomatic arch 2. Mild left-sided proptosis. 3. Scattered hemorrhage and mucosal thickening in the paranasal sinuses. 4. Scattered soft tissue edema and gas. CT CERVICAL SPINE WO CONTRAST Result Date: 10/01/2022 EXAMINATION: CT OF THE CERVICAL SPINE WITHOUT CONTRAST 10/01/2022 10:14 am TECHNIQUE: CT of the cervical spine was performed without the administration of intravenous contrast. Multiplanar reformatted images are provided for review. Automated exposure control, iterative reconstruction, and/or weight based adjustment of the mA/kV was utilized to reduce the radiation dose to as low as reasonably achievable. COMPARISON: None. HISTORY: ORDERING SYSTEM PROVIDED HISTORY: Trauma TECHNOLOGIST PROVIDED HISTORY: Trauma FINDINGS: BONES/ALIGNMENT: There is no acute fracture or traumatic malalignment. DEGENERATIVE CHANGES: Multilevel degenerative changes SOFT TISSUES: There is no prevertebral soft tissue swelling. No acute abnormality of the cervical spine. CTA NECK W CONTRAST Result Date: 10/01/2022 EXAMINATION: CTA OF THE NECK 10/01/2022 4:18 pm TECHNIQUE: CTA of the neck was performed with the administration of intravenous contrast. Multiplanar reformatted images are provided for review. MIP images are provided for review. Stenosis of the internal carotid arteries measured using NASCET criteria. Automated exposure control, iterative reconstruction, and/or weight based adjustment of the mA/kV was utilized to reduce the radiation dose to as low as reasonably achievable. COMPARISON: None. HISTORY: ORDERING SYSTEM PROVIDED HISTORY: multiple deep facial fxs s/p fall TECHNOLOGIST PROVIDED HISTORY: multiple deep facial fxs s/p fall Decision Support Exception - unselect if not a suspected or confirmed emergency medical condition->Emergency Medical Condition (MA) FINDINGS: AORTIC ARCH/ARCH VESSELS: No dissection or arterial injury. No significant stenosis of the brachiocephalic or subclavian arteries. CAROTID ARTERIES: No dissection, arterial injury, or hemodynamically significant stenosis by NASCET criteria. VERTEBRAL ARTERIES: No dissection, arterial injury, or significant stenosis. SOFT TISSUES: No active contrast extravasation. BONES: Please see separate head, face and cervical spine CT reports. No acute trauma of the major arterial vessels of the neck. CT CHEST ABDOMEN PELVIS W CONTRAST Additional Contrast? None Result Date: 10/01/2022 EXAMINATION: CT OF THE LUMBAR SPINE WITHOUT CONTRAST; CT OF THE THORACIC SPINE WITHOUT CONTRAST; CT OF THE CHEST, ABDOMEN, AND PELVIS WITH CONTRAST 10/01/2022 10:14 am TECHNIQUE: CT of the lumbar spine was performed without the administration of intravenous contrast. Multiplanar reformatted images are provided for review. Adjustment of mA and/or kV according to patient size was utilized. Automated exposure control, iterative reconstruction, and/or weight based adjustment of the mA/kV was utilized to reduce the radiation dose to as low as reasonably achievable.; CT of the thoracic spine was performed without the administration of intravenous contrast. Multiplanar reformatted images are provided for review. Automated exposure control, iterative reconstruction, and/or weight based adjustment of the mA/kV was utilized to reduce the radiation dose to as low as reasonably achievable.; CT of the chest, abdomen and pelvis was performed with the administration of intravenous contrast. Multiplanar reformatted images are provided for review. Automated exposure control, iterative reconstruction, and/or weight based adjustment of the mA/kV was utilized to reduce the radiation dose to as low as reasonably achievable. COMPARISON: None. HISTORY: ORDERING SYSTEM PROVIDED HISTORY: TRAUMA TECHNOLOGIST PROVIDED HISTORY: Trauma trauma; ORDERING SYSTEM PROVIDED HISTORY: trauma TECHNOLOGIST PROVIDED HISTORY: trauma; ORDERING SYSTEM PROVIDED HISTORY: Trauma TECHNOLOGIST PROVIDED HISTORY: Trauma FINDINGS: CT SCAN CHEST: Mediastinum: There are a few less than 1 cm mediastinal lymph nodes but no lymphadenopathy is seen. The thoracic aorta is not aneurysmal. No dissection is seen. There are no defects involving the major pulmonary arteries. Lungs/pleura: The lung parenchyma demonstrates no focal infiltrates or masses. No pleural effusions or pneumothoraces are seen. Bones/soft tissues: No acute bony abnormalities are noted. CT SCAN ABDOMEN AND PELVIS: Organs: The liver, spleen, gallbladder, pancreas and adrenal glands appear unremarkable. There is symmetric enhancement of the kidneys. No hydronephrosis is seen. No ureteral or bladder calculi are seen. GI/Bowel: Evaluation of the bowel is limited as no enteric contrast was given. No dilated loops of bowel are seen. There is scattered diverticular disease involving the colon but no findings to suggest active inflammation. I do not see a dilated appendix. Pelvis: No pelvic masses or fluid collections are seen. Peritoneum/Retroperitoneum: The abdominal aorta is not aneurysmal. There are shotty mesenteric and retroperitoneal lymph nodes but no lymphadenopathy is seen. Bones/Soft Tissues: No acute bony abnormalities are noted. CT SCAN THORACIC AND LUMBAR SPINE: BONES/ALIGNMENT: There is normal alignment of the spine. The vertebral body heights are maintained. No osseous destructive lesion is seen. There is non osseous union involving the left transverse process of L1. No acute fractures are seen. DEGENERATIVE CHANGES: There is degenerative disc disease most pronounced at L5-S1. SOFT TISSUES/RETROPERITONEUM: No paraspinal mass is seen. 1. No active pulmonary disease. 2. No acute intra-abdominal or pelvic abnormality. 3. No acute traumatic abnormality involving the thoracic or lumbar spine. CT LUMBAR SPINE TRAUMA RECONSTRUCTION Result Date: 10/01/2022 EXAMINATION: CT OF THE LUMBAR SPINE WITHOUT CONTRAST; CT OF THE THORACIC SPINE WITHOUT CONTRAST; CT OF THE CHEST, ABDOMEN, AND PELVIS WITH CONTRAST 10/01/2022 10:14 am TECHNIQUE: CT of the lumbar spine was performed without the administration of intravenous contrast. Multiplanar reformatted images are provided for review. Adjustment of mA and/or kV according to patient size was utilized. Automated exposure control, iterative reconstruction, and/or weight based adjustment of the mA/kV was utilized to reduce the radiation dose to as low as reasonably achievable.; CT of the thoracic spine was performed without the administration of intravenous contrast. Multiplanar reformatted images are provided for review. Automated exposure control, iterative reconstruction, and/or weight based adjustment of the mA/kV was utilized to reduce the radiation dose to as low as reasonably achievable.; CT of the chest, abdomen and pelvis was performed with the administration of intravenous contrast. Multiplanar reformatted images are provided for review. Automated exposure control, iterative reconstruction, and/or weight based adjustment of the mA/kV was utilized to reduce the radiation dose to as low as reasonably achievable. COMPARISON: None. HISTORY: ORDERING SYSTEM PROVIDED HISTORY: TRAUMA TECHNOLOGIST PROVIDED HISTORY: Trauma trauma; ORDERING SYSTEM PROVIDED HISTORY: trauma TECHNOLOGIST PROVIDED HISTORY: trauma; ORDERING SYSTEM PROVIDED HISTORY: Trauma TECHNOLOGIST PROVIDED HISTORY: Trauma FINDINGS: CT SCAN CHEST: Mediastinum: There are a few less than 1 cm mediastinal lymph nodes but no lymphadenopathy is seen. The thoracic aorta is not aneurysmal. No dissection is seen. There are no defects involving the major pulmonary arteries. Lungs/pleura: The lung parenchyma demonstrates no focal infiltrates or masses. No pleural effusions or pneumothoraces are seen. Bones/soft tissues: No acute bony abnormalities are noted. CT SCAN ABDOMEN AND PELVIS: Organs: The liver, spleen, gallbladder, pancreas and adrenal glands appear unremarkable. There is symmetric enhancement of the kidneys. No hydronephrosis is seen. No ureteral or bladder calculi are seen. GI/Bowel: Evaluation of the bowel is limited as no enteric contrast was given. No dilated loops of bowel are seen. There is scattered diverticular disease involving the colon but no findings to suggest active inflammation. I do not see a dilated appendix. Pelvis: No pelvic masses or fluid collections are seen. Peritoneum/Retroperitoneum: The abdominal aorta is not aneurysmal. There are shotty mesenteric and retroperitoneal lymph nodes but no lymphadenopathy is seen. Bones/Soft Tissues: No acute bony abnormalities are noted. CT SCAN THORACIC AND LUMBAR SPINE: BONES/ALIGNMENT: There is normal alignment of the spine. The vertebral body heights are maintained. No osseous destructive lesion is seen. There is non osseous union involving the left transverse process of L1. No acute fractures are seen. DEGENERATIVE CHANGES: There is degenerative disc disease most pronounced at L5-S1. SOFT TISSUES/RETROPERITONEUM: No paraspinal mass is seen. 1. No active pulmonary disease. 2. No acute intra-abdominal or pelvic abnormality. 3. No acute traumatic abnormality involving the thoracic or lumbar spine. CT THORACIC SPINE TRAUMA RECONSTRUCTION Result Date: 10/01/2022 EXAMINATION: CT OF THE LUMBAR SPINE WITHOUT CONTRAST; CT OF THE THORACIC SPINE WITHOUT CONTRAST; CT OF THE CHEST, ABDOMEN, AND PELVIS WITH CONTRAST 10/01/2022 10:14 am TECHNIQUE: CT of the lumbar spine was performed without the administration of intravenous contrast. Multiplanar reformatted images are provided for review. Adjustment of mA and/or kV according to patient size was utilized. Automated exposure control, iterative reconstruction, and/or weight based adjustment of the mA/kV was utilized to reduce the radiation dose to as low as reasonably achievable.; CT of the thoracic spine was performed without the administration of intravenous contrast. Multiplanar reformatted images are provided for review. Automated exposure control, iterative reconstruction, and/or weight based adjustment of the mA/kV was utilized to reduce the radiation dose to as low as reasonably achievable.; CT of the chest, abdomen and pelvis was performed with the administration of intravenous contrast. Multiplanar reformatted images are provided for review. Automated exposure control, iterative reconstruction, and/or weight based adjustment of the mA/kV was utilized to reduce the radiation dose to as low as reasonably achievable. COMPARISON: None. HISTORY: ORDERING SYSTEM PROVIDED HISTORY: TRAUMA TECHNOLOGIST PROVIDED HISTORY: Trauma trauma; ORDERING SYSTEM PROVIDED HISTORY: trauma TECHNOLOGIST PROVIDED HISTORY: trauma; ORDERING SYSTEM PROVIDED HISTORY: Trauma TECHNOLOGIST PROVIDED HISTORY: Trauma FINDINGS: CT SCAN CHEST: Mediastinum: There are a few less than 1 cm mediastinal lymph nodes but no lymphadenopathy is seen. The thoracic aorta is not aneurysmal. No dissection is seen. There are no defects involving the major pulmonary arteries. Lungs/pleura: The lung parenchyma demonstrates no focal infiltrates or masses. No pleural effusions or pneumothoraces are seen. Bones/soft tissues: No acute bony abnormalities are noted. CT SCAN ABDOMEN AND PELVIS: Organs: The liver, spleen, gallbladder, pancreas and adrenal glands appear unremarkable. There is symmetric enhancement of the kidneys. No hydronephrosis is seen. No ureteral or bladder calculi are seen. GI/Bowel: Evaluation of the bowel is limited as no enteric contrast was given. No dilated loops of bowel are seen. There is scattered diverticular disease involving the colon but no findings to suggest active inflammation. I do not see a dilated appendix. Pelvis: No pelvic masses or fluid collections are seen. Peritoneum/Retroperitoneum: The abdominal aorta is not aneurysmal. There are shotty mesenteric and retroperitoneal lymph nodes but no lymphadenopathy is seen. Bones/Soft Tissues: No acute bony abnormalities are noted. CT SCAN THORACIC AND LUMBAR SPINE: BONES/ALIGNMENT: There is normal alignment of the spine. The vertebral body heights are maintained. No osseous destructive lesion is seen. There is non osseous union involving the left transverse process of L1. No acute fractures are seen. DEGENERATIVE CHANGES: There is degenerative disc disease most pronounced at L5-S1. SOFT TISSUES/RETROPERITONEUM: No paraspinal mass is seen. 1. No active pulmonary disease. 2. No acute intra-abdominal or pelvic abnormality. 3. No acute traumatic abnormality involving the thoracic or lumbar spine. Anish Langford DO 10/02/22, 8:38 AM Associated attestation - Diego Smith MD - 10/02/2022 3:24 PM EDT I personally evaluated the patient and directed the medical decision making with Resident/ASHA after the physical/radiologic exam and laboratory values were reviewed and confirmed. Doing well. CT stable. PT/OT. Ok for stepdown. Diego Smith MD Orthopedic Progress Note Patient: Azael Agosto Date of : 1965 57 y.o. male Subjective: Patient seen and examined this morning. No complaints or concerns. Nursing states patient is AOx4 but mildly confused overnight. Pain is well controlled on current regimen. Denies fever, CARVER, CP, SOB, N/V, dysuria, new numbness/tingling. Neurosurgery not anticipating any acute neurosurgical intervention at this time. They will continue to monitor CT head. Plastic surgery not planning any acute surgery for facial fractures. Left leg laceration being managed by Trauma surgery. Vitals reviewed, afebrile Objective: Vitals: 10/02/22 0600 BP: 104/72 Pulse: 62 Resp: 11 Temp: 98.7 F (37.1 C) SpO2: 97% Gen: NAD, cooperative Cardiovascular: Regular rate Respiratory: No acute respiratory distress, breathing comfortably Orthopedic Exam LUE: Splint on LUE in good repair without pinching at proximal or distal ends. CEZAR bandage overlying is clean, dry, and intact without strike-through. Exposed digits are warm and well perfused. Exposed digits can flex/extend and sensation grossly intact. Recent Labs 10/01/22 1015 10/02/22 0311 WBC 11.4* 7.4 HGB 14.3 13.3 HCT 41.2 40.2* PLT 215 139 INR 1.0 -- NA 141 138 K 4.0 4.0 BUN 27* 19 CREATININE 1.2 0.8 GLUCOSE 141* 108* Meds: Abx: Ancef See rec for complete list Impression 57 y.o. male who fell from 12 feet being seen for: -left distal radius fracture Other injuries: -maxillofacial fractures -left leg laceration Plan - No further plans for orthopedic intervention at this time - Splint on LUE. Okay to reinforce/maintain by nursing if necessary. Please notify Ortho if saturated. - NWB to the LUE - Pain control and medical management per primary - DVT ppx: EPC. Per primary. Okay for chemical anticoagulation from orthopedic perspective. - Ice/Elevate to control pain and edema - PT/OT will evaluate today - Okay to discharge from orthopedic perspective once medically stable - F/u with Dr. Argueta on 10/03/22 - Please page Ortho geographic information systems engineer with any questions Floresita Alcantar DO Orthopedic Surgery Resident, PGY-2 [place], [place] Writing RN notified neurosurgery resident of previous and current pupil sizes/changes, pt orientation status and head CT completion per Dr. Matos's request. Neurosurgery resident aware, no new orders at this time. Continue to monitor pt neuro status SPIRITUAL CARE DEPARTMENT - [facility] [place] Emergency/Trauma Note PATIENT NAME: Azael Agosto Shift date: 10/01/2022 Shift day: Monday Shift # 1 Room # 03/24 Name: Age: 89 y.o. Gender: male Tenriism: Yazidism Place of orthodox: Trauma/Incident type: Adult Trauma Priority Admit Date & Time: 10/01/2022 9:51 AM TRAUMA NAME: Amadeo Trauma Calixto ADVANCE DIRECTIVES IN CHART? No PATIENT/EVENT DESCRIPTION: Amadeo Trauma Calixto is a 89 y.o. male who arrived via life flight as adult trauma priority. Per EMS, patient took a fall. Patient was conscious was conscious and responsive. Patient was admitted to Trauma A but later transferred to ED 2 SPIRITUAL [id number]-[id number]: No spiritual assessment was carried out because patient was having a rough time. Patient's , Chasidy , and two other family members arrived later and tents assembler took them back to patient 's room. Medical Records Receptionist provided ministry of presence and offered support. PATIENT BELONGINGS: This tents assembler did not handle patient's belongings. ANY BELONGINGS OF SIGNIFICANT VALUE NOTED: Unknown REGISTRATION STAFF NOTIFIED? Yes WHAT IS YOUR SPIRITUAL CARE PLAN FOR THIS PATIENT?: Follow up visits recommended for ongoing assessment of patient's condition and for prayers and suppot . Spiritual Care Department [facility] [phone] documented in this encounter [facility] Discharge instructions 10-01-2022 Discharge InstructionsDischarge Instr - COCAttachments Note Date & Type Note Facility 10-01-2022 Hospital Discharg e instructions Floresita Alcantar, - 10/01/2022 2:21 PM EDT Images from the original note were not included. Discharge Instructions for Trauma What to do after you leave the hospital: You sustained a head injury during your recent traumatic event. Please refrain from any activities that could put you at risk for further injury to your head as you heal over the next 3-4 weeks (such as ladders, contact sports, 4-johnson/ATV activities, etc.) You received a cognitive evaluation while hospitalized-follow all instructions given by the speech-language pathologist. For additional support and resources for you and your family contact the [facility] at [phone]. This center offers additional therapy, support groups, education and other resources at no cost. The center is located at [address] [place] [address]. You can also visit [email or web address] for more information. For resources transitioning back to the community following your trauma, visit [email or web address] General questions or concerns please call the Trauma [facility] at [phone]. If needed, the clinic fax number is [phone]. Trauma is a life-threatening condition. Your doctor will want to closely monitor you. Be sure to go to all of your appointments. Orthopaedic Instructions: -Weight bearing status: Non weight bearing with the right arm -Always look for signs of compartment syndrome: pain out of proportion to the injury, pain not controlled with pain medication, numbness in digits, changing of color of digits (paleness). If these signs occur return to ED immediately for reassessment. -Always work on finger motion to decrease swelling. -Ice (20 minutes on and off 1 hour) and elevate to reduce swelling and throbbing pain. -Call the office or come to Emergency Room if signs of infection appear (hot, swollen, red, draining pus, fever) -Take medications as prescribed. -Wean off narcotics (percocet/norco) as soon as possible. Do not take tylenol if still taking narcotics. -Follow up with Dr. Argueta in his office on 10/10/2022 at 2:45pm. Call [phone] to confirm or with any questions/concerns. Head Injury Discharge Instructions Thank you for choosing [facility] for your recovery needs. The following instructions will help to ensure your comfort and that you are well prepared for your recovery. Follow-up Visit: The office is located at: [facility] [address] [place] [address], [address], [place] [address] Diet: You may resume your regular diet as tolerated. Activity: You should not be left alone. Have a relative or friend stay with you until they think you are back to normal. Do not drive or operate machinery until you are seen in the office. Avoid strenuous activities. No lifting or straining. Pain Management: Do not take aspirin, NSAID medications (Ibuprofen, Naprosyn, etc.) or Mcneal-2 inhibitors (Celebrex, etc.). You may be given a prescription for pain medication. Try not to take the pain medicine unless you need to. If you feel that you do not need something that strong, you may use regular or extra-strength Tylenol instead. DO NOT drink alcohol, drive or operate heavy machinery while taking your pain medications. YOU SHOULD CALL THE OFFICE AT [phone] IF YOU HAVE ANY OF THE FOLLOWING: Worsening headaches or headaches that feel different. Persistent nausea and/or vomiting. Changes in mental status such as confusion, slurred speech, increased sleepiness. Any new neurologic sensory or motor deficits (weakness, numbness) Seizures Loss of memory. Dizziness or fainting. Trouble walking or staggering. Blurry vision, double vision or other problems with your eyesight. Bleeding or clear liquid drainage from your ears or nose. Very sleepy (more than expected) or hard to wake up. Unusual sounds in the ear. Any new or increased symptoms. *If you are unable to contact someone at the office and your symptoms persist or increase, call 911 or go to the emergency department. Orthopaedic Instructions: -Weight bearing status: Non weight bearing with the left arm -Do not remove dressings or splint until your post-operative follow up date. It is important that you do not get your splint wet. To avoid this and still maintain proper hygiene, you can wrap a garbage/plastic bag (or similar waterproof material) about the splinted left arm and secure it with tape while showering. One should still attempt to keep splint out of water with this method. If your splint were to fall off, it is important that you do not attempt to put it back on. Instead, return to the orthopaedic clinic for reapplication (see number below to call). -Always look for signs of compartment syndrome: pain out of proportion to the injury, pain not controlled with pain medication, numbness in digits, changing of color of digits (paleness). If these signs occur return to ED immediately for reassessment. -Always work on finger motion (to non-injured fingers) while in splint to decrease swelling. -Ice (20 minutes on and off 1 hour) and elevate above the level of the heart to reduce swelling and throbbing pain. -Call the office or come to Emergency Room if signs of infection appear (hot, swollen, red, draining pus, fever). -Take medications as prescribed. -Wean off narcotics (percocet/norco) as soon as possible. Do not take tylenol if still taking narcotics. -Follow up with Dr. Argueta in his office 10/26/22 at 3:45pm. Call [phone] to schedule/confirm or with any questions/concerns. Splint Care Instructions: Home care Wear your splint according to your doctor s instructions. Keep the splint dry at all times. Bathe with your splint well out of the water. You can hold the splint outside the tub or shower when bathing. Protect it with a large plastic bag closed at the top end with a rubber band. Use two layers of plastic to help keep the splint dry. Or you can buy a waterproof shield. If a splint gets wet, dry it with a chair installer on the cool setting. Don t use the warm or hot setting, because those settings can burn your skin. Always keep the splint clean and away from dirt. Wash the Velcro straps and inner cloth sleeve (stockinet) with soapy water and air dry. Keep your splint away from open flames. Don t expose your splint to heat, space heaters, or prolonged sunlight. Excessive heat will cause the splint to change shape. Don t cut or tear the splint. Exercise all the nearby joints not kept still by the splint. If you have a long leg splint, exercise your hip joint and your toes. If you have an arm splint, exercise your shoulder, elbow, thumb, and fingers. Elevate the part of your body that is in the splint. This helps reduce swelling. It is important to ice (20 min on and 1 hour off) and elevate at heart level to decrease pain and swelling. Always look for signs of compartment syndrome: pain out of proportion to the injury, pain not controlled with pain medication, numbness in digits, changing of color of digits. If these signs occur return to ED immediately for reassessment. Follow-up care Make a follow-up appointment with your healthcare provider, or as advised. When to call your healthcare provider Call your healthcare provider right away if you have any of these: Tingling or numbness in the affected area Severe pain that cannot be relieved with medicine Splintt that feels too tight or too loose Swelling, coldness, or blue-brush color in the fingers or toes Splint that is damaged, cracked, or has rough edges that hurt Pressure sores or red zavala that don t go away within 1 hour after removing the splint Blisters If splint were to fall off or become saturated, do not attempt to put back on yourself. Return to ED immediately for reapplication if this occurs. Landry Mcmillan RN - 10/05/2022 8:15 AM EDT Continuity of Care Form Patient Name: Azael Agosto : 1965 Admit date: 10/01/2022 Discharge date: Code Status Order: Full Code Advance Directives: Admitting Physician: Jemraine Alexandra MD PCP: No primary care provider on file. Discharging Nurse: Discharging Hospital Unit/Room#: 0409/0409-01 Discharging Unit Phone Number: Emergency Contact: Extended Emergency Contact Information Primary Emergency Contact: chasidy agosto Relation: Spouse Admission Discharge Rn needed? No Past Surgical History: No past surgical history on file. Immunization History: There is no immunization history on file for this patient. Active Problems: Patient Active Problem List Diagnosis Code SAH (subarachnoid hemorrhage) ([facility]) I60.9 Subdural hematoma (HCC) S06.5XAA Traumatic intracranial subarachnoid hemorrhage (HCC) S06.6XAA Closed fracture of left distal radius S52.502A Closed Galeazzi's fracture of left radius S52.372A Isolation/Infection: Isolation No Isolation Patient Infection Status None to display Nurse Assessment: Last Vital Signs: BP 113/72 Pulse 83 Temp 98.7 F (37.1 C) (Temporal) Resp 12 Ht 5' 10 (1.778 m) Wt 170 lb 3.1 oz (77.2 kg) SpO2 96% BMI 24.42 kg/m Last documented pain score (0-10 scale): Pain Level: 0 Last Weight: Wt Readings from Last 1 Encounters: 10/01/22 170 lb 3.1 oz (77.2 kg) Mental Status: {IP PT MENTAL STATUS:} IV Access: { FRED IV ACCESS:629724261} Nursing Mobility/ADLs: Walking {[facility]P DME ADLs:084871827} Transfer {CHP DME ADLs:388203137} Bathing {CHP DME ADLs:132577161} Dressing {CHP DME ADLs:195500251} Toileting {CHP DME ADLs:364093402} Feeding {CHP DME ADLs:919560154} Chefs {[facility] DME ADLs:473590958} Med Delivery { FRED MED Delivery:431734314} Wound Care Documentation and Therapy: Elimination: Continence: Bowel: {YES / NO:} Bladder: {YES / NO:} Urinary Catheter: {Urinary Catheter:085874063} Colostomy/Ileostomy/Ileal Conduit: {YES / NO:} Date of Last BM: Intake/Output Summary (Last 24 hours) at 10/05/2022 0815 Last data filed at 10/05/2022 0631 Gross per 24 hour Intake 340 ml Output 2825 ml Net -2485 ml I/O last 3 completed shifts: In: 1061.7 [P.O.:400; I.V.:40.6; IV Piggyback:621.1] Out: 4375 [Urine:4375] Safety Concerns: { FRED Safety Concerns:035877408} Impairments/Disabilities: {[facility] Impairments/Disabilities:810193 273} Nutrition Therapy: Current Nutrition Therapy: { FRED Diet List:978895726} Routes of Feeding: {[facility] Other Feedings:438306785} Liquids: {[facility] liquid thickness:67422} Daily Fluid Restriction: {[facility] DME Yes amt example:732227969} Last Modified Barium Swallow with Video (Video Swallowing Test): {Done Not Done Date:} Treatments at the Time of Hospital Discharge: Respiratory Treatments: Oxygen Therapy: {Therapy; copd oxygen:50393} Ventilator: {[facility] Vent List:136169113} Rehab Therapies: {THERAPEUTIC INTERVENTION:2850615422} Weight Bearing Status/Restrictions: {[facility] Weight Bearin} Other Medical Equipment (for information only, NOT a DME order): {EQUIPMENT:024479758} Other Treatments: Patient's personal belongings (please select all that are sent with patient): {[facility] DME Belongings:091544028} RN SIGNATURE: {Esignature:998190108} CASE MANAGEMENT/SOCIAL WORK SECTION Inpatient Status Date: Readmission Risk Assessment Score: Readmission Risk Risk of Unplanned Readmission: 9 Discharging to Facility/ Agency Name: Address: Phone: Fax: Dialysis Facility (if applicable) Name: Address: Dialysis Schedule: Phone: Fax: Continuous Improvement Intern/Block Cutter signature: {Esignature:730314413} PHYSICIAN SECTION Prognosis: Good Condition at Discharge: Stable Rehab Potential (if transferring to Rehab): Good Recommended Labs or Other Treatments After Discharge: Physician Certification: I certify the above information and transfer of Azael Agosto is necessary for the continuing treatment of the diagnosis listed and that he requires Acute Rehab for less 30 days. Update Admission H&P: No change in H&P PHYSICIAN SIGNATURE: The following attachments cannot be sent through Care Everywhere.Wrist Fracture (Tanzanian)Subarachnoid Hemorrhage: General Info (Tanzanian)Subdural Hematoma (Tanzanian)Traumatic Brain Injury: Long-term Care (Tanzanian)Head Injury: Closed: General Info (Tanzanian)documented [facility] encounter [facility] History general Narrative - Reported 09-20-2022 Note Date & Type Note Facility 09-20-2022 History general N arrative - Reported Type Medical History Depression Surgical History hernia repair 1985 Surgical History left hand/wrist 09/2022 Hospitalization History hand surgery 09/2022 Issuu Other Evaluation note Note Date & Type Note Facility Evaluation note Diagnosis SAH (subarachnoid hemorrhage) (HCC)- Primary Subarachnoid hemorrhage Closed Galeazzi's fracture of left radius, initial encounter Subarachnoid bleed (HCC) Subarachnoid hemorrhage Orbital floor (blow-out) closed fracture (HCC) Orbital floor (blow-out), closed fracture Closed fracture of left side of maxilla, initial encounter ([facility]) Subdural hematoma (HCC) Subdural hemorrhage Traumatic intracranial subarachnoid hemorrhage (HCC) Closed fracture of left distal radius Other closed fractures of distal end of radius (alone) Closed Galeazzi's fracture of left radius Other closed fractures of distal end of radius (alone) documented in this encounter [facility] Summary Purpose Family History No Family History Records FoundNo Family History Records FoundNo Family History Records FoundNo Family History Records Found Advance Directives No Advanced Directives Records FoundLatest Code Status on File Code Status Date Activated Date Inactivated Comments Full Code 10/01/2022 12:50 PM Healthcare Agents on File Name Relationship Healthcare Agent Relationshi p Communication Chasidy Agosto Spouse Primary Decision Maker Additional Source Comments (unrecognized sect ion and content) No Status Records FoundNo Status Records FoundNo Status Records FoundNo Status Records Found INFORMATION SOURCE (unrecogn ized section and content) DATE CREATED AUTHOR 09/19/2021 [facility] DATE CREATED AUTHOR AUTHOR'S ORGANIZ ATION 06/10/2023 [facility] EPIC DATE CREATED AUTHOR AUTHOR'S ORGANIZ ATION 09/21/2023 [facility] DATE CREATED AUTHOR AUTHOR'S ORGANIZ ATION 10/02/2023 [facility] Reason for Visit (unrecogniz ed section and content) Reason Comments Fall Specialty Diagnoses / Procedures Referred By Contsimba t Referred To Contact Diagnoses SAH (subarachnoid hemorrhage) ([facility]) Jermaine Alexandra MD [address] [address] [facility] [id number] [place] [address] Referral ID Status Reason Start Date Expiration Date Visits Re quested Visits Authorized [id number] 1 1 Ordered Prescriptions (unrec ognized section and content) Prescription Sig Dispensed Refills Start Date End Da te levETIRAcetam (KEPPRA) 500 MG tablet Take 1 tablet by mouth 2 times daily for 2 doses 60 tablet 0 10/07/2022 10/08/2022 vitamin D (ERGOCALCIFEROL) 1.25 MG (40503 UT) CAPS capsule Take 1 capsule by mouth once a week 8 capsule 0 10/02/2022 Scheduled Active and Recently Administ ered Medications (unrecognized section and content) Medication Order 10/05/2022 10/06/2022 10/07/2022 acetaminophen (TYLENOL) tablet 1,000 mg 1,000 mg, Oral, EVERY 8 HOURS SCHEDULED (3 times per day), First dose on 10/03/22 at 1400, Until Discontinued, Maximum dose of acetaminophen is 4000 mg from all sources in 24 hours. 0627 (Given - Provider: Jodi Martinez RN)1300 (Given - Provider: Ingrid Bolden RN)2110 (Given - Provider: Bere Garcia RN) 0406 (Given - Provider: Bere Garcia RN)1350 (Held - Provider: Ingrid Bolden RN - Reason: Transfer to a Procedural area)1559 (MAR Hold - Provider: Eliza Autohold - Reason: Unreviewed Transfer Orders)1734 (MAR Unhold - Provider: Ingrid Bolden RN)2005 (Given - Provider: Cyndee Talbot RN) 0411 (Given - Provider: Melivn Moon RN)1401 (Given - Provider: Lubna Bro RN)2200 (Due) ceFAZolin (ANCEF) 2000 mg in sterile water 20 mL IV syringe (CANCELED) 2,000 mg, IntraVENous, EVERY 8 HOURS, First dose on Mon10/01/22 at 2000, Until Discontinued, Antimicrobial Indications: Head and Neck Infection, Administer over 5 mins. 0337 (Given - Provider: Jodi Martinez RN)1133 (Given - Provider: Ingrid Bolden RN)1944 (Given - Provider: Bere Garcia RN) 0353 (Given - Provider: Bere Garcia RN) ceFAZolin (ANCEF) 2000 mg in sterile water 20 mL IV syringe (COMPLETED) 2,000 mg, IntraVENous, EVERY 8 HOURS, 2 doses, First dose on Alexandra 10/06/22 at 2200, Last dose on Mon10/07/22 at 0600, Antimicrobial Indications: Surgical Prophylaxis, Administer over 5 mins. 2224 (Given - Provider: Melvin Moon RN) 0534 (Given - Provider: Melvin Moon RN) enoxaparin Sodium (LOVENOX) injection 30 mg 30 mg, SubCUTAneous, 2 TIMES DAILY, First dose on Mon10/02/22 at 2100, Until Discontinued, Indication of Use: Prophylaxis-DVT/PE, Administer by deep subCUTAneous injection with pt lying down. Alternate injection sites on abdominal wall. Do not rub site after injection. Check with provider prior to any invasive procedure. 0755 (Not Given - Provider: Ingrid Bolden RN - Reason: Other - Comment: hold per ortho)2002 (Not Given - Provider: Bere Garcia RN - Reason: Other - Comment: hold for surgery in AM) 041 (Held by provider - Provider: vL Jewell DO - Reason: Other - Comment: OR today)09 (Automatically Held - Provider: Lv Jewell DO)2099 (Automatically Held - Provider: Lv Jewell DO) 09 (Automatically Held - Provider: Lv Jewell DO)2099 (Automatically Held - Provider: Lv Jewell DO) enoxaparin Sodium (LOVENOX) injection 30 mg 30 mg, SubCUTAneous, 2 TIMES DAILY, First dose (after last reorder) on Mon10/07/22 at 0900, Until Discontinued, Indication of Use: Prophylaxis-DVT/PE, Administer by deep subCUTAneous injection with pt lying down. Alternate injection sites on abdominal wall. Do not rub site after injection. Check with provider prior to any invasive procedure. 09 (Given - Provider: Lubna Bro RN)2099 (Due) famotidine (PEPCID) tablet 20 mg (CANCELED) 20 mg, Oral, 2 TIMES DAILY, First dose on Mon10/03/22 at 2100, Until Discontinued 08 (Given - Provider: Ingrid Bolden RN) levETIRAcetam (KEPPRA) tablet 500 mg 500 mg, Oral, 2 TIMES DAILY, 10 doses, First dose on Mon10/03/22 at 2100, Last dose on Mon10/08/22 at 0900, Do not crush or chew. 0803 (Given - Provider: Ingrid Bolden RN)2110 (Given - Provider: Bere Garcia RN) 0747 (Given - Provider: Ingrid Bolden RN)1559 (MAR Hold - Provider: Eliza Autohold - Reason: Unreviewed Transfer Orders)1734 (MAR Unhold - Provider: Ingrid Bolden RN)2005 (Given - Provider: Cyndee Talbot RN) 0915 (Given - Provider: Lubna Bro RN)2099 (Due) polyethylene glycol (GLYCOLAX) packet 17 g 17 g, Oral, DAILY, First dose on Mon10/01/22 at 1300, Until Discontinued, Stir and dissolve one packet of powder (17 g) in any 4 to 8 ounces of beverage (cold, hot or room temperature) then drink 0803 (Given - Provider: Ingrid Bolden RN) 0748 (Given - Provider: Ingrid Bolden RN)1559 ([facility] Hold - Provider: Eliza Autohold - Reason: Unreviewed Transfer Orders)1734 (MAR Unhold - Provider: Ingrid Bolden RN) 0915 (Given - Provider: Lubna Bro RN) sertraline (ZOLOFT) tablet 25 mg (CANCELED) 25 mg, Oral, DAILY, First dose on e 10/04/22 at 0900, Until Discontinued 0803 (Given - Provider: Ingrid Bolden RN) sertraline (ZOLOFT) tablet 50 mg 50 mg, Oral, DAILY, First dose (after last modification) on Alexandra 10/06/22 at 0900, Until Discontinued 0747 (Given - Provider: Ingrid Bolden RN)1559 ([facility] Hold - Provider: Eliza Autohold - Reason: Unreviewed Transfer Orders)1734 ([facility] Unhold - Provider: Ingrid Bolden RN) 0915 (Given - Provider: Lubna Bro RN) sodium chloride flush 0.9 % injection 5-40 mL (CANCELED) 5-40 mL, IntraVENous, EVERY 12 HOURS SCHEDULED (2 times per day), First dose on 10/01/22 at 2100, Until Discontinued, For Line Patency: Peripheral IV = 5 mL; Midline or Central Line = 10 mL/lumen. If following IV push medication, administer flush at same rate as the IV push. Flush volume is determined by type of infusion therapy being given. For non-viscous solutions use: Peripheral IV = 5 mL Midline or Central Line = 10 mL/lumen For viscous solutions (i.e. blood components, parenteral nutrition, contrast media, or after obtaining blood sample) use: Peripheral IV = 10 mL Midline or Central Line = 20 mL/lumen 0803 (Given - Provider: Ingrid Bolden RN) PRN Medication Order 10/05/2022 10/06/2022 10/07/2022 oxyCODONE (ROXICODONE) immediate release tablet 5 mg 5 mg, Oral, EVERY 6 HOURS PRN, Starting on 10/03/22 at 1205, Until Discontinued, Pain Severe (7-10) 0932 (Given - Provider: Ingrid Bolden RN) 1559 ([facility] Hold - Provider: Eliza Autohold - Reason: Unreviewed Transfer Orders)1734 ([facility] Unhold - Provider: Ingrid Bolden RN)1742 (Given - Provider: Ingrid Bolden RN) 0400 (Given - Provider: Melvin Moon RN) sod chloride IRR soln 0.9 % irrigation (CANCELED) CONTINUOUS PRN, Starting on Alexandra 10/06/22 at 1434, Intra-op 1434 (New Bag - Provider: Jun Argueta DO) sodium chloride flush 0.9 % injection 5-40 mL 5-40 mL, IntraVENous, PRN, Starting on 10/01/22 at 1235, Until Discontinued, Line Care, After every IV line use, For Line Patency: Peripheral IV = 5 mL; Midline or Central Line = 10 mL/lumen. If following IV push medication, administer flush at same rate as the IV push. Flush volume is determined by type of infusion therapy being given. For non-viscous solutions use: Peripheral IV = 5 mL Midline or Central Line = 10 mL/lumen For viscous solutions (i.e. blood components, parenteral nutrition, contrast media, or after obtaining blood sample) use: Peripheral IV = 10 mL Midline or Central Line = 20 mL/lumen 1559 ([facility] Hold - Provider: Eliza Autohold - Reason: Unreviewed Transfer Orders)1734 ([facility] Unhold - Provider: Ingrid Bolden RN)2007 (Given - Provider: Cyndee Talbot RN) 0915 (Given - Provider: Lubna Bro RN) tobramycin (NEBCIN) injection (CANCELED) PRN, Starting on Alexandra 10/06/22 at 1508, Until Alexandra 10/06/22 at 1542, Intra-op 1515 (Given - Provider: Jun Argueta DO) vancomycin (VANCOCIN) injection (CANCELED) PRN, Starting on Alexandra 10/06/22 at 1508, Until Alexandra 10/06/22 at 1542, Intra-op 1515 (Given - Provider: Jun Argueta DO) FOR RECORDS PERTAINING TO PATIENTS WHO ARE OR HAVE BEEN ENROLLED IN A CHEMICAL DEPENDENCY/SUBSTANCEABUSE PROGRAM, SOME INFORMATION MAY BE OMITTED. This clinical summary was aggregated from multiple sources. Caution should be exercised in using it in the provision of clinical care. This summary normalizes information from multiple sources, and as a consequence, information in this document may materially change the coding, format and clinical context of patient data. In addition, data may be omitted in some cases. CLINICAL DECISIONS SHOULD BE BASED ON THE PRIMARY CLINICAL RECORDS. [facility] [employer] [facility]. provides no warranty or guarantee of the accuracy or completeness of information in this document.
--- NOTE | 2023-10-10 07:40 | MR_ITS ---
The [address] [address] Patient Name: AZAEL AGOSTO MRN: [id number] date: 1965 Sex: M Assigned Patient Location: LAB Current Patient Location: Accession/Order Number: [id number] Exam Date: 10/10/2023 09:02 Report Date: 10/11/2023 08:03 At the request of: NON-STAFF PHYSICIAN Procedure: MR head/brain wo/w con MR head/brain wo/w con, 10/10/2023 9:02 AM EDT INDICATION: Left Homonymous H53.462, Closed Blowout Fracture Left Orbit COMPARISON: Prior CT of the head dated 04/14/2020 TECHNIQUE: Multiplanar, multisequential MRI images of brain were obtained without and with injection of contrast. FINDINGS: The cerebral sulci as well as ventricular system are appropriate for age. There is no restricted diffusion. Hyperintensities on T2 and FLAIR images in the ocampo radiata and centrum semiovale with sparing of U fibers are nonspecific, most likely consistent with microvascular ischemic changes or traumatic brain injury or combination of both. There are hemosiderin depositions in the frontal lobes left more than right most likely due to prior traumatic brain injury. There is no intracranial mass, mass effect, midline shift, intra or extra-axial fluid collection or large hemorrhage. No abnormal enhancing lesion is noted. Normal flow-void in the intracranial vessels is noted. There is a retention cyst within the right maxillary sinus. The visualized portions of orbits, mastoid air cells as well as remainder of paranasal sinuses are unremarkable. MR/MR head/brain wo/w con IMPRESSION: No acute intracranial process is noted. 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 No finding to suggest a typical neurodegenerative process. Electronically authenticated by: AMAIRANI BURCH Date: 10/11/2023 08:03
[2023-10-10 08:51] LABS: Estimated GFR (African America >60 (>=60); Estimated GFR (Non-African Ame >60 (>=60)
== END 2023-10-10 07:20 | disposition home or self-care (01) ==
LOC: LAB 07:22
PROVIDERS: PCP Family Medicine
DX: H53.462 Homonymous bilateral field defects, left side (principal); S02.32XS Fracture of orbital floor, left side, sequela; S06.6X0S Traumatic subarachnoid hemorrhage without loss of consciousness, sequela
CPT/HCPCS: 36415; 70553; 82565; A9575